=== PATIENT | female | born 1945 | race Asian ===

== ENCOUNTER 2018-11-01 11:13 | Inpatient (IN) | payer MEDICARE, OTHER ==
--- NOTE | 2018-11-01 11:26 | PDOC ---
Attending Attestation - Resident Resident Name: Sa Ramandeepira - ED Attending Attestation I have performed the following: I have examined & evaluated the patient, The case was reviewed & discussed with the resident, I agree w/resident's findings & plan, Exceptions are as noted - HPI HPI: 73 yo F hx DM, HTN, HL presents with near syncope, sent by the OR. She was scheduled for elective hernia repair, but has not been feeling well. Has had urge to defecate, then strains, then almost passes out. Found to have bradycardia and hypotension, sent to ED for evaluation. - Physicial Exam PE: GENERAL: Awake, alert, and fully oriented, in no acute distress HEAD: No signs of trauma EYES: PERRLA, EOMI, sclera anicteric, conjunctiva clear ENT: Auricles normal inspection, hearing grossly normal, nares patent, oropharynx clear without exudates. Moist mucosa NECK: Normal ROM, supple, no lymphadenopathy, JVD, or masses LUNGS: Breath sounds equal, clear to auscultation bilaterally. No wheezes, and no crackles HEART: Bradycardic, normal S1 and S2, no murmurs, rubs or gallops ABDOMEN: Soft, nontender, normoactive bowel sounds. No guarding, no rebound. No masses EXTREMITIES: Normal range of motion, no edema. No clubbing or cyanosis. No cords, erythema, or tenderness NEUROLOGICAL: Cranial nerves II through XII grossly intact. Normal speech. Motor and sensation intact. Gait not tested due to nature of complaint. SKIN: Warm, Dry, normal turgor, no rashes or lesions noted. - Critical Care Time Total Critical Care Time: 60 Critical Care Statement: The care of this patient involved high complexity decision making to prevent further life threatening deterioration of the patient 's condition and/or to evaluate & treat vital organ system(s) failure or risk of failure. - Medical Decision Making 11/01/18 11:56 Pt with symptomatic bradycardia, found to have junctional rhythm on EKG. Atropine given with improvement in HR and BP. Will cont to monitor and give as needed. Pacer pads on. Labs, CXR, admit 11/01/18 12:41 Lab called, the CMP is hemolyzed, K was 7.8. We called back for creatinine, as we can start to treat if we suspect hyperkalemia. Creatinine is >2. Will give calcium and sodium bicarb. Repeat specimen sent now, await result. Will contact ICU at [facility] for approval. 11/01/18 12:[address] Guo, awaiting response. 11/01/18 13:22 Unhemolyzed K is 7.2. Case discussed with Dr. Houston. 11/01/18 13:38 Pt accepted to ICU bed 2. Will discuss admission with hospitalist presently. BLOCK SEALER Richard en route to ED. 11/01/18 13:42 Accepted for admission by hospitalist. Will arrange for transfer. 11/01/18 14:00 Second IV line placed by this blurb writer, to L hand. 11/01/18 14:16 Cardio consult changed to Dr. Perry. Pt initially stated her financial reporting consultant was not in our system, however, the pre-op was done by Dr. Perry (this information just came in). 11/01/18 15:03 EMS preparing patient for transport. Heart Score/ECG Review - ECG Impressions Comment:: EKG read 11:26- junctional rhythm, 46 bpm, no acute ST/T changes
[2018-11-01] MEDS ORDERED: ATROPINE SULFATE 1 MG/10 ML DISP.SYRIN IVPUSH ONE (11:36)
[2018-11-01] MEDS ORDERED: ATROPINE SULFATE 1 MG/10 ML DISP.SYRIN ONE (11:45)
--- NOTE | 2018-11-01 11:54 | PDOC ---
History of Present Illness - General Chief Complaint: Syncope/Near Syncope Stated Complaint: NEAR SYNCOPE Time Seen by Provider: 11/01/18 11:21 History Source: Family Exam Limitations: Language Barrier - History of Present Illness Initial Comments: 11/01/18 11:44 Pt is a 73yo F with PMH of HTN, DM, Hypothyroidism, HLD, Ventral Hernia presenting to ED for near-syncope. Per daughter, pt was to be getting ventral hernia repair today. Pt has been having severe abdominal pains and feels the need to have a bowel movement when she has it. Per daughter, pt started to have abdominal pain and went to use the bathroom. She was straining and started to turn blue. Pt was sent down to the ED. Fingerstick was 266. Pt is denying SOB, chest pain, lightheadedness, syncope, back pain, headache, numbness/tingling, cough, fevers, chills, vomiting, diarrhea. Endorses abdominal pain. No hemturia , dysuria, bloody stools. Pt had pre-op workup a couple day ago and pt had normal labs, ekg and stress test. Is not taking beta blockers. Had an episode of bradycardia in the past but was taking metoprolol. PMD: [place]: [facility] PMH: see hpi PSH: none Meds: see med rec Allergies: nkda Past History - Past Medical History Allergies/Adverse Reactions: Allergies Allergy/AdvReac Type Severity Reaction Status Date / Time No Known Allergies Allergy Verified 11/01/18 11:14 Home Medications: Ambulatory Orders Amlodipine Besylate 10 mg PO DAILY 10/28/18 Enalapril Maleate [Vasotec -] 10 mg PO BID 10/28/18 Insulin Glargine,Hum.rec.anlog [Lantus] 50 unit SQ DAILY 10/28/18 Insulin Sliding Scale [Novolog Vial Sliding Scale -] 10 units SQ DAILY 10/28/18 Levothyroxine [Synthroid -] 50 mcg PO DAILY 10/28/18 Simvastatin 10 mg PO HS 10/28/18 metFORMIN HCL [Metformin HCl] 1,000 mg PO BID 10/28/18 Anemia: No Asthma: No Cancer: No Cardiac Disorders: No CVA: No COPD: No CHF: No Dementia: No Diabetes: Yes GI Disorders: Yes (HERNIA) Disorders: No HTN: Yes Hypercholesterolemia: Yes Liver Disease: No Seizures: No Thyroid Disease: Yes - Suicide/Smoking/Psychosocial Hx Smoking History: Never smoked Have you smoked in the past 12 months: No Information on smoking cessation initiated: No Hx Alcohol Use: No Drug/Substance Use Hx: No Substance Use Type: None Hx Substance Use Treatment: No Cardiac Specific PMH - Complaint Specific PMHX Pacemaker: No Review of Systems - Review of Systems Constitutional: No: Chills, Fever, Weakness HEENTM: No: Symptoms Reported Respiratory: No: Symptoms reported, Cough, Shortness of Breath Cardiac (ROS): Yes: See HPI. No: Chest Pain, Lightheadedness, Palpitations ABD/GI: Yes: Constipated, Nausea, Abdominal cramping. No: Diarrhea, Rectal Bleeding, Vomiting, Tarry Stools : No: Symptoms Reported Musculoskeletal: No: Back Pain, Joint Pain, Neck Pain Integumentary: No: Symptoms Reported Neurological: No: Headache, Numbness, Tingling, Weakness *Physical Exam - Vital Signs Last Vital Signs Temp Pulse Resp BP Pulse Ox 98 F 62 20 103/49 L 99 11/01/18 14:12 11/01/18 14:12 11/01/18 14:12 11/01/18 14:12 11/01/18 14:12 - Physical Exam General Appearance: Yes: Nourished, Appropriately Dressed. No: Apparent Distress HEENT: positive: EOMI, CRYSTAL, Normal ENT Inspection Neck: positive: Trachea midline, Supple. negative: Lymphadenopathy (R), Lymphadenopathy (L) Respiratory/Chest: positive: Lungs Clear, Normal Breath Sounds Cardiovascular: positive: S1, S2, Bradycardia. negative: Edema, JVD, Murmur Vascular Pulses: Carotid (R): 2+, Carotid (L): 2+, Dorsalis-Pedis (R): 2+, Doralis-Pedis (L): 2+ Gastrointestinal/Abdominal: positive: Normal Bowel Sounds, Soft, Hernia. negative: Guarding, Rebound Musculoskeletal: negative: CVA Tenderness Extremity: positive: Normal Capillary Refill. negative: Pedal Edema, Swelling, Calf Tenderness Integumentary: positive: Normal Color, Dry, Warm Neurologic: positive: final assembly and packing supervisor II-XII NML intact, Fully Oriented, Alert, Normal Mood/ Affect, Normal Response, Motor Strength 11/06 ED Treatment Course - LABORATORY CBC & Chemistry Diagram: 11/01/18 11:40 11/01/18 12:40 - ADDITIONAL ORDERS Additional order review: Laboratory Results 11/01/18 11/01/18 11/01/18 12:40 11:40 11:40 PT with INR 14.1 H INR 1.27 H PTT (Actin FS) 26.6 Sodium 130 L Potassium 7.2 H* Chloride 104 Carbon Dioxide 13 L Anion Gap 13 BUN 32 H Creatinine 2.7 H Creat Clearance w eGFR 17.23 Random Glucose 228 H Calcium 9.7 Magnesium 1.5 L Total Bilirubin 1.0 AST 63 H ALT 52 Alkaline Phosphatase 60 Troponin I Total Protein 7.5 Albumin 4.2 TSH 7.86 H 11/01/18 11/01/18 11:40 11:40 PT with INR INR PTT (Actin FS) Sodium Cancelled Potassium Cancelled Chloride Cancelled Carbon Dioxide Cancelled Anion Gap Cancelled BUN Cancelled Creatinine Cancelled Creat Clearance w eGFR Cancelled Random Glucose Cancelled Calcium Cancelled Magnesium Cancelled Total Bilirubin Cancelled AST Cancelled ALT Cancelled Alkaline Phosphatase Cancelled Troponin I 0.05 Total Protein Cancelled Albumin Cancelled TSH 11/01/18 11:40 RBC 3.40 L MCV 95.0 MCHC 33.6 RDW 12.5 MPV 10.9 Neutrophils % 66.9 Lymphocytes % 25.6 Monocytes % 5.5 Eosinophils % 0.5 Basophils % 1.5 - Medications Given in the ED: ED Medications Discontinued Medications Generic Name Dose Route Start Last Admin Trade Name Freq PRN Reason Stop Dose Admin Acetaminophen 1,000 mg 11/01/18 12:17 11/01/18 12:25 Ofirmev Injection - IVPB 11/01/18 12:18 1,000 mg ONCE ONE Administration Albuterol Sulfate 1 amp 11/01/18 12:36 11/01/18 12:48 Ventolin 0.083% Nebulizer Soln - NEB 11/01/18 12:37 1 amp ONCE ONE Administration Atropine Sulfate 1 mg 11/01/18 11:36 11/01/18 11:50 Atropine Injection - IVPUSH 11/01/18 11:37 1 mg ONCE ONE Administration Calcium Gluconate 1,000 mg 11/01/18 12:35 11/01/18 13:03 Calcium Gluconate 10% - IVPUSH 11/01/18 12:36 1,000 mg ONCE ONE Administration Dextrose 25 gm 11/01/18 13:06 11/01/18 13:25 D50w (Vial) - IVPUSH 11/01/18 13:07 25 gm NOW ONE Administration Sodium Chloride 1,000 mls @ 1,000 mls/hr 11/01/18 12:32 11/01/18 12:38 Normal Saline - IV 11/01/18 13:31 1,000 mls/hr ASDIR STA Administration Insulin Human Regular 6 units 11/01/18 13:06 11/01/18 13:50 Novolin R Vial *For Ivpush Or Iv Drip Only* IVPUSH 11/01/18 13:07 6 units ONCE ONE Administration Ondansetron HCl 4 mg 11/01/18 12:32 11/01/18 12:36 Zofran Injection IVPUSH 11/01/18 12:33 4 mg ONCE ONE Administration Sodium Bicarbonate 50 meq 11/01/18 12:39 11/01/18 12:54 Sodium Bicarbonate 8.4% - IVPUSH 11/01/18 12:40 50 meq ONCE ONE Administration Medical Decision Making - Critical Care Time Total Critical Care Time (minutes): 40 Critical Care Statement: The care of this patient involved high complexity decision making to prevent further life threatening deterioration of the patient 's condition and/or to evaluate & treat vital organ system(s) failure or risk of failure. - Medical Decision Making Pt is a 73yo F with PMH of HTN, DM, Hypothyroidism, HLD, Ventral Hernia presenting to ED for near-syncope. Per daughter, pt was to be getting ventral hernia repair today. Pt has been having severe abdominal pains and feels the need to have a bowel movement when she has it. Per daughter, pt started to have abdominal pain and went to use the bathroom. She was straining and started to turn blue. Pt was sent down to the ED. Fingerstick was 266. Pt is denying SOB, chest pain, lightheadedness, syncope, back pain, headache, numbness/tingling, cough, fevers, chills. Endorses abdominal pain. No hemturia, dysuria, bloody stools. Pt had pre-op workup a couple day ago and pt had normal labs, ekg and stress test. Is not taking beta blockers. Had an episode of bradycardia in the past but was taking metoprolol. Vitals: HR high 30s, BP 90s/40s, saturating well on 2L NC. PE: extremities feel cold, lungs cta, bradycardic, mentating well, soft abdomen, ventral hernia. ddx includes but not limited to arrhythmia, acs, mi, shock (septic v. cardiogenic v. hypovolemic), hypoglycemia, hypothyroidism, electrolyte abnormality, malignancy, autoimmune disorder, perforation, AAA -ekg -labs -cxr. -atropine, fluids 11/01/18 11:55 after atropine 1mg: HR in 70s. BP 126/96. 97% 2L NC repeat EKG. shows junctional rhythm. labs hemolyzed however lab reported hemolyzed sample K 7.8. Cr 2.7 -calcium gluconate, bicarb, albuterol 11/01/18 13:07 10/28 labs: K 5.4, Cr 0.86 BUN 14 10/28 EKG: NSR at [address] Haji about pt. labs show K 7.2, Cr 2.7, M 1.5. Dr. Houston on board, pt needs dialysis and icu. Pt accepted to icu. pt difficult stick. second line access in L hand. *DC/Admit/Observation/Transfer Diagnosis at time of Disposition: LOPEZ (acute kidney injury), Hyperkalemia, Bradycardia Hypotension Qualifiers: Hypotension type: unspecified hypotension type Qualified Code(s): I95.9 - Hypotension, unspecified - Discharge Dispostion Condition at time of disposition: Stable Decision to Admit order Date/Time: Decision to Admit Order Category Date Time Status Decision to Admit to Hospital Routine Admission 11/01/18 13:09 Active - Referrals - Patient Instructions - Post Discharge Activity
[2018-11-01 11:55] LABS: BASO % 1.5 % (0-2.0); EOS % 0.5 % (0-4.5); HEMATOCRIT 32.3 % (32.4-45.2); HEMOGLOBIN 10.9 GM/dl (10.7-15.3); LYMPH % 25.6 % (8-40); MCHC 33.6 g/dl (32.0-36.0); MEAN PLT VOLUME 10.9 fl (7.5-11.1); MONO % 5.5 % (3.8-10.2); NEUT % 66.9 % (42.8-82.8); PLATELET COUNT 198 K/MM3 (134-434); RDW 12.5 % (11.6-15.6); WHITE BLOOD COUNT 9.4 K/mm3 (4.0-10.8)
[2018-11-01] MEDS ORDERED: ACETAMINOPHEN 1000 MG/100 ML VIAL (NON FORMULARY) IVPB ONE (12:17)
[2018-11-01] MEDS ORDERED: ACETAMINOPHEN INJECTION 100 ML IVPB ONE (12:20)
[2018-11-01] MEDS ORDERED: SODIUM CHLORIDE 1,000 ML IV STA (12:32)
[2018-11-01] MEDS ORDERED: ONDANSETRON 4 MG/2 ML VIAL ONE (12:32)
[2018-11-01] MEDS ORDERED: ONDANSETRON 4 MG/2 ML VIAL IVPUSH ONE (12:32)
[2018-11-01 12:34] LABS: ACTIVATED PTT 26.6 SECONDS (25.2-36.5)
[2018-11-01] MEDS ORDERED: SODIUM BICARBONATE 4.2% 5 MEQ/10 ML DISP.SYRIN IVPUSH ONE (12:35)
[2018-11-01] MEDS ORDERED: CALCIUM GLUCONATE 10% - 1,000 MG/10 ML VIAL IVPUSH ONE ×2 (12:35→18:46)
[2018-11-01] MEDS ORDERED: ALBUTEROL SO4 0.083% IH SOL 2.5 MG/3 ML VIAL.NEB. NEB ONE ×3 (12:36→18:47)
[2018-11-01 12:38] LABS: INR 1.27 (0.82-1.09); PROTHROMBIN TIME (PATIENT) 14.1 SEC (10.2-13.0)
[2018-11-01] MEDS ORDERED: SODIUM BICARBONATE 8.4% 50 MEQ/50 ML DISP.SYRIN IVPUSH ONE ×4 (12:39→17:37)
[2018-11-01] MEDS ORDERED: CALCIUM GLUCONATE 10% - 1,000 MG/10 ML VIAL ONE (12:40)
[2018-11-01] MEDS ORDERED: SODIUM BICARBONATE 8.4% 50 MEQ/50 ML VIAL ONE ×2 (12:40→17:54)
[2018-11-01 13:06] LABS: POTASSIUM 7.2 mmol/L (3.5-5.1)
[2018-11-01] MEDS ORDERED: DEXTROSE 50%-WATER - 25 GM/50 ML VIAL IVPUSH ONE ×2 (13:06→18:48)
[2018-11-01] MEDS ORDERED: INSULIN REGULAR HUMAN 100 UNITS/ML *VIAL IVPUSH ONE ×2 (13:06→18:47)
[2018-11-01] MEDS ORDERED: DEXTROSE 50%-WATER 25 GM/50 ML DISP.SYRIN ONE (13:09)
[2018-11-01] MEDS ORDERED: INSULIN REGULAR HUMAN 100 UNITS/ML *VIAL ONE (13:09)
[2018-11-01 13:11] LABS: ALBUMIN 4.2 g/dl (3.4-5.0); ALK PHOS 60 U/L (45-117); ANION GAP 13 MMOL/L (8-16); BLOOD UREA NITROGEN 32 mg/dl (7-18); CALCIUM 9.7 mg/dl (8.5-10); CHLORIDE 104 mmol/L (98-107); CO2 13 mmol/L (21-32); CREATININE 2.7 mg/dl (0.55-1.3); GLUCOSE,RANDOM 228 mg/dl (74-106); MAGNESIUM 1.5 mg/dL (1.8-2.4); SGOT/AST 63 U/L (15-37); SGPT/ALT 52 U/L (13-61); SODIUM 130 mmol/L (136-145); TOT PROT 7.5 g/dl (6.4-8.2)
--- NOTE | 2018-11-01 14:07 | HP ---
CHIEF COMPLAINT: Syncope PCP: HISTORY OF PRESENT ILLNESS: 73 year-old female with a PMH significant for HTN, HLD, and Type II IDDM. Patient was scheduled for a ventral hernia repair today but it was cancelled due to the following events. Last night patient was eating dinner when she experienced lower abdominal cramping. She felt the urge to move her bowels and went toward the bathroom. She became incontinent of a small amount of diarrhea on the floor. She then vomited a small amount. This morning patient came to [facility] for her planned surgery. She again developed abdominal cramping. She went to the bathroom, strained to have a BM, and syncopized on the toilet. Patient was stabilized and transferred to the ED. Patient had pre-op medical and cardiology evaluations which were unremarkable ( see paper chart). She had an echocardiagram and a nuclear stress test which were normal. Her pre-op labs were normal. ER course was notable for: (1) ECG: junctional rhythm @46bpm (2) Hypotensive (91/44, 103/38); given NS x 1L (3) K 7.2; serum bicarb 13; BUN 32; Cr 2.7 (pre-op 0.8); Mg 1.5 Recent Travel: No PAST MEDICAL HISTORY: Hypertension Hyperlipidemia Type II IDDM PAST SURGICAL HISTORY: None reported Social History: 5 children; lives with daughter Smoking: never Alcohol: no Drugs: no Family History: Allergies No Known Allergies Allergy (Verified 11/01/18 11:14) HOME MEDICATIONS: Home Medications Medication Instructions Recorded Amlodipine Besylate 10 mg PO DAILY 10/28/18 Enalapril Maleate [Vasotec -] 10 mg PO BID 10/28/18 Insulin Glargine,Hum.rec.anlog 50 unit SQ DAILY 10/28/18 [Lantus] Insulin Sliding Scale [Novolog 10 units SQ DAILY 10/28/18 Vial Sliding Scale -] Levothyroxine [Synthroid -] 50 mcg PO DAILY 10/28/18 Simvastatin 10 mg PO HS 10/28/18 metFORMIN HCL [Metformin HCl] 1,000 mg PO BID 10/28/18 REVIEW OF SYSTEMS CONSTITUTIONAL: Absent: fever, chills, diaphoresis, generalized weakness, malaise, loss of appetite, weight change HEENT: Absent: rhinorrhea, nasal congestion, throat pain, throat swelling, difficulty swallowing, mouth swelling, ear pain, eye pain, visual changes CARDIOVASCULAR: Absent: chest pain, syncope, palpitations, irregular heart rate, lightheadedness , peripheral edema RESPIRATORY: Absent: cough, shortness of breath, dyspnea with exertion, orthopnea, wheezing, stridor, hemoptysis GASTROINTESTINAL: +abdominal cramping, incontinence of stool, diarrhea Absent: abdominal pain, abdominal distension, nausea, vomiting, diarrhea, constipation, melena, hematochezia GENITOURINARY: Absent: dysuria, frequency, urgency, hesitancy, hematuria, flank pain, genital pain MUSCULOSKELETAL: Absent: myalgia, arthralgia, joint swelling, back pain, neck pain SKIN: Absent: rash, itching, pallor HEMATOLOGIC/IMMUNOLOGIC: Absent: easy bleeding, easy bruising, lymphadenopathy, frequent infections ENDOCRINE: Absent: unexplained weight gain, unexplained weight loss, heat intolerance, cold intolerance NEUROLOGIC: Absent: headache, focal weakness or paresthesias, dizziness, unsteady gait, seizure, mental status changes, bladder or bowel incontinence PSYCHIATRIC: Absent: anxiety, depression, suicidal or homicidal ideation, hallucinations. PHYSICAL EXAMINATION Vital Signs - 24 hr 11/01/18 11/01/18 11/01/18 11:13 11:20 11:54 Temperature 98 F Pulse Rate 47 L 48 L Pulse Rate [ 71 Left Apical] Respiratory 18 16 Rate Blood Pressure 94/47 L Blood Pressure 126/96 [Left Arm] O2 Sat by Pulse 92 L 97 97 Oximetry (%) GENERAL: Awake, alert, and fully oriented, in no acute distress. HEAD: Normal with no signs of trauma. EYES: Pupils equal, round and reactive to light, extraocular movements intact, sclera anicteric, conjunctiva clear. No lid lag. EARS, NOSE, THROAT: Ears normal, nares patent, oropharynx clear without exudates. Dry mucous membranes. LUNGS: Breath sounds equal, clear to auscultation bilaterally. No wheezes, and no crackles. No accessory muscle use. HEART: Regular rate and rhythm, normal S1 and S2 ABDOMEN: Soft, nontender, not distended, hypoactive bowel sounds, no guarding, no rebound tenderness. MUSCULOSKELETAL: Normal range of motion at all joints. No bony deformities or tenderness. No CVA tenderness. UPPER EXTREMITIES: 2+ pulses, warm, well-perfused. No cyanosis. No clubbing. No peripheral edema. LOWER EXTREMITIES: 2+ pulses, warm, well-perfused. No calf tenderness. No peripheral edema. NEUROLOGICAL: Cranial nerves II-XII intact. Normal speech. Laboratory Results - last 24 hr 11/01/18 11/01/18 11/01/18 11:40 11:40 11:40 WBC 9.4 RBC 3.40 L Hgb 10.9 Hct 32.3 L MCV 95.0 MCH 32.0 MCHC 33.6 RDW 12.5 Plt Count 198 MPV 10.9 Absolute Neuts (auto) 6.4 Neutrophils % 66.9 Lymphocytes % 25.6 Monocytes % 5.5 Eosinophils % 0.5 Basophils % 1.5 PT with INR INR PTT (Actin FS) Sodium Cancelled Potassium Cancelled Chloride Cancelled Carbon Dioxide Cancelled Anion Gap Cancelled BUN Cancelled Creatinine Cancelled Creat Clearance w eGFR Cancelled Random Glucose Cancelled Calcium Cancelled Magnesium Cancelled Total Bilirubin Cancelled AST Cancelled ALT Cancelled Alkaline Phosphatase Cancelled Troponin I 0.05 Total Protein Cancelled Albumin Cancelled TSH 11/01/18 11/01/18 11/01/18 11:40 11:40 12:40 WBC RBC Hgb Hct MCV MCH MCHC RDW Plt Count MPV Absolute Neuts (auto) Neutrophils % Lymphocytes % Monocytes % Eosinophils % Basophils % PT with INR 14.1 H INR 1.27 H PTT (Actin FS) 26.6 Sodium 130 L Potassium 7.2 H* Chloride 104 Carbon Dioxide 13 L Anion Gap 13 BUN 32 H Creatinine 2.7 H Creat Clearance w eGFR 17.23 Random Glucose 228 H Calcium 9.7 Magnesium 1.5 L Total Bilirubin 1.0 AST 63 H ALT 52 Alkaline Phosphatase 60 Troponin I Total Protein 7.5 Albumin 4.2 TSH 7.86 H ASSESSMENT/PLAN 73 year-old female with a PMH significant for HTN, HLD, and Type II IDDM. Admitted for acute renal failure, hyperkalemia, and bradycardia. Patient had pre-op medical and cardiology evaluations which were unremarkable ( see paper chart). She had an EKG, echocardiagram, and a nuclear stress test all of which were normal. Her pre-op labs were normal. ER course was notable for: (1) ECG: junctional rhythm @46bpm; given atropine 1mg x 1 (2) Hypotensive (91/44, 103/38); given NS x 1L (3) K 7.2; serum bicarb 13; BUN 32; Cr 2.7 (pre-op 0.8); Mg 1.5 (4) calcium gluconate 1g x 1; regular insulin 6U; D50 25g x 1; Mg 1g x 1; sodium bicarb 50meq x 1 Bradycardia --pre-op echo was normal, ECG was sinus rhythm --in ED: junctional rhythm @ 46bpm; mildly hypotensive; atropine administered ; pacer pads on --first troponin neg, two pending --telemetry monitoring --correct electrolyte derangement --cardiology consult Dr. Perry pending, he is aware Acute kidney injury --Cr 2.7, pre-op on 10/20 was 0.86; CTAP on 07/27/18 showed normal kidneys ( paper chart) --appears dry; mackenzie placed with NO urine output; last time urinated was 8: 30am this morning --IV fluids --urine studies --renal consult Dr. Houston pending, he is aware Hyperkalemia --calcium gluconate, insulin, D50 given in ED --repeat lytes at 5:00pm Hypomagnesemia --repleted in ED --repeat lytes at 5:00pm Hyponatremia --corrected Na 132 Type II IDDM --A1C 6.6 on pre-op testing --Novolog sliding scale coverage DVT prophylaxis: SCDs Dispo: awaiting transfer to ICU. Full code. Visit type - Emergency Visit Emergency Visit: Yes Care time: The patient presented to the Emergency Department on the above date and was hospitalized for further evaluation of their emergent condition. - New Patient This patient is new to me today: Yes Date on this admission: 11/01/18 - Critical Care Critical Care patient: Yes Total Critical Care Time (in minutes): 90 Critical Care Statement: The care of this patient involved high complexity decision making to prevent further life threatening deterioration of the patient 's condition and/or to evaluate & treat vital organ system(s) failure or risk of failure.
[2018-11-01] MEDS ORDERED: MAGNESIUM SULF 50% (8.12 MEQ/2 ML-1 GM VIAL) IVPB ONE ×2 (14:54→14:58)
[2018-11-01] MEDS ORDERED: MAGNESIUM 1GM/D5W - 2 GM/200 ML IVPB IVPB ONE (14:57)
--- NOTE | 2018-11-01 15:07 | EKG ---
Test Reason : Blood Pressure : / mmHG Vent. Rate : 072 BPM Atrial Rate : 110 BPM P-R Int : 000 ms QRS Dur : 088 ms QT Int : 376 ms P-R-T Axes : 000 045 043 degrees QTc Int : 411 ms ATRIAL FIBRILLATION WITH A COMPETING JUNCTIONAL PACEMAKER POSSIBLE ANTERIOR INFARCT , AGE UNDETERMINED ABNORMAL ECG WHEN COMPARED WITH ECG OF 01-NOV-2018 11:22, ATRIAL FIBRILLATION HAS REPLACED JUNCTIONAL RHYTHM VENT. RATE HAS INCREASED BY 26 BPM Confirmed by MD ASH MOYSES ([id number]) on 11/01/2018 3:07:44 PM Referred By: YVONNE MAYER Confirmed By:NELA ASH MD
--- NOTE | 2018-11-01 15:09 | EKG ---
Test Reason : Blood Pressure : / mmHG Vent. Rate : 046 BPM Atrial Rate : 267 BPM P-R Int : 000 ms QRS Dur : 086 ms QT Int : 436 ms P-R-T Axes : 000 046 041 degrees QTc Int : 381 ms JUNCTIONAL RHYTHM ABNORMAL ECG NO PREVIOUS ECGS AVAILABLE Confirmed by MD ASH MOYSES ([id number]) on 11/01/2018 3:08:33 PM Referred By: YVONNE MAYER Confirmed By:NELA ASH MD
[2018-11-01] MEDS ORDERED: SODIUM CHLORIDE 1,000 ML IV SCH ×3 (16:15→19:00)
--- NOTE | 2018-11-01 16:22 | CONSULT ---
Consultation: REQUESTING PROVIDER: CONSULT REQUEST: We have been asked to medically evaluate this patient for hyperkalemia. HISTORY OF PRESENT ILLNESS: Patient is a 73 y/o female with a history of HTN, DM, and hypothyroidism who presented to [place] for an elective hernia repair. Patient began having cramping last night. She felt as if she had to use the bathroom but stool did not come out. This cramping would come and go. She was able to pass a little stool this morning. She went to [facility] for her surgery and while there she began to feel dizzy with cramping. She was found to be bradycardic. She has had this hernia for about 6 months now, without any problems before. Hyperkalemia, shiley placed by Dr. Benitez, patient to have emergent dialysis tonight REVIEW OF SYSTEMS: Denies: fever, chills, chest pain, shortness of breath, diarrhea, headaches Pertinent: nausea; cramping, dizziness PHYSICAL EXAMINATION Vital Signs Temperature 97.6 F 11/01/18 16:06 Pulse Rate 54 L 11/01/18 16:06 Respiratory Rate 30 H 11/01/18 16:06 Blood Pressure 119/91 11/01/18 16:06 O2 Sat by Pulse Oximetry (%) 93 L 11/01/18 15:56 GENERAL: Awake, alert, and fully oriented, in no acute distress. HEAD: Normal with no signs of trauma. EYES: Pupils equal, round and reactive to light, extraocular movements intact, LUNGS: Breath sounds equal, clear to auscultation bilaterally. No wheezes, and no crackles. No accessory muscle use. HEART: Regular rate and rhythm, normal S1 and S2 without murmur, rub or gallop. ABDOMEN: Soft,large reproducible ventral hernia, skin cool over hernia, not painful to deep palpation, minimal bowel sounds heard MUSCULOSKELETAL: Normal range of motion at all joints. LOWER EXTREMITIES: 2+ pulses, warm, well-perfused. No calf tenderness. No peripheral edema. PSYCHIATRIC: Cooperative. Good eye contact. Appropriate mood and affect. SKIN: Warm, dry, normal turgor, no rashes or lesions noted. CBCD WBC 9.4 K/mm3 (4.0-10.8) 11/01/18 11:40 RBC 3.40 M/mm3 (3.60-5.2) L 11/01/18 11:40 Hgb 10.9 GM/dl (10.7-15.3) 11/01/18 11:40 Hct 32.3 % (32.4-45.2) L 11/01/18 11:40 MCV 95.0 fl (80-96) 11/01/18 11:40 MCHC 33.6 g/dl (32.0-36.0) 11/01/18 11:40 RDW 12.5 % (11.6-15.6) 11/01/18 11:40 Plt Count 198 K/MM3 (134-434) 11/01/18 11:40 MPV 10.9 fl (7.5-11.1) 11/01/18 11:40 CMP Sodium 130 mmol/L (136-145) L 11/01/18 12:40 Potassium 7.2 mmol/L (3.5-5.1) H* 11/01/18 12:40 Chloride 104 mmol/L (98-107) 11/01/18 12:40 Carbon Dioxide 13 mmol/L (21-32) L 11/01/18 12:40 Anion Gap 13 MMOL/L (8-16) 11/01/18 12:40 BUN 32 mg/dl (7-18) H 11/01/18 12:40 Creatinine 2.7 mg/dl (0.55-1.3) H 11/01/18 12:40 Creat Clearance w eGFR 17.23 (>60) 11/01/18 12:40 Calcium 9.7 mg/dl (8.5-10) 11/01/18 12:40 Total Bilirubin 1.0 mg/dl (0.2-1) 11/01/18 12:40 AST 63 U/L (15-37) H 11/01/18 12:40 ALT 52 U/L (13-61) 11/01/18 12:40 Alkaline Phosphatase 60 U/L (45-117) 11/01/18 12:40 Total Protein 7.5 g/dl (6.4-8.2) 11/01/18 12:40 Albumin 4.2 g/dl (3.4-5.0) 11/01/18 12:40 Active Medications Atorvastatin Calcium (Lipitor -) 10 mg PO HS SU Chlorhexidine Gluconate (Hibiclens For Decolonization -) 1 applic TP HS SU Sodium Chloride (Normal Saline -) 1,000 mls @ 75 mls/hr IV ASDIR SU Insulin Aspart (Novolog Vial) 0 units SQ ACHS SU; Protocol Levothyroxine Sodium (Synthroid -) 50 mcg PO DAILY@0700 [facility] Mupirocin (Bactroban Ointment (For Decolonization) -) 1 applic NS BID SU Stop: 11/06/18 21:59 ASSESSMENT/PLAN: Patient is a 73 y/o female with a history of HTN, DM, and hypothyroidism who presented to [place] for an elective hernia repair. Neuro - A& O x3 - stable Cardio - recent bradycardia and syncope, likely 2/2 to straining - junctional bradycardia 2/2 to high K - ekg changes showing a junctional rhytym on ekg, f/u repeat ekg - followed by Cardio - BP improved with fluids - hx of hypertension hold for now Pulm - stable Renal - K: 7.2, repeat 7.5, - insulin, D5, and calcium gluconate, and albuterol given at [place], another round of insulin calcium gluconate and albuterol - followed by Dr. Houston, f/u repeat BMP - f/u renal ultrasound, urine lytes - bicarb increase BMP not in computer: K : 7.5, Na 132, Ca 9, Cl 103, CO2 16, glucose 229, Mg 2.2, BUN 33, Phosp 5.2, Cr 5.3 - Shiley placement per Dr. Benitez, patient to go to dialysis tonight per Dr Dr. Houston - f/u K closely - continue NS @ 100 - could be 2/[address] with contrast for hernia preoperatively, otherwise no hx of CKD GI - NPO - abdominal CT to r/o incarcerated hernia - non tender and passing flatus ID - afebrile, unlikely infectious source - f/u blood cx, urine cx Endo - hx hypothyroidism, continue levothyroxine 50 mcg - hx DM, monitor sugars can add SS if needed Heme - SCD's for prophylaxis FEN - NPO - normal saline - monitor lytes closely Dispo: We will continue to follow the patient. Thank you for this consultative opportunity. Visit type - Emergency Visit Emergency Visit: No - New Patient This patient is new to me today: Yes Date on this admission: 11/01/18 - Critical Care Critical Care patient: Yes Total Critical Care Time (in minutes): 60 Critical Care Statement: The care of this patient involved high complexity decision making to prevent further life threatening deterioration of the patient 's condition and/or to evaluate & treat vital organ system(s) failure or risk of failure.
--- NOTE | 2018-11-01 16:34 | HOSP ---
Subjective - Review of Symptoms General: Yes: Fatigue HEENT: Yes: Other Pulmonary: Yes: Other Gastrointestinal: Yes: Abdominal Pain Genitourinary: Yes: Retention Neurological: Yes: Weakness Physical Examination Vital Signs: Vital Signs Temperature 97.6 F 11/01/18 16:06 Pulse Rate 54 L 11/01/18 16:06 Respiratory Rate 30 H 11/01/18 16:06 Blood Pressure 119/91 11/01/18 16:06 O2 Sat by Pulse Oximetry (%) 93 L 11/01/18 15:56 Constitutional: Yes: No Distress Eyes: Yes: WNL HENT: Yes: WNL Neck: Yes: WNL Cardiovascular: Yes: Other Respiratory: Yes: Regular Gastrointestinal: Yes: Normal Bowel Sounds, Soft Labs: CBC, BMP 11/01/18 11:40 11/01/18 12:40 Hospitalist Encounter Assessment: patient is a 73 year old female with past medical history of HTN, DM, hypothyroidism, HLD, ventral hernia presenting to ED for near-syncope. Patient scheduled for a ventral hernia repair but has been having severe abdominal pain and a near syncopal episode at home. patient had a pre op workup up a few days prior and reported to be within normal limits. Patient transfer from [place], signout received on this patient hyperkalemia @ 7.4. awake alert, in no acute distress. icu monitoring for elevated K, electrolyte imbalance and elevated lactic acid. no urine output on mackenzie catheter, to be replaced by primary RN patient offers no complaints. repeat abd/pelvis ct without contrast family at bedside.
--- NOTE | 2018-11-01 17:14 | CON.CARD ---
Cardiology Consult (text) - Consultation Consultation Note: cc: syncope hpi: 73 f hx htn, hld, dm, hypothyroid, here with syncope. Pt was here for elective hernia repair today. Prior to surgery she had abd pain and tried to use restroom. While on toilet she was pushing and then per family member she passed out. Evaluated and found to have low bp and hr and sent to ER. In er had junctional rhythm in 30s and given atropine with improvement. Found to be in joyce with k in 7s. Transferred to icu. Had been feeling well until last night when had n/v and diarrhea with abd pain. Sees me for cardio. pmh: per hpi psh: nc social: no tob fam: no premature cad scd ros: per hpi; all others normal meds: Home Medications Medication Instructions Recorded Amlodipine Besylate 10 mg PO DAILY 10/28/18 Enalapril Maleate [Vasotec -] 10 mg PO BID 10/28/18 Insulin Glargine,Hum.rec.anlog 50 unit SQ DAILY 10/28/18 [Lantus] Insulin Sliding Scale [Novolog 10 units SQ DAILY 10/28/18 Vial Sliding Scale -] Levothyroxine [Synthroid -] 50 mcg PO DAILY 10/28/18 Simvastatin 10 mg PO HS 10/28/18 metFORMIN HCL [Metformin HCl] 1,000 mg PO BID 10/28/18 pe: Vital Signs Period Temp Pulse Resp BP Sys/Cordova Pulse Ox Last 24 Hr 97.6 F-98 F 47-71 16-30 91-126/38-96 92-99 nad no jvd rrr s1s2 no mrg cta bl nl eff aao3 no le e/c/c abd nt nd pos bs no jaundice diaphoresis pos dp pt no carotid bruits Laboratory Last Values WBC 9.4 K/mm3 (4.0-10.8) 11/01/18 11:40 RBC 3.40 M/mm3 (3.60-5.2) L 11/01/18 11:40 Hgb 10.9 GM/dl (10.7-15.3) 11/01/18 11:40 Hct 32.3 % (32.4-45.2) L 11/01/18 11:40 MCV 95.0 fl (80-96) 11/01/18 11:40 MCH 32.0 pg (25.7-33.7) 11/01/18 11:40 MCHC 33.6 g/dl (32.0-36.0) 11/01/18 11:40 RDW 12.5 % (11.6-15.6) 11/01/18 11:40 Plt Count 198 K/MM3 (134-434) 11/01/18 11:40 MPV 10.9 fl (7.5-11.1) 11/01/18 11:40 Absolute Neuts (auto) 6.4 K/mm3 11/01/18 11:40 Neutrophils % 66.9 % (42.8-82.8) 11/01/18 11:40 Lymphocytes % 25.6 % (8-40) 11/01/18 11:40 Monocytes % 5.5 % (3.8-10.2) 11/01/18 11:40 Eosinophils % 0.5 % (0-4.5) 11/01/18 11:40 Basophils % 1.5 % (0-2.0) 11/01/18 11:40 PT with INR 14.1 SEC (10.2-13.0) H 11/01/18 11:40 INR 1.27 (0.82-1.09) H 11/01/18 11:40 PTT (Actin FS) 26.6 SECONDS (25.2-36.5) 11/01/18 11:40 Sodium 130 mmol/L (136-145) L 11/01/18 12:40 Potassium 7.2 mmol/L (3.5-5.1) H* 11/01/18 12:40 Chloride 104 mmol/L (98-107) 11/01/18 12:40 Carbon Dioxide 13 mmol/L (21-32) L 11/01/18 12:40 Anion Gap 13 MMOL/L (8-16) 11/01/18 12:40 BUN 32 mg/dl (7-18) H 11/01/18 12:40 Creatinine 2.7 mg/dl (0.55-1.3) H 11/01/18 12:40 Creat Clearance w eGFR 17.23 (>60) 11/01/18 12:40 Random Glucose 228 mg/dl (74-106) H 11/01/18 12:40 Calcium 9.7 mg/dl (8.5-10) 11/01/18 12:40 Magnesium 1.5 mg/dL (1.8-2.4) L 11/01/18 12:40 Total Bilirubin 1.0 mg/dl (0.2-1) 11/01/18 12:40 AST 63 U/L (15-37) H 11/01/18 12:40 ALT 52 U/L (13-61) 11/01/18 12:40 Alkaline Phosphatase 60 U/L (45-117) 11/01/18 12:40 Troponin I 0.05 ng/ml (0.00-0.05) 11/01/18 11:40 Total Protein 7.5 g/dl (6.4-8.2) 11/01/18 12:40 Albumin 4.2 g/dl (3.4-5.0) 11/01/18 12:40 TSH 7.86 uIU/ml (0.358-3.74) H 11/01/18 11:40 ecgs reviewed: junctional rhythm with no ischemic changes, hr 46, nl qtc. Repeat ecg with sr and competing junctional rhythm, no ischemic findings, nl qtc tele: sr with competing jcnal rhythm, hr 50s-60s cxr: clear lungs echo 10/2018: nl lv/rv, no sig valve path mibi 10/2018: nl mpi est cct 35 mins a/p: 73 f hx htn, hld, dm, hypothyroid, here with syncope. syncope, bradycardia, hypotension: -syncope seems to be vagal episode from straining for BM and abd pain -she also has junctional bradycardia likely 2/2 to k in 7's. Continued correction of hyperkalemia should improve HR. currently hr stable in 50s-60s with sinus brandi and competing junctional rhythm -bp also improved with ivfs -monitor in icu on tele joyce, hyperkalemia: -recent preop labs unremarkable but now presenting with joyce and hyperkalemia -ivfs -renal consulted n/v, abd pain: -consider GI eval htn: -hold home meds for now given hypotension hypothyroid -on synthroid hld: -cont statin
[2018-11-01] MEDS ORDERED: SODIUM CHLORIDE 0.9% 500 ML INFUS.BAG IV ONE (17:29)
[2018-11-01] MEDS ORDERED: DEXTROSE 5%-WATER 500 ML PVC-FREE INFUS.BAG IV SCH (17:45)
--- NOTE | 2018-11-01 18:01 | CONSULT ---
Consult Consult Specialty:: Nephrology Reason for Consultation:: LOPEZ and hyperkalemia - History of Present Illness Chief Complaint: sent by OR to ER for hypotension and bradycardia History of Present Illness: Pt is a 73 year old female with pmhx of DM, HTN, and HLD who was initially admitted to [place] for elective hernia repair. She was found to be hypotensive an bradycardic. She was sent to the ER for further management. She was found to have a junctional rythm with a rate of 30 to 40 in the ER. On bloodwork she was found to be hyperkalemic. I was called to evaluate her. She was on lisinopril as outpt and dose recently increased. She is awake and alert. SHe denies dysuria or hematuria. She denies history of CKD. She denies nsaid use. - History Source History Provided By: Patient, Family Member, Medical Record - Past Medical History Cardio/Vascular: Yes: HTN, Hyperlipdemia Gastrointestinal: Yes: Other (hernia) ...: No Endocrine: Yes: Diabetes Mellitus - Alcohol/Substance Use Hx Alcohol Use: No - Smoking History Smoking history: Never smoked Have you smoked in the past 12 months: No Home Medications - Allergies Allergies/Adverse Reactions: Allergies Allergy/AdvReac Type Severity Reaction Status Date / Time No Known Allergies Allergy Verified 11/01/18 11:14 - Home Medications Home Medications: Ambulatory Orders Amlodipine Besylate 10 mg PO DAILY 10/28/18 Enalapril Maleate [Vasotec -] 10 mg PO BID 10/28/18 Insulin Glargine,Hum.rec.anlog [Lantus] 50 unit SQ DAILY 10/28/18 Insulin Sliding Scale [Novolog Vial Sliding Scale -] 10 units SQ DAILY 10/28/18 Levothyroxine [Synthroid -] 50 mcg PO DAILY 10/28/18 Simvastatin 10 mg PO HS 10/28/18 metFORMIN HCL [Metformin HCl] 1,000 mg PO BID 10/28/18 Family Disease History - Family Disease History Family History: Denies Review of Systems - Review of Systems Constitutional: reports: Malaise Eyes: reports: No Symptoms HENT: reports: No Symptoms Neck: reports: No Symptoms Cardiovascular: reports: No Symptoms Respiratory: reports: No Symptoms Gastrointestinal: reports: No Symptoms Genitourinary: reports: No Symptoms Musculoskeletal: reports: No Symptoms Integumentary: reports: No Symptoms Neurological: reports: No Symptoms Endocrine: reports: No Symptoms Hematology/Lymphatic: reports: No Symptoms Psychiatric: reports: No Symptoms Physical Exam Vital Signs: Vital Signs Temperature 97.6 F 11/01/18 16:06 Pulse Rate 54 L 11/01/18 16:06 Respiratory Rate 30 H 11/01/18 16:06 Blood Pressure 119/91 11/01/18 16:06 O2 Sat by Pulse Oximetry (%) 93 L 11/01/18 15:56 Constitutional: Yes: Calm Eyes: Yes: Conjunctiva Clear HENT: Yes: Atraumatic Cardiovascular: Yes: S1, S2 Respiratory: Yes: CTA Bilaterally Gastrointestinal: Yes: Soft Renal/: Yes: Mackenzie Present Musculoskeletal: Yes: WNL Edema: No Neurological: Yes: Oriented Psychiatric: Yes: Oriented Labs: Laboratory Tests 11/01/18 11/01/18 11:40 12:40 WBC 9.4 Hgb 10.9 Plt Count 198 Sodium 130 L Potassium 7.2 H* Chloride 104 Carbon Dioxide 13 L BUN 32 H Creatinine 2.7 H Imaging - Results Chest X-ray: Report Reviewed Assessment/Plan Current Medications Generic Name Dose Route Start Last Admin Trade Name Freq PRN Reason Stop Dose Admin Atorvastatin Calcium 10 mg 11/01/18 22:00 Lipitor - PO HS [facility] Chlorhexidine Gluconate 1 applic 11/01/18 22:00 Hibiclens For Decolonization - TP HS [facility] Sodium Chloride 1,000 mls @ 75 mls/hr 11/01/18 16:15 Normal Saline - IV ASDIR [facility] Sodium Bicarbonate 150 meq/ 1,150 mls @ 100 mls/hr 11/01/18 17:45 Dextrose IV Q11H [facility] Insulin Aspart 0 units 11/01/18 16:30 Novolog Vial SQ ACHS [facility] Protocol Levothyroxine Sodium 50 mcg 11/02/18 07:00 Synthroid - PO DAILY@0700 [facility] Mupirocin 1 applic 11/01/18 22:00 Bactroban Ointment (For Decolonization) - NS 11/06/18 21:59 BID [facility] Impression 1. LOPEZ 2. hyperkalemia 3. metabolic acidosis 4. DM 5. hernia 6. hypothyroidism Plan - potassium treated medically in ER - repeat bmp - rate is improving, still has juncitonal rythmn, discussed with cardio - will dialyze if her potassium is not responding - hold metformin - stop olivreio - check lactic acid - cont with fluids - pt now has access - flush mackenzie - check ultrasound kidneys - admit to ICU
[2018-11-01 18:07] LABS: BASO % 0.2 % (0-2.0); EOS % 0.2 % (0-4.5); HEMOGLOBIN 9.8 GM/dL (10.7-15.3); LYMPH % 25.1 % (8-40); MCHC 33.6 g/dl (32.0-36.0); MEAN CELL VOLUME 95.1 fl (80-96); MEAN PLT VOLUME 10.8 fl (7.5-11.1); MONO % 6.2 % (3.8-10.2); NEUT % 68.3 % (42.8-82.8); PLATELET COUNT 169 K/MM3 (134-434); RBC 3.05 M/mm3 (3.60-5.2); RDW 13.1 % (11.6-15.6); WHITE BLOOD COUNT 8.7 K/mm3 (4.0-10.0)
[2018-11-01 18:35] LABS: INR 1.14 (0.83-1.09); PROTHROMBIN TIME (PATIENT) 13.5 SEC (9.7-13.0)
[2018-11-01] MEDS: SODIUM BICARBONATE 8.4% - 150 MEQ in DEXTROSE 5%-WATER - 1,000 ML IV SCH (18:50)
[2018-11-01] MEDS: INSULIN (NOVOLOG) ASPART 100 UNITS/ML 10ML VIAL SQ SCH ×2 (18:51→22:39)
[2018-11-01] MEDS ORDERED: SODIUM CHLORIDE 250 ML IV PRN (19:02)
--- NOTE | 2018-11-01 19:05 | PN ---
Progress Note (short form) - Note Progress Note: Pt still with hyperkalemia. Spoke to family and they agree for HD. Called vascular surgery for edgar. HD at bedside in ICU today.
--- NOTE | 2018-11-01 19:17 | PN ---
Progress Note (short form) - Note Progress Note: Vascular Surgery left femoral vein edgar placed. Guide wire removed. all ports flushed. can use for HD Kayode Benitez DO
[2018-11-01 19:55] LABS: BLOOD UREA NITROGEN 33 mg/dL (7-18); GLUCOSE,RANDOM 229 mg/dL (74-106)
[2018-11-01 19:56] LABS: ANION GAP 13 MMOL/L (8-16); CHLORIDE 103 mmol/L (98-107); CO2 16 mmol/L (21-32); CREATININE 3.3 mg/dL (0.55-1.3); MAGNESIUM 2.2 mg/dL (1.8-2.4); PHOSPHOROUS 5.2 mg/dL (2.5-4.9); SODIUM 132 mmol/L (136-145)
[2018-11-01 20:00] LABS: POTASSIUM 7.5 mmol/L (3.5-5.1)
[2018-11-01] MEDS ORDERED: PATIENT'S OWN MEDICATION (NON-FORMULARY) (Simvastatin [Simvastatin] 10 MG) PO SCH (22:00)
[2018-11-01] MEDS: CHLORHEXIDINE GLUCONATE 4% CLEANSER FOR DECOLONIZATION TP SCH (22:12)
[2018-11-01] MEDS: ATORVASTATIN CA 10 MG TABLET (FP) PO SCH (22:12)
[2018-11-02 00:30] LABS: ANION GAP 8 MMOL/L (8-16); BLOOD UREA NITROGEN 11 mg/dL (7-18); CALCIUM 8.1 mg/dL (8.5-10.1); CHLORIDE 102 mmol/L (98-107); CO2 30 mmol/L (21-32); CREATININE 1.2 mg/dL (0.55-1.3); GLUCOSE,RANDOM 175 mg/dL (74-106); POTASSIUM 3.5 mmol/L (3.5-5.1); SODIUM 139 mmol/L (136-145)
--- NOTE | 2018-11-02 00:32 | PN ---
Progress Note (short form) - Note Progress Note: Laboratory Tests 11/01/18 23:10 Sodium 139 Potassium 3.5 Chloride 102 Carbon Dioxide 30 Anion Gap 8 BUN 11 Creatinine 1.2 post HD labs reviewed, potassium improved. pulse is improved.
[2018-11-02 01:14] LABS: MAGNESIUM 1.4 mg/dL (1.8-2.4); PHOSPHOROUS 2.5 mg/dL (2.5-4.9)
[2018-11-02] MEDS: MUPIROCIN 2% TOPICAL OINTMENT FOR DECOLONIZATION NS SCH ×3 (02:10→22:36)
[2018-11-02] MEDS: MAGNESIUM OXIDE 400 MG TABLET (FP) PO ONE ×2 (03:48→03:49)
[2018-11-02] MEDS: SODIUM BICARBONATE 8.4% - 150 MEQ in DEXTROSE 5%-WATER - 1,000 ML IV SCH (04:49)
[2018-11-02] MEDS: LEVOTHYROXINE NA 50 MCG TABLET (FP) PO SCH (06:03)
[2018-11-02] MEDS: INSULIN (NOVOLOG) ASPART 100 UNITS/ML 10ML VIAL SQ SCH ×4 (06:04→22:36)
[2018-11-02 06:48] LABS: HEMATOCRIT 30.3 % (32.4-45.2); HEMOGLOBIN 10.4 GM/dL (10.7-15.3); MCH 32.3 pg (25.7-33.7); MCHC 34.5 g/dl (32.0-36.0); MEAN CELL VOLUME 93.8 fl (80-96); MEAN PLT VOLUME 10.2 fl (7.5-11.1); PLATELET COUNT 150 K/MM3 (134-434); RBC 3.23 M/mm3 (3.60-5.2); WHITE BLOOD COUNT 6.7 K/mm3 (4.0-10.0)
[2018-11-02 07:14] LABS: ALBUMIN 3.3 g/dl (3.4-5.0); ALK PHOS 62 U/L (45-117); ANION GAP 6 MMOL/L (8-16); BILIRUBIN,TOTAL 0.8 mg/dL (0.2-1); BLOOD UREA NITROGEN 17 mg/dL (7-18); CALCIUM 8.5 mg/dL (8.5-10.1); CHLORIDE 102 mmol/L (98-107); CO2 29 mmol/L (21-32); CREATININE 1.9 mg/dL (0.55-1.3); GLUCOSE,RANDOM 230 mg/dL (74-106); MAGNESIUM 1.7 mg/dL (1.8-2.4); PHOSPHOROUS 4.6 mg/dL (2.5-4.9); POTASSIUM 4.4 mmol/L (3.5-5.1); SGOT/AST 41 U/L (15-37); SGPT/ALT 49 U/L (13-61); SODIUM 137 mmol/L (136-145); TOT PROT 6.9 g/dl (6.4-8.2)
[2018-11-02] MEDS ORDERED: MAGNESIUM SULF 50% (8.12 MEQ/2 ML-1 GM VIAL) IVPB ONE (07:39)
[2018-11-02] MEDS ORDERED: SODIUM CHLORIDE 1,000 ML IV SCH ×2 (08:45→11:30)
--- NOTE | 2018-11-02 10:39 | PN ---
Progress Note (short form) - Note Progress Note: s: feels better today. no chest pain, palps, dizziness, dyspnea Current Medications Atorvastatin Calcium (Lipitor -) 10 mg PO HS [facility] Last Admin: 11/01/18 22:12 Dose: 10 mg Chlorhexidine Gluconate (Hibiclens For Decolonization -) 1 applic TP HS [facility] Last Admin: 11/01/18 22:12 Dose: 1 applic Sodium Chloride (Normal Saline -) 250 mls @ 3,000 mls/hr IV PRN PRN PRN Reason: Hypotension during Dialysis Stop: 11/02/18 19:02 Sodium Chloride (Normal Saline -) 1,000 mls @ 100 mls/hr IV ASDIR [facility] Last Admin: 11/02/18 09:43 Dose: 100 mls/hr Insulin Aspart (Novolog Vial) 0 units SQ ACHS [facility]; Protocol Last Admin: 11/02/18 06:04 Dose: 4 units Levothyroxine Sodium (Synthroid -) 50 mcg PO DAILY@0700 [facility] Last Admin: 11/02/18 06:03 Dose: 50 mcg Mupirocin (Bactroban Ointment (For Decolonization) -) 1 applic NS BID [facility] Stop: 11/06/18 21:59 Last Admin: 11/02/18 09:44 Dose: 1 applic Vital Signs Period Temp Pulse Resp BP Sys/Cordova Pulse Ox Last 24 Hr 97.6 F-98.4 F 47-91 16-32 91-129/38-96 91-99 nad no jvd rrr s1s2 no mrg cta bl nl eff aao3 no le e/c/c abd nt nd pos bs no jaundice diaphoresis pos dp pt no carotid bruits ecgs reviewed: junctional rhythm with no ischemic changes, hr 46, nl qtc. Repeat ecg with sr and competing junctional rhythm, no ischemic findings, nl qtc tele: sinus rhythm 70s-80s cxr: clear lungs echo 10/2018: nl lv/rv, no sig valve path mibi 10/2018: nl mpi est cct 35 mins a/p: 73 f hx htn, hld, dm, hypothyroid, here with syncope. syncope, bradycardia, hypotension: -syncope seems to be vagal episode from straining for BM and abd pain -she also has junctional bradycardia likely 2/2 to k in 7's. HR improved with correction of hyperkalemia -monitor in icu on tele joyce, hyperkalemia: -recent preop labs unremarkable but now presenting with joyce and hyperkalemia, improved -ivfs -renal consulted n/v, abd pain: -consider GI eval htn: -hold home meds for now given hypotension hypothyroid -on synthroid hld: -cont statin
[2018-11-02 10:53] LABS: EPI CELLS >36 /HPF (0-5/HPF); PH,URINE >= 9.0 (5.0-8.0); URINE APPEARANCE CLOUDY; URINE BACTERIA 6.8 /hpf (NEGATIVE); URINE BILIRUBIN NEGATIVE (NEGATIVE); URINE CASTS 154 /lpf (0-8); URINE COLOR YELLOW; URINE GLUCOSE (UA) NEGATIVE (NEGATIVE); URINE KETONE NEGATIVE (NEGATIVE); URINE LEUK ESTERASE 2+ (NEGATIVE); URINE NITRITE NEGATIVE (NEGATIVE); URINE PROTEIN NEGATIVE (NEGATIVE); URINE RBC 5 /hpf (0-4); URINE UROBILINOGEN 0.2 mg/dL (0.2-1.0); URINE WBC 21 /hpf (0-5)
--- NOTE | 2018-11-02 12:07 | PN ---
Physical Exam: SUBJECTIVE: Patient seen and examined, without complaint this morning. K back to normal with hemodialysis last night. OBJECTIVE: Vital Signs Temperature 98 F 11/02/18 06:00 Pulse Rate 77 11/02/18 07:51 Respiratory Rate 22 H 11/02/18 07:51 Blood Pressure 106/67 11/02/18 07:51 O2 Sat by Pulse Oximetry (%) 91 L 11/02/18 07:51 GENERAL: Awake, alert, and fully oriented, in no acute distress. HEAD: Normal with no signs of trauma. EYES: Pupils equal, round and reactive to light, extraocular movements intact, LUNGS: Breath sounds equal, clear to auscultation bilaterally. No wheezes, and no crackles. No accessory muscle use. HEART: Regular rate and rhythm, normal S1 and S2 without murmur, rub or gallop. ABDOMEN: Soft,large reproducible ventral hernia, skin cool over hernia, not painful to deep palpation, minimal bowel sounds heard MUSCULOSKELETAL: Normal range of motion at all joints. LOWER EXTREMITIES: 2+ pulses, warm, well-perfused. No calf tenderness. No peripheral edema. PSYCHIATRIC: Cooperative. Good eye contact. Appropriate mood and affect. SKIN: Warm, dry, normal turgor, no rashes or lesions noted. CBCD WBC 6.7 K/mm3 (4.0-10.0) 11/02/18 05:30 RBC 3.23 M/mm3 (3.60-5.2) L 11/02/18 05:30 Hgb 10.4 GM/dL (10.7-15.3) L 11/02/18 05:30 Hct 30.3 % (32.4-45.2) L 11/02/18 05:30 MCV 93.8 fl (80-96) 11/02/18 05:30 MCHC 34.5 g/dl (32.0-36.0) 11/02/18 05:30 RDW 13.0 % (11.6-15.6) 11/02/18 05:30 Plt Count 150 K/MM3 (134-434) 11/02/18 05:30 MPV 10.2 fl (7.5-11.1) 11/02/18 05:30 CMP Sodium 137 mmol/L (136-145) 11/02/18 05:30 Potassium 4.4 mmol/L (3.5-5.1) 11/02/18 05:30 Chloride 102 mmol/L (98-107) 11/02/18 05:30 Carbon Dioxide 29 mmol/L (21-32) 11/02/18 05:30 Anion Gap 6 MMOL/L (8-16) L 11/02/18 05:30 BUN 17 mg/dL (7-18) 11/02/18 05:30 Creatinine 1.9 mg/dL (0.55-1.3) H 11/02/18 05:30 Creat Clearance w eGFR 25.84 (>60) 11/02/18 05:30 Calcium 8.5 mg/dL (8.5-10.1) 11/02/18 05:30 Total Bilirubin 0.8 mg/dL (0.2-1) 11/02/18 05:30 AST 41 U/L (15-37) H 11/02/18 05:30 ALT 49 U/L (13-61) 11/02/18 05:30 Alkaline Phosphatase 62 U/L (45-117) 11/02/18 05:30 Total Protein 6.9 g/dl (6.4-8.2) 11/02/18 05:30 Albumin 3.3 g/dl (3.4-5.0) L 11/02/18 05:30 Active Medications Atorvastatin Calcium (Lipitor -) 10 mg PO HS [facility] Last Admin: 11/01/18 22:12 Dose: 10 mg Chlorhexidine Gluconate (Hibiclens For Decolonization -) 1 applic TP HS [facility] Last Admin: 11/01/18 22:12 Dose: 1 applic Heparin Sodium (Porcine) (Heparin -) 5,000 unit SQ TID [facility] Sodium Chloride (Normal Saline -) 250 mls @ 3,000 mls/hr IV PRN PRN PRN Reason: Hypotension during Dialysis Stop: 11/02/18 19:02 Sodium Chloride (Normal Saline -) 1,000 mls @ 50 mls/hr IV ASDIR [facility] Stop: 11/03/18 11:26 Ceftriaxone Sodium 1 gm/ (Dextrose) 50 mls @ 100 mls/hr IVPB DAILY [facility]; Protocol Azithromycin (Zithromax 500mg Ivpb (Pre-Docked)) 500 mg in 250 mls @ 250 mls/ hr IVPB DAILY [facility] Insulin Aspart (Novolog Vial) 0 units SQ ACHS [facility]; Protocol Last Admin: 11/02/18 11:16 Dose: 6 units Levothyroxine Sodium (Synthroid -) 50 mcg PO DAILY@0700 [facility] Last Admin: 11/02/18 06:03 Dose: 50 mcg Mupirocin (Bactroban Ointment (For Decolonization) -) 1 applic NS BID [facility] Stop: 11/06/18 21:59 Last Admin: 11/02/18 09:44 Dose: 1 applic ASSESSMENT/PLAN: Patient is a 73 y/o female with a history of HTN, DM, and hypothyroidism who presented to [facility] for an elective hernia repair. Neuro - A& O x3 - stable Cardio - recent bradycardia and syncope, likely 2/2 to straining - junctional bradycardia 2/2 to high K - ekg shows junctional rhythm with bradycardia while having high K - repeat EKG shows normal sinus rhythm - followed by Cardio - BP improved with fluids - hx of hypertension hold for now Pulm - ABD CT: extensive bilateral lower lobe consolidation and associated small pleural effusions - f/u cultures - ceftriaxone and azithromycin for coverage Renal - hyperkalemia - K improved with dialysis, will folow with renal for next HD - followed by Dr. Houston, can be monitored on tele - f/u renal ultrasound, bladder ultrasound urine lytes - Shiley placement per Dr. Benitez, patient to go to dialysis tonight per Dr Dr. Houston - continue NS @ 50 - ABD CT: small bilateral renal cysts - 1900mL out over night GI - ABD CT: fat containing ventral hernia with mild inflammatory stranding within the hernia sac, additional fat containing umbilical hernia - stable for feeding ID - afebrile, unlikely infectious source - f/u blood cx, urine cx - emperic antibiotics, Ceftriaxone and Azithromycin Endo - hx hypothyroidism, continue levothyroxine 50 mcg - hx DM, monitor sugars can add SS if needed Heme - heparin TID for ppx FEN - NS @ 50 - low sodium, diabetic diet - monitor lytes closely Dispo: can be monitored on tele Visit type - Emergency Visit Emergency Visit: No - New Patient This patient is new to me today: No - Critical Care Critical Care patient: Yes Total Critical Care Time (in minutes): 40 Critical Care Statement: The care of this patient involved high complexity decision making to prevent further life threatening deterioration of the patient 's condition and/or to evaluate & treat vital organ system(s) failure or risk of failure.
--- NOTE | 2018-11-02 12:14 | PN ---
Teaching Attending Note Name of Resident: Sue Flores ATTENDING PHYSICIAN STATEMENT I saw and evaluated the patient. I reviewed the resident's note and discussed the case with the resident. I agree with the resident's findings and plan as documented. SUBJECTIVE: Pt seen and examined in the ICU. Emergently dialyzed overnight with improvement in K and now in sinus rhythm. Good urine output since this AM. CT A/P yesterday showing bibasilar consolidations. No fevers recorded. OBJECTIVE: Vital Signs Period Temp Pulse Resp BP Sys/[place] Pulse Ox Last 24 Hr 97.6 F-98.4 F 47-91 18-32 91-129/38-91 91-99 Intake & Output 10/30/18 10/31/18 11/01/18 11/02/18 23:59 23:59 23:59 23:59 Intake Total 1200 1258 Output Total 0 1900 Balance 1200 -642 Weight 62.959 kg 64.098 kg Gen: NAD at rest Heart: RRR Lung: bibasilar rales Abd: soft, nontender Ext: no edema CBC, BMP 11/02/18 05:30 11/02/18 05:30 Active Medications Atorvastatin Calcium (Lipitor -) 10 mg PO HS SU Last Admin: 11/01/18 22:12 Dose: 10 mg Chlorhexidine Gluconate (Hibiclens For Decolonization -) 1 applic TP HS SU Last Admin: 11/01/18 22:12 Dose: 1 applic Heparin Sodium (Porcine) (Heparin -) 5,000 unit SQ TID SU Sodium Chloride (Normal Saline -) 250 mls @ 3,000 mls/hr IV PRN PRN PRN Reason: Hypotension during Dialysis Stop: 11/02/18 19:02 Sodium Chloride (Normal Saline -) 1,000 mls @ 50 mls/hr IV ASDIR SU Stop: 11/03/18 11:26 Ceftriaxone Sodium 1 gm/ (Dextrose) 50 mls @ 100 mls/hr IVPB DAILY [facility]; Protocol Azithromycin (Zithromax 500mg Ivpb (Pre-Docked)) 500 mg in 250 mls @ 250 mls/ hr IVPB DAILY [facility] Insulin Aspart (Novolog Vial) 0 units SQ ACHS SU; Protocol Last Admin: 11/02/18 11:16 Dose: 6 units Levothyroxine Sodium (Synthroid -) 50 mcg PO DAILY@0700 SU Last Admin: 11/02/18 06:03 Dose: 50 mcg Mupirocin (Bactroban Ointment (For Decolonization) -) 1 applic NS BID [facility] Stop: 11/06/18 21:59 Last Admin: 11/02/18 09:44 Dose: 1 applic ASSESSMENT AND PLAN: Junctional Bradycardia Acute Kidney Injury requiring acute HD Hyperkalemia improving r/o Pneumonia HTN DM Hyperlipidemia Hypothyroidism - IVF - monitor urine output, creatinine - HD per renal but maintaining good urine output - confirm sinus rhythm with 12 lead EKG - empiric antibiotics - f/u cultures - DVT prophylaxis - can monitor on telemetry -
[2018-11-02] MEDS: AZITHROMYCIN IVPB 500 MG/250 ML BAG IVPB SCH (12:30)
--- NOTE | 2018-11-02 12:50 | PN ---
Progress Note, Physician History of Present Illness: Pt seen and examined at bedside. She is awake and alert. She feels much better today. - Current Medication List Current Medications: Active Medications Atorvastatin Calcium (Lipitor -) 10 mg PO HS [facility] Last Admin: 11/01/18 22:12 Dose: 10 mg Chlorhexidine Gluconate (Hibiclens For Decolonization -) 1 applic TP HS [facility] Last Admin: 11/01/18 22:12 Dose: 1 applic Heparin Sodium (Porcine) (Heparin -) 5,000 unit SQ TID SU Sodium Chloride (Normal Saline -) 250 mls @ 3,000 mls/hr IV PRN PRN PRN Reason: Hypotension during Dialysis Stop: 11/02/18 19:02 Sodium Chloride (Normal Saline -) 1,000 mls @ 50 mls/hr IV ASDIR [facility] Stop: 11/03/18 11:26 Last Admin: 11/02/18 12:00 Dose: 50 mls/hr Ceftriaxone Sodium 1 gm/ (Dextrose) 50 mls @ 100 mls/hr IVPB DAILY [facility]; Protocol Azithromycin (Zithromax 500mg Ivpb (Pre-Docked)) 500 mg in 250 mls @ 250 mls/ hr IVPB DAILY [facility] Last Admin: 11/02/18 12:30 Dose: 250 mls/hr Insulin Aspart (Novolog Vial) 0 units SQ ACHS [facility]; Protocol Last Admin: 11/02/18 11:16 Dose: 6 units Levothyroxine Sodium (Synthroid -) 50 mcg PO DAILY@0700 [facility] Last Admin: 11/02/18 06:03 Dose: 50 mcg Mupirocin (Bactroban Ointment (For Decolonization) -) 1 applic NS BID [facility] Stop: 11/06/18 21:59 Last Admin: 11/02/18 09:44 Dose: 1 applic - Objective Vital Signs: Vital Signs Temperature 98 F 11/02/18 06:00 Pulse Rate 77 11/02/18 07:51 Respiratory Rate 22 H 11/02/18 07:51 Blood Pressure 106/67 11/02/18 07:51 O2 Sat by Pulse Oximetry (%) 91 L 11/02/18 07:51 Constitutional: Yes: Calm Eyes: Yes: Conjunctiva Clear HENT: Yes: Atraumatic Neck: Yes: Supple Cardiovascular: Yes: S1, S2 Respiratory: Yes: CTA Bilaterally, On Nasal O2 Gastrointestinal: Yes: Soft Genitourinary: Yes: Leo Present Musculoskeletal: Yes: WNL Edema: No Neurological: Yes: Oriented Psychiatric: Yes: Oriented Labs: CBC, BMP 11/02/18 05:30 11/02/18 05:30 INR, PTT INR 1.14 (0.83-1.09) H 11/01/18 16:30 Assessment/Plan Current Medications Generic Name Dose Route Start Last Admin Trade Name Freq PRN Reason Stop Dose Admin Atorvastatin Calcium 10 mg 11/01/18 22:00 11/01/18 22:12 Lipitor - PO 10 mg HS SU Administration Chlorhexidine Gluconate 1 applic 11/01/18 22:00 11/01/18 22:12 Hibiclens For Decolonization - TP 1 applic HS SU Administration Heparin Sodium (Porcine) 5,000 unit 11/02/18 14:00 Heparin - SQ TID SU Sodium Chloride 250 mls @ 3,000 mls/hr 11/01/18 19:02 Normal Saline - IV 11/02/18 19:02 PRN PRN Hypotension during Dialysis Sodium Chloride 1,000 mls @ 50 mls/hr 11/02/18 11:30 11/02/18 12:00 Normal Saline - IV 11/03/18 11:26 50 mls/hr ASDIR SU Administration Ceftriaxone Sodium 1 gm/ 50 mls @ 100 mls/hr 11/02/18 12:00 Dextrose IVPB DAILY SU Protocol Azithromycin 500 mg in 250 mls @ 250 mls/hr 11/02/18 11:30 11/02/18 12:30 Zithromax 500mg Ivpb (Pre-Docked) IVPB 250 mls/hr DAILY SU Administration Insulin Aspart 0 units 11/01/18 16:30 11/02/18 11:16 Novolog Vial SQ 6 units ACHS SU Administration Protocol Levothyroxine Sodium 50 mcg 11/02/18 07:00 11/02/18 06:03 Synthroid - PO 50 mcg DAILY@0700 SU Administration Mupirocin 1 applic 11/01/18 22:00 11/02/18 09:44 Bactroban Ointment (For Decolonization) - NS 11/06/18 21:59 1 applic BID SU Administration Laboratory Tests 04/30/19 04/30/19 05/01/19 20:20 20:20 05:30 Urine Protein Urine Blood SHANTA M-Sharad Pending [place] Screen c-ANCA Proteinase 3 (PR3) p-ANCA Atypical p-ANCA Myeloperoxidase Ab Double Strand DNA Ab Glomerular Base Memb Ab Hepatitis A Ab Total Pending Hep Bs Antigen Pending Hep Bs Antibody Pending Hep B Core Total Ab Pending Hep C Ab Diagnostic Pending 11/02/18 11/02/18 05:30 05:30 Urine Protein Negative Urine Blood 2+ H SHANTA M-Sharad [place] Screen Pending c-ANCA Pending Proteinase 3 (PR3) Pending p-ANCA Pending Atypical p-ANCA Pending Myeloperoxidase Ab Pending Double Strand DNA Ab Pending Glomerular Base Memb Ab Pending Hepatitis A Ab Total Hep Bs Antigen Hep Bs Antibody Hep B Core Total Ab Hep C Ab Diagnostic Impression 1. LOPEZ 2. hyperkalemia 3. metabolic acidosis 4. DM 5. hernia 6. hypothyroidism Plan - potassium improved - pt now in sinus - repeat labs in am - if potassium is stable tomorrow will d/c edgar - do not restart metformin or enalapril - decrease fluids - follow renal ultrasound - follow serologies - discussed with ICU deyvi - discussed with family
--- NOTE | 2018-11-02 12:58 | EKG ---
Test Reason : Blood Pressure : / mmHG Vent. Rate : 057 BPM Atrial Rate : 075 BPM P-R Int : 000 ms QRS Dur : 084 ms QT Int : 412 ms P-R-T Axes : 000 051 043 degrees QTc Int : 401 ms ATRIAL FIBRILLATION WITH SLOW VENTRICULAR RESPONSE WITH A COMPETING JUNCTIONAL PACEMAKER ABNORMAL ECG WHEN COMPARED WITH ECG OF 01-NOV-2018 11:58, NO SIGNIFICANT CHANGE WAS FOUND Confirmed by ARNOLD JIMÉNEZ, VIRGIL ([id number]) on 11/02/2018 12:57:55 PM Referred By: Confirmed By:VIRGIL BARRETT MD
[2018-11-02] MEDS ORDERED: SODIUM CHLORIDE 0.45% 1,000 ML IV SCH (13:00)
--- NOTE | 2018-11-02 13:00 | EKG ---
Test Reason : Blood Pressure : / mmHG Vent. Rate : 082 BPM Atrial Rate : 082 BPM P-R Int : 158 ms QRS Dur : 078 ms QT Int : 386 ms P-R-T Axes : 051 043 033 degrees QTc Int : 450 ms NORMAL SINUS RHYTHM NORMAL ECG WHEN COMPARED WITH ECG OF 01-NOV-2018 17:46, SINUS RHYTHM HAS REPLACED ATRIAL FIBRILLATION NONSPECIFIC T WAVE ABNORMALITY, WORSE IN INFERIOR LEADS T WAVE AMPLITUDE HAS DECREASED IN LATERAL LEADS Confirmed by VIRGIL BARRETT MD ([id number]) on 11/02/2018 1:00:18 PM Referred By: Lorna GONZALEZ Confirmed By:VIRGIL BARRETT MD
[2018-11-02] MEDS ORDERED: cefTRIAXone SODIUM 1 GM VIAL ONE (13:06)
[2018-11-02] MEDS ORDERED: DEXTROSE 5%-WATER - 50 ML IVPB ONE (13:06)
[2018-11-02] MEDS: HEPARIN NA (PORCINE) 5,000 UNITS/ML 1ML VIAL SQ SCH ×2 (13:23→22:36)
[2018-11-02] MEDS: CEFTRIAXONE 1 GM in DEXTROSE 5%-WATER - 50 ML IVPB SCH (13:25)
[2018-11-02] MEDS ORDERED: FUROSEMIDE 40 MG/4 ML INJECTABLE VIAL IVPUSH ONE (17:43)
--- NOTE | 2018-11-02 19:02 | PN ---
Physical Exam: SUBJECTIVE: Patient seen and examined 24HR EVENTS: -acutely hyperkalemic, s/p emergent HD -pt offers no complaints this morning OBJECTIVE: Vital Signs Period Temp Pulse Resp BP Sys/[place] Pulse Ox Last 24 Hr 98 F-99 F 47-91 18-28 93-144/39-79 91-99 GENERAL: The patient is awake, alert, and fully oriented elderly F, in no acute distress. HEAD: Normal with no signs of trauma. EYES: PERRL, sclera anicteric, conjunctiva clear. No ptosis. ENT: nares patent, oropharynx clear without exudates, moist mucous membranes. NECK: Trachea midline, full range of motion, supple. LUNGS: Breath sounds equal but decreased at the bases, no accessory muscle use. HEART: Regular rate and rhythm, S1, S2 without murmur, rub or gallop. ABDOMEN: Soft, nontender, nondistended, normoactive bowel sounds, no guarding, no rebound, EXTREMITIES: 2+ pulses, warm, well-perfused, no edema. PSYCH: Normal mood, normal affect. SKIN: Warm, dry, normal turgor, no rashes or lesions noted NEURO: alert and oriented. Laboratory Results - last 24 hr 11/01/18 11/01/18 11/01/18 16:30 22:32 23:10 WBC RBC Hgb Hct MCV MCH MCHC RDW Plt Count MPV Sodium 132 L Potassium 7.5 H* Chloride 103 Carbon Dioxide 16 L Anion Gap 13 BUN 33 H Creatinine 3.3 H Creat Clearance w eGFR 13.67 POC Glucometer 194 Random Glucose 229 H Lactic Acid 2.1 H Calcium 9.0 Phosphorus 5.2 H Magnesium 2.2 Total Bilirubin AST ALT Alkaline Phosphatase Total Protein Albumin Urine Color Urine Appearance Urine pH Ur Specific [place] Urine Protein Urine Glucose (UA) Urine Ketones Urine Blood Urine Nitrite Urine Bilirubin Urine Urobilinogen Ur Leukocyte Esterase Urine WBC (Auto) Urine RBC (Auto) Urine Casts (Auto) U Pathogenic Cast Auto U Epithel Cells (Auto) U Sm Round Cell (Auto) Urine Bacteria (Auto) U Random Total Protein Ur Random Sodium Ur Random Potassium Ur Random Chloride 11/01/18 11/01/18 11/02/18 23:10 23:10 05:30 WBC 6.7 RBC 3.23 L Hgb 10.4 L Hct 30.3 L MCV 93.8 MCH 32.3 MCHC 34.5 RDW 13.0 Plt Count 150 MPV 10.2 Sodium 139 Potassium 3.5 Chloride 102 Carbon Dioxide 30 Anion Gap 8 BUN 11 Creatinine 1.2 Creat Clearance w eGFR 43.91 POC Glucometer Random Glucose 175 H Lactic Acid Calcium 8.1 L Phosphorus Cancelled 2.5 Magnesium Cancelled 1.4 L Total Bilirubin AST ALT Alkaline Phosphatase Total Protein Albumin Urine Color Urine Appearance Urine pH Ur Specific [place] Urine Protein Urine Glucose (UA) Urine Ketones Urine Blood Urine Nitrite Urine Bilirubin Urine Urobilinogen Ur Leukocyte Esterase Urine WBC (Auto) Urine RBC (Auto) Urine Casts (Auto) U Pathogenic Cast Auto U Epithel Cells (Auto) U Sm Round Cell (Auto) Urine Bacteria (Auto) U Random Total Protein Ur Random Sodium Ur Random Potassium Ur Random Chloride 11/02/18 11/02/18 11/02/18 05:30 05:30 05:30 WBC RBC Hgb Hct MCV MCH MCHC RDW Plt Count MPV Sodium 137 Potassium 4.4 Chloride 102 Carbon Dioxide 29 Anion Gap 6 L BUN 17 Creatinine 1.9 H Creat Clearance w eGFR 25.84 POC Glucometer Random Glucose 230 H Lactic Acid Calcium 8.5 Phosphorus 4.6 Magnesium 1.7 L Total Bilirubin 0.8 AST 41 H ALT 49 Alkaline Phosphatase 62 Total Protein 6.9 Albumin 3.3 L Urine Color Yellow Urine Appearance Cloudy Urine pH >= 9.0 H Ur Specific [place] 1.007 L Urine Protein Negative Urine Glucose (UA) Negative Urine Ketones Negative Urine Blood 2+ H Urine Nitrite Negative Urine Bilirubin Negative Urine Urobilinogen 0.2 Ur Leukocyte Esterase 2+ H Urine WBC (Auto) 21 Urine RBC (Auto) 5 Urine Casts (Auto) 154 U Pathogenic Cast Auto None seen U Epithel Cells (Auto) >36 U Sm Round Cell (Auto) None seen Urine Bacteria (Auto) 6.8 U Random Total Protein Ur Random Sodium 132 Ur Random Potassium 10.3 L Ur Random Chloride 116 11/02/18 11/02/18 11/02/18 05:50 10:25 11:11 WBC RBC Hgb Hct MCV MCH MCHC RDW Plt Count MPV Sodium Potassium Chloride Carbon Dioxide Anion Gap BUN Creatinine Creat Clearance w eGFR POC Glucometer 219 295 Random Glucose Lactic Acid Calcium Phosphorus Magnesium Total Bilirubin AST ALT Alkaline Phosphatase Total Protein Albumin Urine Color Urine Appearance Urine pH Ur Specific [place] Urine Protein Urine Glucose (UA) Urine Ketones Urine Blood Urine Nitrite Urine Bilirubin Urine Urobilinogen Ur Leukocyte Esterase Urine WBC (Auto) Urine RBC (Auto) Urine Casts (Auto) U Pathogenic Cast Auto U Epithel Cells (Auto) U Sm Round Cell (Auto) Urine Bacteria (Auto) U Random Total Protein 21.0 H Ur Random Sodium Ur Random Potassium Ur Random Chloride 11/02/18 16:37 WBC RBC Hgb Hct MCV MCH MCHC RDW Plt Count MPV Sodium Potassium Chloride Carbon Dioxide Anion Gap BUN Creatinine Creat Clearance w eGFR POC Glucometer 356 Random Glucose Lactic Acid Calcium Phosphorus Magnesium Total Bilirubin AST ALT Alkaline Phosphatase Total Protein Albumin Urine Color Urine Appearance Urine pH Ur Specific [place] Urine Protein Urine Glucose (UA) Urine Ketones Urine Blood Urine Nitrite Urine Bilirubin Urine Urobilinogen Ur Leukocyte Esterase Urine WBC (Auto) Urine RBC (Auto) Urine Casts (Auto) U Pathogenic Cast Auto U Epithel Cells (Auto) U Sm Round Cell (Auto) Urine Bacteria (Auto) U Random Total Protein Ur Random Sodium Ur Random Potassium Ur Random Chloride Active Medications Generic Name Dose Route Start Last Admin Trade Name Freq PRN Reason Stop Dose Admin Atorvastatin Calcium 10 mg 11/01/18 22:00 11/01/18 22:12 Lipitor - PO 10 mg HS SU Administration Chlorhexidine Gluconate 1 applic 11/01/18 22:00 11/01/18 22:12 Hibiclens For Decolonization - TP 1 applic HS SU Administration Heparin Sodium (Porcine) 5,000 unit 11/02/18 14:00 11/02/18 13:23 Heparin - SQ 5,000 unit TID SU Administration Sodium Chloride 250 mls @ 3,000 mls/hr 11/01/18 19:02 Normal Saline - IV 11/02/18 19:02 PRN PRN Hypotension during Dialysis Ceftriaxone Sodium 1 gm/ 50 mls @ 100 mls/hr 11/02/18 12:00 11/02/18 13:25 Dextrose IVPB 100 mls/hr DAILY SU Administration Protocol Azithromycin 500 mg in 250 mls @ 250 mls/hr 11/02/18 11:30 11/02/18 12:30 Zithromax 500mg Ivpb (Pre-Docked) IVPB 250 mls/hr DAILY SU Administration Insulin Aspart 0 units 11/01/18 16:30 11/02/18 16:39 Novolog Vial SQ 10 units ACHS SU Administration Protocol Levothyroxine Sodium 50 mcg 11/02/18 07:00 11/02/18 06:03 Synthroid - PO 50 mcg DAILY@0700 SU Administration Mupirocin 1 applic 11/01/18 22:00 11/02/18 09:44 Bactroban Ointment (For Decolonization) - NS 11/06/18 21:59 1 applic BID SU Administration ASSESSMENT/PLAN: 73 year-old female with a PMH significant for HTN, HLD, and Type II IDDM. Patient was scheduled for a ventral hernia repair today but it was cancelled due to ECG: junctional rhythm @46bpm, acute Hypotension and metabolic disarray. Patient transferred from [facility] to [facility] for emergeny TDC placement for HD. She is now s/p HD with resolution of hyperkalemia and downtrending serum Cr. CV: Hypertension, Hyperlipidemia lipitor 10mg qhs ACEi d/brian as per renal recs RENAL: LOPEZ with hyperkalemia -s/p HD -trend cr and electrolytes -pt has satisfactory urine outptut -renal following Endo: Type II IDDM -Fingerstick AC/HS -insulin SS -d/c metformin Pulm: b/l pleural effusions -cont azith and ceftriaxone -trend temp and WBC curve -f/u blood cx, urine cx ENDO: hypothyroidism -synthroid 50mcg daily PPX: -heparin SC TID -OOB to chair DISPO: pt can most likely be stepped out of ICU tomorrow 11/03 Code Status: Full Problem List - Problems (1) LOPEZ (acute kidney injury) Code(s): N17.9 - ACUTE KIDNEY FAILURE, UNSPECIFIED (2) Bradycardia Code(s): R00.1 - BRADYCARDIA, UNSPECIFIED (3) Hyperkalemia Code(s): E87.5 - HYPERKALEMIA (4) Diabetes mellitus Code(s): E11.9 - TYPE 2 DIABETES MELLITUS WITHOUT COMPLICATIONS Qualifiers: Diabetes mellitus type: type 2 Qualified Code(s): E11.9 - Type 2 diabetes mellitus without complications (5) HTN (hypertension) Code(s): I10 - ESSENTIAL (PRIMARY) HYPERTENSION Qualifiers: Hypertension type: essential hypertension Qualified Code(s): I10 - Essential (primary) hypertension (6) Hypercholesteremia Code(s): E78.0 - PURE HYPERCHOLESTEROLEMIA * DO NOT USE * Visit type - Emergency Visit Emergency Visit: Yes ED Registration Date: 11/01/18 Care time: The patient presented to the Emergency Department on the above date and was hospitalized for further evaluation of their emergent condition. - New Patient This patient is new to me today: Yes Date on this admission: 11/02/18 - Critical Care Critical Care patient: Yes Total Critical Care Time (in minutes): 40 Critical Care Statement: The care of this patient involved high complexity decision making to prevent further life threatening deterioration of the patient 's condition and/or to evaluate & treat vital organ system(s) failure or risk of failure. - Discharge Referral Referred to [facility] No
[2018-11-02 21:45] LABS: CREATININE, URINE RANDOM 23.3 mg/dL
[2018-11-02] MEDS: ATORVASTATIN CA 10 MG TABLET (FP) PO SCH (22:36)
[2018-11-02] MEDS: CHLORHEXIDINE GLUCONATE 4% CLEANSER FOR DECOLONIZATION TP SCH (22:36)
[2018-11-03] MEDS: INSULIN (NOVOLOG) ASPART 100 UNITS/ML 10ML VIAL SQ SCH ×4 (06:30→22:24)
[2018-11-03] MEDS: HEPARIN NA (PORCINE) 5,000 UNITS/ML 1ML VIAL SQ SCH ×3 (06:30→22:07)
[2018-11-03] MEDS: LEVOTHYROXINE NA 50 MCG TABLET (FP) PO SCH (06:30)
[2018-11-03 06:40] LABS: HEMATOCRIT 29.3 % (32.4-45.2); MCH 31.8 pg (25.7-33.7); MCHC 34.1 g/dl (32.0-36.0); MEAN PLT VOLUME 10.7 fl (7.5-11.1); PLATELET COUNT 129 K/MM3 (134-434); RBC 3.15 M/mm3 (3.60-5.2); RDW 12.7 % (11.6-15.6); WHITE BLOOD COUNT 6.6 K/mm3 (4.0-10.0)
[2018-11-03 07:07] LABS: ALBUMIN 3.3 g/dl (3.4-5.0); ALK PHOS 61 U/L (45-117); ANION GAP 8 MMOL/L (8-16); BILIRUBIN,TOTAL 0.6 mg/dL (0.2-1); BLOOD UREA NITROGEN 25 mg/dL (7-18); CALCIUM 8.1 mg/dL (8.5-10.1); CHLORIDE 99 mmol/L (98-107); CO2 26 mmol/L (21-32); CREATININE 1.4 mg/dL (0.55-1.3); GLUCOSE,RANDOM 250 mg/dL (74-106); MAGNESIUM 1.8 mg/dL (1.8-2.4); PHOSPHOROUS 3.2 mg/dL (2.5-4.9); POTASSIUM 4.2 mmol/L (3.5-5.1); SGOT/AST 35 U/L (15-37); SGPT/ALT 39 U/L (13-61); SODIUM 133 mmol/L (136-145)
--- NOTE | 2018-11-03 09:48 | PN ---
Physical Exam: SUBJECTIVE: Patient seen and examined at the bedside. in no acute distress. feels well. family not at bedside. OBJECTIVE: Vital Signs Period Temp Pulse Resp BP Sys/[place] Pulse Ox Last 24 Hr 98.4 F-99.9 F 65-90 18-29 93-144/47-66 88 GENERAL: The patient is awake, alert, and fully oriented elderly F, in no acute distress. HEAD: Normal with no signs of trauma. EYES: PERRL, sclera anicteric, conjunctiva clear. No ptosis. ENT: nares patent, oropharynx clear without exudates, moist mucous membranes. NECK: Trachea midline, full range of motion, supple. LUNGS: Breath sounds equal but decreased at the bases, no accessory muscle use. HEART: Regular rate and rhythm, S1, S2 without murmur, rub or gallop. ABDOMEN: Soft, nontender, nondistended, normoactive bowel sounds, no guarding, no rebound, EXTREMITIES: 2+ pulses, warm, well-perfused, no edema. PSYCH: Normal mood, normal affect. SKIN: Warm, dry, normal turgor, no rashes or lesions noted NEURO: alert and oriented. Laboratory Results - last 24 hr 11/01/18 11/01/18 11/02/18 20:20 20:35 05:30 WBC RBC Hgb Hct MCV MCH MCHC RDW Plt Count MPV Sodium Potassium Chloride Carbon Dioxide Anion Gap BUN Creatinine Creat Clearance w eGFR POC Glucometer Random Glucose Calcium Phosphorus Magnesium Total Bilirubin AST ALT Alkaline Phosphatase Total Protein Albumin Free T3 2.5 Urine Color Urine Appearance Urine pH Ur Specific [place] Urine Protein Urine Glucose (UA) Urine Ketones Urine Blood Urine Nitrite Urine Bilirubin Urine Urobilinogen Ur Leukocyte Esterase Urine WBC (Auto) Urine RBC (Auto) Urine Casts (Auto) U Pathogenic Cast Auto U Epithel Cells (Auto) U Sm Round Cell (Auto) Urine Bacteria (Auto) Ur Random Creatinine U Random Total Protein Ur Random Sodium 132 Ur Random Potassium 10.3 L Ur Random Chloride 116 Hep C Ab Diagnostic <0.1 11/02/18 11/02/18 11/02/18 05:30 10:25 11:11 WBC RBC Hgb Hct MCV MCH MCHC RDW Plt Count MPV Sodium Potassium Chloride Carbon Dioxide Anion Gap BUN Creatinine Creat Clearance w eGFR POC Glucometer 295 Random Glucose Calcium Phosphorus Magnesium Total Bilirubin AST ALT Alkaline Phosphatase Total Protein Albumin Free T3 Urine Color Yellow Urine Appearance Cloudy Urine pH >= 9.0 H Ur Specific [place] 1.007 L Urine Protein Negative Urine Glucose (UA) Negative Urine Ketones Negative Urine Blood 2+ H Urine Nitrite Negative Urine Bilirubin Negative Urine Urobilinogen 0.2 Ur Leukocyte Esterase 2+ H Urine WBC (Auto) 21 Urine RBC (Auto) 5 Urine Casts (Auto) 154 U Pathogenic Cast Auto None seen U Epithel Cells (Auto) >36 U Sm Round Cell (Auto) None seen Urine Bacteria (Auto) 6.8 Ur Random Creatinine 23.3 U Random Total Protein 21.0 H Ur Random Sodium 132 Ur Random Potassium Ur Random Chloride Hep C Ab Diagnostic 11/02/18 11/02/18 11/03/18 16:37 22:31 05:30 WBC 6.6 RBC 3.15 L Hgb 10.0 L Hct 29.3 L MCV 93.0 MCH 31.8 MCHC 34.1 RDW 12.7 Plt Count 129 L MPV 10.7 Sodium Potassium Chloride Carbon Dioxide Anion Gap BUN Creatinine Creat Clearance w eGFR POC Glucometer 356 307 Random Glucose Calcium Phosphorus Magnesium Total Bilirubin AST ALT Alkaline Phosphatase Total Protein Albumin Free T3 Urine Color Urine Appearance Urine pH Ur Specific [place] Urine Protein Urine Glucose (UA) Urine Ketones Urine Blood Urine Nitrite Urine Bilirubin Urine Urobilinogen Ur Leukocyte Esterase Urine WBC (Auto) Urine RBC (Auto) Urine Casts (Auto) U Pathogenic Cast Auto U Epithel Cells (Auto) U Sm Round Cell (Auto) Urine Bacteria (Auto) Ur Random Creatinine U Random Total Protein Ur Random Sodium Ur Random Potassium Ur Random Chloride Hep C Ab Diagnostic 11/03/18 11/03/18 05:30 05:52 WBC RBC Hgb Hct MCV MCH MCHC RDW Plt Count MPV Sodium 133 L Potassium 4.2 Chloride 99 Carbon Dioxide 26 Anion Gap 8 BUN 25 H Creatinine 1.4 H Creat Clearance w eGFR 36.76 POC Glucometer 249 Random Glucose 250 H Calcium 8.1 L Phosphorus 3.2 Magnesium 1.8 Total Bilirubin 0.6 AST 35 ALT 39 Alkaline Phosphatase 61 Total Protein 7.0 Albumin 3.3 L Free T3 Urine Color Urine Appearance Urine pH Ur Specific [place] Urine Protein Urine Glucose (UA) Urine Ketones Urine Blood Urine Nitrite Urine Bilirubin Urine Urobilinogen Ur Leukocyte Esterase Urine WBC (Auto) Urine RBC (Auto) Urine Casts (Auto) U Pathogenic Cast Auto U Epithel Cells (Auto) U Sm Round Cell (Auto) Urine Bacteria (Auto) Ur Random Creatinine U Random Total Protein Ur Random Sodium Ur Random Potassium Ur Random Chloride Hep C Ab Diagnostic Active Medications Generic Name Dose Route Start Last Admin Trade Name Freq PRN Reason Stop Dose Admin Atorvastatin Calcium 10 mg 11/01/18 22:00 11/02/18 22:36 Lipitor - PO 10 mg HS SU Administration Chlorhexidine Gluconate 1 applic 11/01/18 22:00 11/02/18 22:36 Hibiclens For Decolonization - TP 1 applic HS SU Administration Heparin Sodium (Porcine) 5,000 unit 11/02/18 14:00 11/03/18 06:30 Heparin - SQ 5,000 unit TID SU Administration Sodium Chloride 250 mls @ 3,000 mls/hr 11/01/18 19:02 Normal Saline - IV 11/02/18 19:02 PRN PRN Hypotension during Dialysis Ceftriaxone Sodium 1 gm/ 50 mls @ 100 mls/hr 11/02/18 12:00 11/02/18 13:25 Dextrose IVPB 100 mls/hr DAILY SU Administration Protocol Azithromycin 500 mg in 250 mls @ 250 mls/hr 11/02/18 11:30 11/02/18 12:30 Zithromax 500mg Ivpb (Pre-Docked) IVPB 250 mls/hr DAILY SU Administration Insulin Aspart 0 units 11/01/18 16:30 11/03/18 06:30 Novolog Vial SQ 4 units ACHS SU Administration Protocol Levothyroxine Sodium 50 mcg 11/02/18 07:00 11/03/18 06:30 Synthroid - PO 50 mcg DAILY@0700 SU Administration Mupirocin 1 applic 11/01/18 22:00 11/02/18 22:36 Bactroban Ointment (For Decolonization) - NS 11/06/18 21:59 1 applic BID SU Administration ASSESSMENT/PLAN: Patient is a 73 year old female with past medical history of HTN, DM, hypothyroidism, HLD, ventral hernia presenting to ED for near-syncope. Patient scheduled for a ventral hernia repair but has been having severe abdominal pain and a near syncopal episode at home. patient had a pre op workup up a few days prior and reported to be within normal limits. ECG: junctional rhythm @46bpm, acute hypotension and metabolic disarray. Patient transferred from [facility] to [facility] for emergeny TDC placement for HD. She is now s/p HD with resolution of hyperkalemia and downtrending serum Cr. CV: Hypertension. oliverio inhibitor d/c secondary to kidney function. She was also slightly hypotensive on admission. Hyperlipidemia, on lipitor 10mg RenalL: LOPEZ with hyperkalemia s/p HD. continue to trend cr and electrolytes pt has good urine outptut renal following, per renal, shiley can be removed. Endo: Diabetes fingersticks ac/hs. insulin SS Pulm: B/L pleural effusions continue Azithromycin and Ceftriaxone. Monitor labs. vitals. tolerating room air. Pulm following Endo hypothyroidism synthroid 50mcg daily fen tolerating po monitor electrolytes prophy: heparin SC TID OOB to chair DISPO: pt can most likely be stepped out of ICU Visit type - Emergency Visit Emergency Visit: Yes ED Registration Date: 11/01/18 Care time: The patient presented to the Emergency Department on the above date and was hospitalized for further evaluation of their emergent condition. - New Patient This patient is new to me today: No - Critical Care Critical Care patient: No - Discharge Referral Referred to [facility] Med P.C.: No
[2018-11-03] MEDS ORDERED: cefTRIAXone SODIUM 1 GM VIAL ONE (09:53)
[2018-11-03] MEDS ORDERED: DEXTROSE 5%-WATER - 50 ML IVPB ONE (09:54)
[2018-11-03] MEDS: CEFTRIAXONE 1 GM in DEXTROSE 5%-WATER - 50 ML IVPB SCH (10:07)
[2018-11-03] MEDS: AZITHROMYCIN IVPB 500 MG/250 ML BAG IVPB SCH (10:11)
[2018-11-03] MEDS: MUPIROCIN 2% TOPICAL OINTMENT FOR DECOLONIZATION NS SCH (10:12)
--- NOTE | 2018-11-03 11:35 | PN ---
Progress Note, Physician History of Present Illness: seen and examined at bedside. O2 sat ranged from low 80s to low 90s, higher with bed elevation. was put on ventimask briefly overnight and changed to NC 6L. no other acute event overnight. - Current Medication List Current Medications: Active Medications Atorvastatin Calcium (Lipitor -) 10 mg PO HS [facility] Last Admin: 11/02/18 22:36 Dose: 10 mg Chlorhexidine Gluconate (Hibiclens For Decolonization -) 1 applic TP HS [facility] Last Admin: 11/02/18 22:36 Dose: 1 applic Heparin Sodium (Porcine) (Heparin -) 5,000 unit SQ TID [facility] Last Admin: 11/03/18 06:30 Dose: 5,000 unit Sodium Chloride (Normal Saline -) 250 mls @ 3,000 mls/hr IV PRN PRN PRN Reason: Hypotension during Dialysis Stop: 11/02/18 19:02 Ceftriaxone Sodium 1 gm/ (Dextrose) 50 mls @ 100 mls/hr IVPB DAILY [facility]; Protocol Last Admin: 11/03/18 10:07 Dose: 100 mls/hr Azithromycin (Zithromax 500mg Ivpb (Pre-Docked)) 500 mg in 250 mls @ 250 mls/ hr IVPB DAILY [facility] Last Admin: 11/03/18 10:11 Dose: 250 mls/hr Insulin Aspart (Novolog Vial) 0 units SQ ACHS [facility]; Protocol Last Admin: 11/03/18 06:30 Dose: 4 units Levothyroxine Sodium (Synthroid -) 50 mcg PO DAILY@0700 [facility] Last Admin: 11/03/18 06:30 Dose: 50 mcg Mupirocin (Bactroban Ointment (For Decolonization) -) 1 applic NS BID [facility] Stop: 11/06/18 21:59 Last Admin: 11/03/18 10:12 Dose: 1 applic - Objective Vital Signs: Vital Signs Temperature 98.0 F 11/03/18 10:00 Pulse Rate 80 11/03/18 10:00 Respiratory Rate 17 11/03/18 10:00 Blood Pressure 111/54 L 11/03/18 10:00 O2 Sat by Pulse Oximetry (%) 88 L 11/02/18 21:00 Constitutional: Yes: Calm. No: Mild Distress Cardiovascular: Yes: Regular Rate and Rhythm, S1, S2. No: Murmur Respiratory: Yes: CTA Bilaterally Gastrointestinal: Yes: Normal Bowel Sounds, Soft. No: Tenderness Edema: No Neurological: Yes: Alert, Oriented Labs: CBC, BMP 11/03/18 05:30 11/03/18 05:30 INR, PTT INR 1.14 (0.83-1.09) H 11/01/18 16:30 Impression/Plan Impression/Plan: 73 y/o F h/o HTN, DM, and hypothyroidism admitted to ICU for hyperkalemia required urgent dialysis. Neuro - A& O x3 - stable Cardio - stable, bradycardia resolved - hx of hypertension hold for now Pulm - ABD CT: extensive bilateral lower lobe consolidation and associated small pleural effusions - f/u cultures - ceftriaxone and azithromycin day 2 Renal - hyperkalemia resolved with dialysis GI - ABD CT: fat containing ventral hernia with mild inflammatory stranding within the hernia sac, additional fat containing umbilical hernia - stable for feeding ID - f/u blood cx, urine cx - emperic antibiotics, Ceftriaxone and Azithromycin Endo - hx hypothyroidism, continue levothyroxine 50 mcg - hx DM, monitor sugars can add SS if needed Heme - heparin TID for ppx FEN - no fluid - low sodium, diabetic diet - monitor lytes closely Dispo: transfer to tele Visit type - Emergency Visit Emergency Visit: No - New Patient This patient is new to me today: No - Critical Care Critical Care patient: Yes Total Critical Care Time (in minutes): 35 Critical Care Statement: The care of this patient involved high complexity decision making to prevent further life threatening deterioration of the patient 's condition and/or to evaluate & treat vital organ system(s) failure or risk of failure.
--- NOTE | 2018-11-03 11:37 | PN ---
Teaching Attending Note Name of Resident: Gentry Carson ATTENDING PHYSICIAN STATEMENT I saw and evaluated the patient. I reviewed the resident's note and discussed the case with the resident. I agree with the resident's findings and plan as documented. SUBJECTIVE: Pt seen and examined in the ICU. Episodic hypoxia overnight. Currently without complaints. Maintaining good urine output. OBJECTIVE: Vital Signs Period Temp Pulse Resp BP Sys/[place] Pulse Ox Last 24 Hr 98.0 F-99.9 F 65-90 17-29 93-144/47-66 88 Intake & Output 10/31/18 11/01/18 11/02/18 11/03/18 23:59 23:59 23:59 23:59 Intake Total 1200 2108 Output Total 0 5100 Balance 1200 -2992 Weight 62.959 kg 64.098 kg 62.6 kg Gen: NAD at rest Heart: RRR Lung: decreased breath sounds at the bases Abd: soft, nontender Ext: no edema CBC, BMP 11/03/18 05:30 11/03/18 05:30 Active Medications Atorvastatin Calcium (Lipitor -) 10 mg PO HS SU Last Admin: 11/02/18 22:36 Dose: 10 mg Chlorhexidine Gluconate (Hibiclens For Decolonization -) 1 applic TP HS SU Last Admin: 11/02/18 22:36 Dose: 1 applic Heparin Sodium (Porcine) (Heparin -) 5,000 unit SQ TID [facility] Last Admin: 11/03/18 06:30 Dose: 5,000 unit Sodium Chloride (Normal Saline -) 250 mls @ 3,000 mls/hr IV PRN PRN PRN Reason: Hypotension during Dialysis Stop: 11/02/18 19:02 Ceftriaxone Sodium 1 gm/ (Dextrose) 50 mls @ 100 mls/hr IVPB DAILY [facility]; Protocol Last Admin: 11/03/18 10:07 Dose: 100 mls/hr Azithromycin (Zithromax 500mg Ivpb (Pre-Docked)) 500 mg in 250 mls @ 250 mls/ hr IVPB DAILY SU Last Admin: 11/03/18 10:11 Dose: 250 mls/hr Insulin Aspart (Novolog Vial) 0 units SQ ACHS [facility]; Protocol Last Admin: 11/03/18 06:30 Dose: 4 units Levothyroxine Sodium (Synthroid -) 50 mcg PO DAILY@0700 [facility] Last Admin: 11/03/18 06:30 Dose: 50 mcg Mupirocin (Bactroban Ointment (For Decolonization) -) 1 applic NS BID SU Stop: 11/06/18 21:59 Last Admin: 11/03/18 10:12 Dose: 1 applic ASSESSMENT AND PLAN: Junctional Bradycardia resolved Hyperkalemia improved Acute Kidney Injury requiring acute HD Pneumonia HTN DM Hyperlipidemia Hypothyroidism r/o Obstructive Sleep Apnea - monitor urine output, creatinine - d/c HD catheter - continue antibiotics - DVT prophylaxis - can monitor on telemetry - outpt PSG
--- NOTE | 2018-11-03 12:51 | PN ---
Progress Note (short form) - Note Progress Note: s: no cp sob palps dizzy o: Vital Signs Period Temp Pulse Resp BP Sys/[place] Pulse Ox Last 24 Hr 98.0 F-99.9 F 65-90 17-29 93-144/47-99 88 nad no jvd rrr s1s2 no mrg cta bl nl eff aao3 no le e/c/c abd nt nd pos bs no jaundice diaphoresis Current Medications Generic Name Dose Route Start Last Admin Trade Name Freq PRN Reason Stop Dose Admin Atorvastatin Calcium 10 mg 11/01/18 22:00 11/02/18 22:36 Lipitor - PO 10 mg HS SU Administration Chlorhexidine Gluconate 1 applic 11/01/18 22:00 11/02/18 22:36 Hibiclens For Decolonization - TP 1 applic HS SU Administration Heparin Sodium (Porcine) 5,000 unit 11/02/18 14:00 11/03/18 06:30 Heparin - SQ 5,000 unit TID SU Administration Sodium Chloride 250 mls @ 3,000 mls/hr 11/01/18 19:02 Normal Saline - IV 11/02/18 19:02 PRN PRN Hypotension during Dialysis Ceftriaxone Sodium 1 gm/ 50 mls @ 100 mls/hr 11/02/18 12:00 11/03/18 10:07 Dextrose IVPB 100 mls/hr DAILY SU Administration Protocol Azithromycin 500 mg in 250 mls @ 250 mls/hr 11/02/18 11:30 11/03/18 10:11 Zithromax 500mg Ivpb (Pre-Docked) IVPB 250 mls/hr DAILY SU Administration Insulin Aspart 0 units 11/01/18 16:30 11/03/18 11:46 Novolog Vial SQ 10 units ACHS SU Administration Protocol Levothyroxine Sodium 50 mcg 11/02/18 07:00 11/03/18 06:30 Synthroid - PO 50 mcg DAILY@0700 SU Administration Mupirocin 1 applic 11/01/18 22:00 11/03/18 10:12 Bactroban Ointment (For Decolonization) - NS 11/06/18 21:59 1 applic BID SU Administration CBC, BMP 11/03/18 05:30 11/03/18 05:30 ecgs reviewed: junctional rhythm with no ischemic changes, hr 46, nl qtc. Repeat ecg with sr and competing junctional rhythm, no ischemic findings, nl qtc tele: sr echo 10/2018: nl lv/rv, no sig valve path mibi 10/2018: nl mpi a/p: 73 f hx htn, hld, dm, hypothyroid, here with syncope. syncope, bradycardia, hypotension: -syncope seems to be vagal episode from straining for BM and abd pain -she also had junctional bradycardia likely 2/2 to k in 7's. After HD to correct K her hr and rhythm normalized. joyce, hyperkalemia: -recent preop labs unremarkable but now presenting with joyce and hyperkalemia -improved after HD -renal following n/v, abd pain: -resolved htn: -holding home meds for now given hypotension initially hypothyroid -on synthroid hld: -cont statin
--- NOTE | 2018-11-03 14:11 | PN ---
Progress Note, Physician History of Present Illness: Pt seen and examined at bedside. She is awake and alert. She did have shortness of breath last night and required lasix. - Current Medication List Current Medications: Active Medications Atorvastatin Calcium (Lipitor -) 10 mg PO HS [facility] Last Admin: 11/02/18 22:36 Dose: 10 mg Chlorhexidine Gluconate (Hibiclens For Decolonization -) 1 applic TP HS [facility] Last Admin: 11/02/18 22:36 Dose: 1 applic Furosemide (Lasix -) 40 mg PO ONCE ONE Stop: 11/03/18 14:08 Heparin Sodium (Porcine) (Heparin -) 5,000 unit SQ TID [facility] Last Admin: 11/03/18 06:30 Dose: 5,000 unit Sodium Chloride (Normal Saline -) 250 mls @ 3,000 mls/hr IV PRN PRN PRN Reason: Hypotension during Dialysis Stop: 11/02/18 19:02 Ceftriaxone Sodium 1 gm/ (Dextrose) 50 mls @ 100 mls/hr IVPB DAILY [facility]; Protocol Last Admin: 11/03/18 10:07 Dose: 100 mls/hr Azithromycin (Zithromax 500mg Ivpb (Pre-Docked)) 500 mg in 250 mls @ 250 mls/ hr IVPB DAILY [facility] Last Admin: 11/03/18 10:11 Dose: 250 mls/hr Insulin Aspart (Novolog Vial) 0 units SQ ACHS [facility]; Protocol Last Admin: 11/03/18 11:46 Dose: 10 units Levothyroxine Sodium (Synthroid -) 50 mcg PO DAILY@0700 [facility] Last Admin: 11/03/18 06:30 Dose: 50 mcg Mupirocin (Bactroban Ointment (For Decolonization) -) 1 applic NS BID [facility] Stop: 11/06/18 21:59 Last Admin: 11/03/18 10:12 Dose: 1 applic Ranitidine HCl (Zantac -) 150 mg PO ONCE ONE Stop: 11/03/18 14:05 - Objective Vital Signs: Vital Signs Temperature 98.0 F 11/03/18 10:00 Pulse Rate 78 11/03/18 12:00 Respiratory Rate 23 H 11/03/18 12:00 Blood Pressure 118/99 11/03/18 12:00 O2 Sat by Pulse Oximetry (%) 90 L 11/03/18 09:00 Constitutional: Yes: Calm Eyes: Yes: Conjunctiva Clear HENT: Yes: Atraumatic Neck: Yes: Supple Cardiovascular: Yes: S1, S2 Respiratory: Yes: On Nasal O2, Rhonchi Gastrointestinal: Yes: Normal Bowel Sounds, Soft Genitourinary: Yes: WNL Musculoskeletal: Yes: WNL Edema: No Neurological: Yes: Oriented Psychiatric: Yes: Oriented Labs: CBC, BMP 11/03/18 05:30 11/03/18 05:30 INR, PTT INR 1.14 (0.83-1.09) H 11/01/18 16:30 Assessment/Plan Current Medications Generic Name Dose Route Start Last Admin Trade Name Freq PRN Reason Stop Dose Admin Atorvastatin Calcium 10 mg 11/01/18 22:00 11/02/18 22:36 Lipitor - PO 10 mg HS SU Administration Chlorhexidine Gluconate 1 applic 11/01/18 22:00 11/02/18 22:36 Hibiclens For Decolonization - TP 1 applic HS SU Administration Furosemide 40 mg 11/03/18 14:07 Lasix - PO 11/03/18 14:08 ONCE ONE Heparin Sodium (Porcine) 5,000 unit 11/02/18 14:00 11/03/18 06:30 Heparin - SQ 5,000 unit TID SU Administration Sodium Chloride 250 mls @ 3,000 mls/hr 11/01/18 19:02 Normal Saline - IV 11/02/18 19:02 PRN PRN Hypotension during Dialysis Ceftriaxone Sodium 1 gm/ 50 mls @ 100 mls/hr 11/02/18 12:00 11/03/18 10:07 Dextrose IVPB 100 mls/hr DAILY SU Administration Protocol Azithromycin 500 mg in 250 mls @ 250 mls/hr 11/02/18 11:30 11/03/18 10:11 Zithromax 500mg Ivpb (Pre-Docked) IVPB 250 mls/hr DAILY SU Administration Insulin Aspart 0 units 11/01/18 16:30 11/03/18 11:46 Novolog Vial SQ 10 units ACHS SU Administration Protocol Levothyroxine Sodium 50 mcg 11/02/18 07:00 11/03/18 06:30 Synthroid - PO 50 mcg DAILY@0700 SU Administration Mupirocin 1 applic 11/01/18 22:00 11/03/18 10:12 Bactroban Ointment (For Decolonization) - NS 11/06/18 21:59 1 applic BID SU Administration Ranitidine HCl 150 mg 11/03/18 14:04 Zantac - PO 11/03/18 14:05 ONCE ONE Laboratory Tests 11/01/18 11/02/18 11/02/18 20:20 05:30 05:30 SHANTA M-Sharad Pending CATERINA Screen Pending c-ANCA Pending Proteinase 3 (PR3) Pending p-ANCA Pending Atypical p-ANCA Pending Myeloperoxidase Ab Pending Double Strand DNA Ab <1 Glomerular Base Memb Ab Pending Hepatitis A Ab Total Pending Hep Bs Antigen Pending Hep Bs Antibody Pending Hep B Core Total Ab Pending Impression 1. LOPEZ 2. hyperkalemia 3. metabolic acidosis 4. DM 5. hernia 6. hypothyroidism Plan - d/c edgar - will give a dose of lasix - repeat labs in am - follow serologies - discussed with family
[2018-11-03] MEDS ORDERED: FUROSEMIDE 40 MG TABLET (FP) PO ONE (14:45)
[2018-11-03] MEDS ORDERED: RANITIDINE HCL 150 MG TABLET (FP) PO ONE (14:45)
[2018-11-03 16:13] LABS: HBSAG SCREEN Negative (Negative); HEP A AB, IGM Negative (Negative); HEP B CORE AB, TOT Negative (Negative)
[2018-11-03] MEDS ORDERED: CHLORHEXIDINE GLUCONATE 4% CLEANSER FOR DECOLONIZATION TP SCH (22:00)
[2018-11-03] MEDS ORDERED: INSULIN (NOVOLOG) ASPART 100 UNITS/ML 10ML VIAL SQ SCH (22:00)
[2018-11-03] MEDS ORDERED: MUPIROCIN 2% TOPICAL OINTMENT FOR DECOLONIZATION NS SCH (22:00)
[2018-11-03] MEDS: ATORVASTATIN CA 10 MG TABLET (FP) PO SCH (22:07)
[2018-11-04] MEDS ORDERED: Insulin (LOG) Aspart 100 UNITS/ML VIAL SQ ONE (00:06)
[2018-11-04] MEDS: LEVOTHYROXINE NA 50 MCG TABLET (FP) PO SCH (06:17)
[2018-11-04] MEDS: HEPARIN NA (PORCINE) 5,000 UNITS/ML 1ML VIAL SQ SCH ×3 (06:19→22:20)
[2018-11-04] MEDS: INSULIN (NOVOLOG) ASPART 100 UNITS/ML 10ML VIAL SQ SCH ×2 (06:19→12:13)
--- NOTE | 2018-11-04 09:13 | PN ---
Progress Note, Physician Chief Complaint: Denies CP or SOB TELE: NSR - Current Medication List Current Medications: Active Medications Atorvastatin Calcium (Lipitor -) 10 mg PO HS [facility] Last Admin: 11/03/18 22:07 Dose: 10 mg Heparin Sodium (Porcine) (Heparin -) 5,000 unit SQ TID [facility] Last Admin: 11/04/18 06:19 Dose: 5,000 unit Azithromycin (Zithromax 500mg Ivpb (Pre-Docked)) 500 mg in 250 mls @ 250 mls/ hr IVPB DAILY [facility] Ceftriaxone Sodium 1 gm/ (Dextrose) 50 mls @ 100 mls/hr IVPB DAILY [facility]; Protocol Insulin Aspart (Novolog Vial) 1 units SQ ACHS [facility]; Protocol Last Admin: 11/04/18 06:19 Dose: 1 units Levothyroxine Sodium (Synthroid -) 50 mcg PO DAILY@0700 [facility] Last Admin: 11/04/18 06:17 Dose: 50 mcg - Objective Vital Signs: Vital Signs Temperature 98.5 F 11/04/18 06:00 Pulse Rate 75 11/04/18 06:00 Respiratory Rate 20 11/04/18 06:00 Blood Pressure 122/63 11/04/18 06:00 O2 Sat by Pulse Oximetry (%) 95 11/03/18 20:54 Constitutional: Yes: Calm Cardiovascular: Yes: Regular Rate and Rhythm Respiratory: Yes: CTA Bilaterally Gastrointestinal: Yes: Soft Edema: No Neurological: Yes: Alert, Oriented Labs: CBC, BMP 11/03/18 05:30 INR, PTT INR 1.14 (0.83-1.09) H 11/01/18 16:30 Laboratory Tests 11/04/18 05:30 WBC Pending Hgb Pending Plt Count Pending - ....Imaging EKG: Image Reviewed Assessment/Plan a/p: 73 f hx htn, hld, dm, hypothyroid, here with syncope. 1. Syncope, bradycardia, hypotension: -syncope seems to be vagal episode from straining for BM and abd pain -she also had junctional bradycardia likely 2/2 to k in 7's. After HD to correct K her hr and rhythm normalized. 2. Manuel, hyperkalemia: -recent preop labs unremarkable but now presenting with manuel and hyperkalemia -improved after HD -renal following 3. n/v, abd pain: -resolved 4.HTN: -holding home meds for now given hypotension initially
[2018-11-04 09:16] LABS: BASO % 0.7 % (0-2.0); EOS % 2.7 % (0-4.5); HEMATOCRIT 33.9 % (32.4-45.2); HEMOGLOBIN 11.2 GM/dL (10.7-15.3); LYMPH % 31.2 % (8-40); MCH 31.6 pg (25.7-33.7); MCHC 32.9 g/dl (32.0-36.0); MEAN PLT VOLUME 11.5 fl (7.5-11.1); MONO % 10.7 % (3.8-10.2); NEUT % 54.7 % (42.8-82.8); PLATELET COUNT 139 K/MM3 (134-434); RBC 3.53 M/mm3 (3.60-5.2); RDW 12.8 % (11.6-15.6); WHITE BLOOD COUNT 6.4 K/mm3 (4.0-10.0)
[2018-11-04 09:39] LABS: ALBUMIN 3.7 g/dl (3.4-5.0); ALK PHOS 74 U/L (45-117); ANION GAP 8 MMOL/L (8-16); BILIRUBIN,TOTAL 0.6 mg/dL (0.2-1); BLOOD UREA NITROGEN 28 mg/dL (7-18); CHLORIDE 100 mmol/L (98-107); CO2 26 mmol/L (21-32); CREATININE 1.3 mg/dL (0.55-1.3); GLUCOSE,RANDOM 180 mg/dL (74-106); POTASSIUM 3.9 mmol/L (3.5-5.1); SGOT/AST 43 U/L (15-37); SGPT/ALT 42 U/L (13-61); SODIUM 133 mmol/L (136-145)
[2018-11-04] MEDS ORDERED: cefTRIAXone SODIUM 1 GM VIAL ONE ×2 (10:33→10:36)
[2018-11-04] MEDS ORDERED: DEXTROSE 5%-WATER - 50 ML IVPB ONE (10:36)
[2018-11-04] MEDS: CEFTRIAXONE 1 GM in DEXTROSE 5%-WATER - 50 ML IVPB SCH (10:50)
[2018-11-04] MEDS: AZITHROMYCIN IVPB 500 MG/250 ML BAG IVPB SCH (10:52)
[2018-11-04 11:18] LABS: ANTIGLOMERULAR BASEMENT MEN.AB 2 units (0-20)
--- NOTE | 2018-11-04 11:53 | PN ---
Progress Note, Physician History of Present Illness: pulmonary alert ,comfortable,-cp,-sob at rest . o2 sat 91% on nasal cannula - Current Medication List Current Medications: Active Medications Atorvastatin Calcium (Lipitor -) 10 mg PO HS COUNTS INCLUDE 234 BEDS AT THE [facility] Last Admin: 11/03/18 22:07 Dose: 10 mg Heparin Sodium (Porcine) (Heparin -) 5,000 unit SQ TID COUNTS INCLUDE 234 BEDS AT THE [facility] Last Admin: 11/04/18 06:19 Dose: 5,000 unit Azithromycin (Zithromax 500mg Ivpb (Pre-Docked)) 500 mg in 250 mls @ 250 mls/ hr IVPB DAILY COUNTS INCLUDE 234 BEDS AT THE [facility] Last Admin: 11/04/18 10:52 Dose: 250 mls/hr Ceftriaxone Sodium 1 gm/ (Dextrose) 50 mls @ 100 mls/hr IVPB DAILY COUNTS INCLUDE 234 BEDS AT THE [facility]; Protocol Last Admin: 11/04/18 10:50 Dose: 100 mls/hr Insulin Aspart (Novolog Vial) 1 units SQ ACHS COUNTS INCLUDE 234 BEDS AT THE [facility]; Protocol Last Admin: 11/04/18 06:19 Dose: 1 units Levothyroxine Sodium (Synthroid -) 50 mcg PO DAILY@0700 COUNTS INCLUDE 234 BEDS AT THE [facility] Last Admin: 11/04/18 06:17 Dose: 50 mcg - Objective Vital Signs: Vital Signs Temperature 98 F 11/04/18 09:00 Pulse Rate 86 11/04/18 09:00 Respiratory Rate 20 11/04/18 09:00 Blood Pressure 129/59 L 11/04/18 09:00 O2 Sat by Pulse Oximetry (%) 95 11/03/18 20:54 Constitutional: Yes: Well Nourished, Calm Eyes: Yes: WNL HENT: Yes: WNL Neck: Yes: WNL Cardiovascular: Yes: Regular Rate and Rhythm, S1, S2 Respiratory: Yes: CTA Bilaterally Gastrointestinal: Yes: Normal Bowel Sounds, Soft Extremities: Yes: WNL Edema: No Labs: CBC, BMP 11/04/18 05:30 11/04/18 05:30 INR, PTT INR 1.14 (0.83-1.09) H 11/01/18 16:30 Problem List - Problems (1) Hypoxemia Code(s): R09.02 - HYPOXEMIA (2) LOPEZ (acute kidney injury) Code(s): N17.9 - ACUTE KIDNEY FAILURE, UNSPECIFIED (3) Bradycardia Code(s): R00.1 - BRADYCARDIA, UNSPECIFIED (4) Diabetes mellitus Code(s): E11.9 - TYPE 2 DIABETES MELLITUS WITHOUT COMPLICATIONS Qualifiers: Diabetes mellitus type: type 2 Qualified Code(s): E11.9 - Type 2 diabetes mellitus without complications (5) HTN (hypertension) Code(s): I10 - ESSENTIAL (PRIMARY) HYPERTENSION Qualifiers: Hypertension type: essential hypertension Qualified Code(s): I10 - Essential (primary) hypertension (6) Hypercholesteremia Code(s): E78.0 - PURE HYPERCHOLESTEROLEMIA * DO NOT USE * (7) Pneumonia Code(s): J18.9 - PNEUMONIA, UNSPECIFIED ORGANISM Assessment/Plan ASSESSMENT AND PLAN: Junctional Bradycardia resolved Hyperkalemia improved Acute Kidney Injury requiring acute HD Pneumonia HTN DM Hyperlipidemia Hypothyroidism r/o Obstructive Sleep Apnea - monitor urine output, creatinine - antibiotics - DVT prophylaxis - outpt PSG - inhaled bronchodilators - abg on ra DR LARSON
--- NOTE | 2018-11-04 11:55 | PN ---
Physical Exam: SUBJECTIVE: Patient seen and examined at the bedside. her family is present. OBJECTIVE: Vital Signs Period Temp Pulse Resp BP Sys/[place] Pulse Ox Last 24 Hr 98 F-99.2 F 75-87 20-23 111-136/56-99 95 GENERAL: The patient is awake, alert, and fully oriented elderly female, in no acute distress. HEAD: Normal with no signs of trauma. EYES: PERRL, sclera anicteric, conjunctiva clear. No ptosis. ENT: nares patent, oropharynx clear without exudates, moist mucous membranes. NECK: Trachea midline, full range of motion, supple. LUNGS: Breath sounds equal but decreased at the bases, no accessory muscle use. HEART: Regular rate and rhythm, S1, S2 without murmur, rub or gallop. ABDOMEN: Soft, nontender, nondistended, normoactive bowel sounds, no guarding, no rebound, EXTREMITIES: 2+ pulses, warm, well-perfused, no edema. PSYCH: Normal mood, normal affect. SKIN: Warm, dry, normal turgor, no rashes or lesions noted NEURO: alert and oriented. Laboratory Results - last 24 hr 11/01/18 11/02/18 11/02/18 20:20 05:30 05:30 WBC RBC Hgb Hct MCV MCH MCHC RDW Plt Count MPV Absolute Neuts (auto) Neutrophils % Lymphocytes % Monocytes % Eosinophils % Basophils % Nucleated RBC % Sodium Potassium Chloride Carbon Dioxide Anion Gap BUN Creatinine Creat Clearance w eGFR POC Glucometer Random Glucose Calcium Total Bilirubin AST ALT Alkaline Phosphatase Total Protein Total Protein (PEP) 6.6 Albumin Albumin (PEP) 3.4 Globulin 3.2 Albumin/Globulin Ratio 1.1 Beta Globulins 1.3 SHANTA M-Sharad Not observed [place] Screen Negative Glomerular Base Memb Ab 2 Hep A IgM Ab Confirm Negative Hepatitis A Ab Total Positive H Hep Bs Antigen Negative Hep Bs Antibody Non reactive Hep B Core Total Ab Negative 11/03/18 11/03/18 11/03/18 17:27 21:46 23:46 WBC RBC Hgb Hct MCV MCH MCHC RDW Plt Count MPV Absolute Neuts (auto) Neutrophils % Lymphocytes % Monocytes % Eosinophils % Basophils % Nucleated RBC % Sodium Potassium Chloride Carbon Dioxide Anion Gap BUN Creatinine Creat Clearance w eGFR POC Glucometer 398 438 373 Random Glucose Calcium Total Bilirubin AST ALT Alkaline Phosphatase Total Protein Total Protein (PEP) Albumin Albumin (PEP) Globulin Albumin/Globulin Ratio Beta Globulins SHANTA M-Sharad [place] Screen Glomerular Base Memb Ab Hep A IgM Ab Confirm Hepatitis A Ab Total Hep Bs Antigen Hep Bs Antibody Hep B Core Total Ab 11/04/18 11/04/18 11/04/18 05:30 05:30 05:43 WBC 6.4 RBC 3.53 L Hgb 11.2 Hct 33.9 D MCV 96.0 MCH 31.6 MCHC 32.9 RDW 12.8 Plt Count 139 MPV 11.5 H Absolute Neuts (auto) 3.5 Neutrophils % 54.7 Lymphocytes % 31.2 D Monocytes % 10.7 H Eosinophils % 2.7 D Basophils % 0.7 D Nucleated RBC % 0 Sodium 133 L Potassium 3.9 Chloride 100 Carbon Dioxide 26 Anion Gap 8 BUN 28 H Creatinine 1.3 Creat Clearance w eGFR 40.04 POC Glucometer 151 Random Glucose 180 H Calcium 9.0 Total Bilirubin 0.6 AST 43 H ALT 42 Alkaline Phosphatase 74 Total Protein 8.0 Total Protein (PEP) Albumin 3.7 Albumin (PEP) Globulin Albumin/Globulin Ratio Beta Globulins SHANTA M-Sharad [place] Screen Glomerular Base Memb Ab Hep A IgM Ab Confirm Hepatitis A Ab Total Hep Bs Antigen Hep Bs Antibody Hep B Core Total Ab Active Medications Generic Name Dose Route Start Last Admin Trade Name Rasheedq PRN Reason Stop Dose Admin Atorvastatin Calcium 10 mg 11/03/18 22:00 11/03/18 22:07 Lipitor - PO 10 mg HS SU Administration Heparin Sodium (Porcine) 5,000 unit 11/03/18 22:00 11/04/18 06:19 Heparin - SQ 5,000 unit TID SU Administration Azithromycin 500 mg in 250 mls @ 250 mls/hr 11/04/18 10:00 11/04/18 10:52 Zithromax 500mg Ivpb (Pre-Docked) IVPB 250 mls/hr DAILY SU Administration Ceftriaxone Sodium 1 gm/ 50 mls @ 100 mls/hr 11/04/18 10:00 11/04/18 10:50 Dextrose IVPB 100 mls/hr DAILY SU Administration Protocol Insulin Aspart 1 units 11/03/18 22:22 11/04/18 06:19 Novolog Vial SQ 1 units ACHS SU Administration Protocol Levothyroxine Sodium 50 mcg 11/04/18 07:00 11/04/18 06:17 Synthroid - PO 50 mcg DAILY@0700 [facility] Administration ASSESSMENT/PLAN: Patient is a 73 year old female with past medical history of HTN, DM, hypothyroidism, HLD, ventral hernia presenting to ED for near-syncope. Patient scheduled for a ventral hernia repair but has been having severe abdominal pain and a near syncopal episode at home. patient had a pre op workup up a few days prior and reported to be within normal limits. Patient transferred from [facility] to [facility] for emergent TDC placement for HD. She is now s/p HD with resolution of hyperkalemia and downtrending serum Cr. CV: Hypertension. oliverio inhibitor d/c secondary to kidney function. She was also slightly hypotensive on admission and her cardiac medications are on hold. Junctional bradycardia on admission secondary to K in the 7s Heart rhythm normalized after K corrected Hyperlipidemia, on lipitor 10mg Renal: LOPEZ with hyperkalemia, resolved s/p HD. continue to trend creatinine and electrolytes pt has good urine outptut renal following Endo: Diabetes, elevated Dr. Baxter following. On Novolog Pulm: B/L pleural effusions continue Azithromycin and Ceftriaxone. Monitor labs. vitals. tolerating room air. Pulm following Endo hypothyroidism synthroid 50mcg daily fen tolerating po monitor electrolytes prophy: heparin SC TID OOB to chair DISPO: requires inpatient hospitalization Visit type - Emergency Visit Emergency Visit: Yes ED Registration Date: 11/01/18 Care time: The patient presented to the Emergency Department on the above date and was hospitalized for further evaluation of their emergent condition. - New Patient This patient is new to me today: No - Critical Care Critical Care patient: No - Discharge Referral Referred to [facility] Med P.C.: No
[2018-11-04 12:29] LABS: ARTERIAL BLD GAS O2 SATURATION 92.6 % (95-98); ARTERIAL BLOOD GAS BASE EXCESS -2.2 meq/l (-2-2); ARTERIAL BLOOD GAS PCO2 32.1 mmHg (35-45); ARTERIAL BLOOD GAS PO2 66.1 mmHg (80-105); ARTERIAL BLOOD GAS pH 7.43 (7.35-7.45)
[2018-11-04 12:42] LABS: ALLENS TEST POSITIVE
[2018-11-04] MEDS ORDERED: INSULIN SLIDING SCALE (NOVOLOG) 1 VIAL SQ SCH (14:45)
--- NOTE | 2018-11-04 15:15 | PN ---
Progress Note, Physician History of Present Illness: Pt seen and examined at bedside. She is awake and alert. - Current Medication List Current Medications: Active Medications Albuterol/Ipratropium (Duoneb -) 1 amp NEB Q4H PRN PRN Reason: SHORTNESS OF BREATH Atorvastatin Calcium (Lipitor -) 10 mg PO HS [facility] Last Admin: 11/03/18 22:07 Dose: 10 mg Heparin Sodium (Porcine) (Heparin -) 5,000 unit SQ TID SU Last Admin: 11/04/18 15:09 Dose: 5,000 unit Azithromycin (Zithromax 500mg Ivpb (Pre-Docked)) 500 mg in 250 mls @ 250 mls/ hr IVPB DAILY [facility] Last Admin: 11/04/18 10:52 Dose: 250 mls/hr Ceftriaxone Sodium 1 gm/ (Dextrose) 50 mls @ 100 mls/hr IVPB DAILY [facility]; Protocol Last Admin: 11/04/18 10:50 Dose: 100 mls/hr Insulin Aspart (Novolog Vial Sliding Scale -) 1 vial SQ ACHS [facility]; Protocol Levothyroxine Sodium (Synthroid -) 50 mcg PO DAILY@0700 [facility] Last Admin: 11/04/18 06:17 Dose: 50 mcg - Objective Vital Signs: Vital Signs Temperature 98 F 11/04/18 09:00 Pulse Rate 86 11/04/18 09:00 Respiratory Rate 20 11/04/18 09:00 Blood Pressure 129/59 L 11/04/18 09:00 O2 Sat by Pulse Oximetry (%) 95 11/04/18 09:00 Constitutional: Yes: Calm Eyes: Yes: Conjunctiva Clear HENT: Yes: Atraumatic Cardiovascular: Yes: S1, S2 Respiratory: Yes: CTA Bilaterally, On Nasal O2 Gastrointestinal: Yes: Soft Genitourinary: Yes: WNL Musculoskeletal: Yes: WNL Edema: No Neurological: Yes: Oriented Psychiatric: Yes: Oriented Labs: CBC, BMP 11/04/18 05:30 11/04/18 05:30 INR, PTT INR 1.14 (0.83-1.09) H 11/01/18 16:30 Assessment/Plan Current Medications Generic Name Dose Route Start Last Admin Trade Name Freq PRN Reason Stop Dose Admin Albuterol/Ipratropium 1 amp 11/04/18 12:02 Duoneb - NEB Q4H PRN SHORTNESS OF BREATH Atorvastatin Calcium 10 mg 11/03/18 22:00 11/03/18 22:07 Lipitor - PO 10 mg HS SU Administration Heparin Sodium (Porcine) 5,000 unit 11/03/18 22:00 11/04/18 15:09 Heparin - SQ 5,000 unit TID SU Administration Azithromycin 500 mg in 250 mls @ 250 mls/hr 11/04/18 10:00 11/04/18 10:52 Zithromax 500mg Ivpb (Pre-Docked) IVPB 250 mls/hr DAILY SU Administration Ceftriaxone Sodium 1 gm/ 50 mls @ 100 mls/hr 11/04/18 10:00 11/04/18 10:50 Dextrose IVPB 100 mls/hr DAILY SU Administration Protocol Insulin Aspart 1 vial 11/04/18 14:45 Novolog Vial Sliding Scale - SQ ACHS SU Protocol Levothyroxine Sodium 50 mcg 11/04/18 07:00 11/04/18 06:17 Synthroid - PO 50 mcg DAILY@0700 SU Administration Laboratory Tests 11/01/18 11/01/18 11/02/18 20:20 20:20 05:30 c-ANCA Pending Proteinase 3 (PR3) Pending p-ANCA Pending Atypical p-ANCA Pending Myeloperoxidase Ab Pending Double Strand DNA Ab <1 Glomerular Base Memb Ab 2 Hep Bs Antigen Negative Hep Bs Antibody Non reactive Hep B Core Total Ab Negative Hep C Ab Diagnostic <0.1 Impression 1. LOPEZ 2. hyperkalemia 3. metabolic acidosis 4. DM 5. hernia 6. hypothyroidism Plan - will give 20 mg of lasix - repeat labs in am - monitor glucose - follow serologies - discussed with family
[2018-11-04] MEDS ORDERED: FUROSEMIDE 20 MG TABLET (FP) PO ONE (15:16)
--- NOTE | 2018-11-04 16:35 | CONSULT ---
Consult Consult Specialty:: Endocrinology Referred by:: Eliz Reddy Reason for Consultation:: Hyperglycemia - History of Present Illness Chief Complaint: Syncope History of Present Illness: This is a 73 year-old female with h/o HTN, HLD, and T2DM on Insulin who had episode of syncope while waiting for ventral hernia repair at [facility]. Pt found to be hypotensive, bradycardic and in BRAIN with K+ of 7. Pt was treated with IV hydration and had hemodialysis once with improvement in symptoms and renal function. Pt currently hypoxic on NC 5 liters. Pt referred for management of hyperglycemia. Pt gives h/o of urge to repeatd urge to defecate the day before admission. No fever or chills. At home she was getting Lantus 50 in the morning and 25 at night with Novolog coverage Premeals from 16 to 38 TID. - History Source History Provided By: Patient, Family Member, Medical Record - Past Medical History Cardio/Vascular: Yes: HTN, Hyperlipdemia Gastrointestinal: Yes: Other (hernia) ...: No Endocrine: Yes: Diabetes Mellitus, Hypothyroidism - Past Surgical History Past Surgical History: Yes: Cataract Removal - Alcohol/Substance Use Hx Alcohol Use: No - Smoking History Smoking history: Never smoked Have you smoked in the past 12 months: No Home Medications - Allergies Allergies/Adverse Reactions: Allergies Allergy/AdvReac Type Severity Reaction Status Date / Time No Known Allergies Allergy Verified 11/06/14 13:48 - Home Medications Home Medications: Ambulatory Orders Amlodipine Besylate [Norvasc -] 5 mg PO DAILY 11/06/14 Enalapril Maleate [Vasotec -] 10 mg PO DAILY 11/06/14 Insulin Glargine,Hum.rec.anlog [Lantus (nf)] 25 units SQ HS 11/06/14 Insulin Glargine,Hum.rec.anlog [Lantus (nf)] 55 units SQ AM 11/06/14 Simvastatin 10 mg PO HS 11/06/14 metFORMIN HCL [Glucophage -] 500 mg PO BID 11/06/14 Levothyroxine [Synthroid -] 50 mcg PO DAILY #30 tablet 11/08/14 Metoprolol Succinate [Toprol Xl] 12.5 mg PO DAILY #30 tab.sr.24h 11/08/14 Amlodipine Besylate 10 mg PO DAILY 10/28/18 Enalapril Maleate [Vasotec -] 10 mg PO BID 10/28/18 Insulin Glargine,Hum.rec.anlog [Lantus] 50 unit SQ DAILY 10/28/18 Insulin Sliding Scale [Novolog Vial Sliding Scale -] 10 units SQ DAILY 10/28/18 Levothyroxine [Synthroid -] 50 mcg PO DAILY 10/28/18 Simvastatin 10 mg PO HS 10/28/18 metFORMIN HCL [Metformin HCl] 1,000 mg PO BID 10/28/18 Review of Systems - Review of Systems Constitutional: reports: Loss of Appetite Eyes: reports: No Symptoms HENT: reports: No Symptoms Neck: reports: No Symptoms Cardiovascular: reports: No Symptoms Respiratory: reports: No Symptoms Gastrointestinal: reports: No Symptoms Genitourinary: reports: No Symptoms Neurological: reports: No Symptoms Endocrine: reports: No Symptoms Hematology/Lymphatic: reports: No Symptoms Physical Exam Vital Signs: Vital Signs Temperature 98.2 F 11/04/18 14:20 Pulse Rate 80 11/04/18 14:20 Respiratory Rate 20 11/04/18 14:20 Blood Pressure 125/62 11/04/18 14:20 O2 Sat by Pulse Oximetry (%) 95 11/04/18 09:00 Constitutional: Yes: No Distress, Calm Eyes: Yes: Conjunctiva Clear, EOM Intact HENT: Yes: Atraumatic, Normocephalic Neck: Yes: Supple, Trachea Midline Cardiovascular: Yes: Regular Rate and Rhythm Respiratory: Yes: Regular, CTA Bilaterally, Rales (B/L basal) Gastrointestinal: Yes: Normal Bowel Sounds, Soft Musculoskeletal: Yes: WNL Extremities: Yes: WNL Edema: No Neurological: Yes: Alert, Oriented Labs: CBC, BMP 11/04/18 05:30 11/04/18 05:30 Imaging - Results Chest X-ray: Report Reviewed Cat Scan: Report Reviewed Problem List - Problems (1) LOPEZ (acute kidney injury) Code(s): N17.9 - ACUTE KIDNEY FAILURE, UNSPECIFIED (2) Bradycardia Code(s): R00.1 - BRADYCARDIA, UNSPECIFIED (3) Hyperkalemia Code(s): E87.5 - HYPERKALEMIA (4) Hypotension Code(s): I95.9 - HYPOTENSION, UNSPECIFIED Qualifiers: Hypotension type: unspecified hypotension type Qualified Code(s): I95.9 - Hypotension, unspecified (5) Hypoxemia Code(s): R09.02 - HYPOXEMIA (6) Diabetes mellitus Code(s): E11.9 - TYPE 2 DIABETES MELLITUS WITHOUT COMPLICATIONS Qualifiers: Diabetes mellitus type: type 2 Qualified Code(s): E11.9 - Type 2 diabetes mellitus without complications Assessment/Plan AP: Pneumonia LOPEZ Hyperkalemia T2DM: A1c 6.6 Hypothyroidism IV Abx Bronchodilators BGM QACHS Start Levemir 12 units stat and daily Novolog SS coverage Will f/u
[2018-11-04] MEDS ORDERED: INSULIN (LEVEMIR) 100 UNITS/ML UNITS SQ ONE (16:44)
[2018-11-04] MEDS: INSULIN SLIDING SCALE (NOVOLOG) 1 VIAL SQ SCH ×2 (16:53→22:21)
[2018-11-04 18:09] LABS: ATYPICAL pANCA <1:20 titer (Neg:<1:20); C-ANCA <1:20 titer (Neg:<1:20); P-ANCA <1:20 titer (Neg:<1:20)
[2018-11-04] MEDS: ATORVASTATIN CA 10 MG TABLET (FP) PO SCH (22:22)
[2018-11-05] MEDS: HEPARIN NA (PORCINE) 5,000 UNITS/ML 1ML VIAL SQ SCH ×3 (05:56→21:30)
[2018-11-05] MEDS: INSULIN SLIDING SCALE (NOVOLOG) 1 VIAL SQ SCH ×4 (07:28→21:30)
[2018-11-05] MEDS: LEVOTHYROXINE NA 50 MCG TABLET (FP) PO SCH (07:28)
[2018-11-05 08:17] LABS: BASO % 0.6 % (0-2.0); EOS % 2.8 % (0-4.5); HEMATOCRIT 31.3 % (32.4-45.2); HEMOGLOBIN 10.5 GM/dL (10.7-15.3); LYMPH % 22.8 % (8-40); MCH 31.5 pg (25.7-33.7); MCHC 33.4 g/dl (32.0-36.0); MEAN CELL VOLUME 94.1 fl (80-96); MEAN PLT VOLUME 10.8 fl (7.5-11.1); NEUT % 64.8 % (42.8-82.8); PLATELET COUNT 147 K/MM3 (134-434); RBC 3.33 M/mm3 (3.60-5.2); RDW 12.2 % (11.6-15.6)
[2018-11-05 08:20] LABS: ALBUMIN 3.6 g/dl (3.4-5.0); ALK PHOS 69 U/L (45-117); ANION GAP 11 MMOL/L (8-16); BILIRUBIN,TOTAL 0.7 mg/dL (0.2-1); BLOOD UREA NITROGEN 28 mg/dL (7-18); CALCIUM 9.2 mg/dL (8.5-10.1); CHLORIDE 99 mmol/L (98-107); CO2 23 mmol/L (21-32); CREATININE 1.2 mg/dL (0.55-1.3); GLUCOSE,RANDOM 278 mg/dL (74-106); MAGNESIUM 1.8 mg/dL (1.8-2.4); POTASSIUM 4.2 mmol/L (3.5-5.1); SGOT/AST 56 U/L (15-37); SGPT/ALT 47 U/L (13-61); SODIUM 133 mmol/L (136-145); TOT PROT 7.5 g/dl (6.4-8.2)
--- NOTE | 2018-11-05 09:01 | PN ---
Physical Exam: SUBJECTIVE: Patient seen and examined at the bedside. OBJECTIVE: tachy 120s on monitor at 0730 this a.m. having some loose stools, will order stool culture blood sugars elevated, will address with pharmacy to have pt antbx in normal saline instead of D5, given one time orders of novolog bed alarm for night time as patient is ambulating to bathroom unassisted and is a fall risk start pepcid iv for reflux Vital Signs Period Temp Pulse Resp BP Sys/[place] Pulse Ox Last 24 Hr 97.7 F-98.3 F 54-89 18-22 105-136/58-73 99 GENERAL: The patient is awake, alert, and fully oriented elderly female, in no acute distress. HEAD: Normal with no signs of trauma. EYES: PERRL, sclera anicteric, conjunctiva clear. No ptosis. ENT: nares patent, oropharynx clear without exudates, moist mucous membranes. NECK: Trachea midline, full range of motion, supple. LUNGS: Breath sounds equal but decreased at the bases, no accessory muscle use. HEART: Regular rate and rhythm, S1, S2 without murmur, rub or gallop. ABDOMEN: Soft, nontender, nondistended, normoactive bowel sounds, no guarding, no rebound, EXTREMITIES: 2+ pulses, warm, well-perfused, no edema. PSYCH: Normal mood, normal affect. SKIN: Warm, dry, normal turgor, no rashes or lesions noted NEURO: alert and oriented. Laboratory Results - last 24 hr 11/02/18 11/04/18 11/04/18 05:30 05:30 05:30 WBC 6.4 RBC 3.53 L Hgb 11.2 Hct 33.9 D MCV 96.0 MCH 31.6 MCHC 32.9 RDW 12.8 Plt Count 139 MPV 11.5 H Absolute Neuts (auto) 3.5 Neutrophils % 54.7 Lymphocytes % 31.2 D Monocytes % 10.7 H Eosinophils % 2.7 D Basophils % 0.7 D Nucleated RBC % 0 Puncture Site ABG pH ABG pCO2 at Pt Temp ABG pO2 at Pt Temp ABG HCO3 ABG O2 Sat (Measured) ABG O2 Content ABG Base Excess Chris Test O2 Delivery Device Oxygen Flow Rate Sodium 133 L Potassium 3.9 Chloride 100 Carbon Dioxide 26 Anion Gap 8 BUN 28 H Creatinine 1.3 Creat Clearance w eGFR 40.04 POC Glucometer Random Glucose 180 H Hemoglobin A1c % Calcium 9.0 Magnesium Total Bilirubin 0.6 AST 43 H ALT 42 Alkaline Phosphatase 74 Total Protein 8.0 Albumin 3.7 c-ANCA <1:20 Proteinase 3 (PR3) <3.5 p-ANCA <1:20 Atypical p-ANCA <1:20 Myeloperoxidase Ab <9.0 Glomerular Base Memb Ab 2 11/04/18 11/04/18 11/04/18 05:30 11:53 12:21 WBC RBC Hgb Hct MCV MCH MCHC RDW Plt Count MPV Absolute Neuts (auto) Neutrophils % Lymphocytes % Monocytes % Eosinophils % Basophils % Nucleated RBC % Puncture Site Right radial ABG pH 7.43 ABG pCO2 at Pt Temp 32.1 L ABG pO2 at Pt Temp 66.1 L ABG HCO3 21.0 L ABG O2 Sat (Measured) 92.6 L ABG O2 Content 13.0 L ABG Base Excess -2.2 L Chris Test Positive O2 Delivery Device Room air Oxygen Flow Rate 21% Sodium Potassium Chloride Carbon Dioxide Anion Gap BUN Creatinine Creat Clearance w eGFR POC Glucometer 366 Random Glucose Hemoglobin A1c % 7.0 H Calcium Magnesium Total Bilirubin AST ALT Alkaline Phosphatase Total Protein Albumin c-ANCA Proteinase 3 (PR3) p-ANCA Atypical p-ANCA Myeloperoxidase Ab Glomerular Base Memb Ab 11/04/18 11/04/18 11/05/18 16:41 22:14 05:54 WBC RBC Hgb Hct MCV MCH MCHC RDW Plt Count MPV Absolute Neuts (auto) Neutrophils % Lymphocytes % Monocytes % Eosinophils % Basophils % Nucleated RBC % Puncture Site ABG pH ABG pCO2 at Pt Temp ABG pO2 at Pt Temp ABG HCO3 ABG O2 Sat (Measured) ABG O2 Content ABG Base Excess Chris Test O2 Delivery Device Oxygen Flow Rate Sodium Potassium Chloride Carbon Dioxide Anion Gap BUN Creatinine Creat Clearance w eGFR POC Glucometer 286 365 243 Random Glucose Hemoglobin A1c % Calcium Magnesium Total Bilirubin AST ALT Alkaline Phosphatase Total Protein Albumin c-ANCA Proteinase 3 (PR3) p-ANCA Atypical p-ANCA Myeloperoxidase Ab Glomerular Base Memb Ab 11/05/18 11/05/18 06:00 06:00 WBC 6.0 RBC 3.33 L Hgb 10.5 L Hct 31.3 L MCV 94.1 MCH 31.5 MCHC 33.4 RDW 12.2 Plt Count 147 MPV 10.8 Absolute Neuts (auto) 3.9 Neutrophils % 64.8 Lymphocytes % 22.8 D Monocytes % 9.0 Eosinophils % 2.8 Basophils % 0.6 Nucleated RBC % 0 Puncture Site ABG pH ABG pCO2 at Pt Temp ABG pO2 at Pt Temp ABG HCO3 ABG O2 Sat (Measured) ABG O2 Content ABG Base Excess Chris Test O2 Delivery Device Oxygen Flow Rate Sodium 133 L Potassium 4.2 Chloride 99 Carbon Dioxide 23 Anion Gap 11 BUN 28 H Creatinine 1.2 Creat Clearance w eGFR 43.91 POC Glucometer Random Glucose 278 H Hemoglobin A1c % Calcium 9.2 Magnesium 1.8 Total Bilirubin 0.7 AST 56 H ALT 47 Alkaline Phosphatase 69 Total Protein 7.5 Albumin 3.6 c-ANCA Proteinase 3 (PR3) p-ANCA Atypical p-ANCA Myeloperoxidase Ab Glomerular Base Memb Ab Active Medications Generic Name Dose Route Start Last Admin Trade Name Freq PRN Reason Stop Dose Admin Albuterol/Ipratropium 1 amp 11/04/18 12:02 Duoneb - NEB Q4H PRN SHORTNESS OF BREATH Atorvastatin Calcium 10 mg 11/03/18 22:00 11/04/18 22:22 Lipitor - PO 10 mg HS SU Administration Heparin Sodium (Porcine) 5,000 unit 11/03/18 22:00 11/05/18 05:56 Heparin - SQ 5,000 unit TID SU Administration Azithromycin 500 mg in 250 mls @ 250 mls/hr 11/04/18 10:00 11/04/18 10:52 Zithromax 500mg Ivpb (Pre-Docked) IVPB 250 mls/hr DAILY SU Administration Ceftriaxone Sodium 1 gm/ 50 mls @ 100 mls/hr 11/04/18 10:00 11/04/18 10:50 Dextrose IVPB 100 mls/hr DAILY SU Administration Protocol Insulin Aspart 1 vial 11/04/18 22:00 11/04/18 22:21 Novolog Vial Sliding Scale - SQ 8 units HS SU Administration Protocol Insulin Aspart 1 vial 11/05/18 07:00 11/05/18 07:28 Novolog Vial Sliding Scale - SQ 4 units TIDAC SU Administration Protocol Levothyroxine Sodium 50 mcg 11/04/18 07:00 11/05/18 07:28 Synthroid - PO 50 mcg DAILY@0700 SU Administration ASSESSMENT/PLAN: Patient is a 73 year old female with past medical history of HTN, DM, hypothyroidism, HLD, ventral hernia presenting to ED for near-syncope. Patient scheduled for a ventral hernia repair but has been having severe abdominal pain and a near syncopal episode at home. patient had a pre op workup up a few days prior and reported to be within normal limits. Patient transferred from [facility] to [facility] for emergent TDC placement for HD. She is now s/p HD with resolution of hyperkalemia and downtrending serum Creatinine. CV: Hypertension. oliverio inhibitor d/c secondary to kidney function. She was also slightly hypotensive on admission and her cardiac medications are on hold. Junctional bradycardia on admission, resolved secondary to K in the 7s Heart rhythm normalized after K corrected Hyperlipidemia, on lipitor 10mg Renal: LOPEZ with hyperkalemia, resolved s/p HD. continue to trend creatinine and electrolytes pt has good urine outptut renal following left groin shiley removed Endo: Diabetes, elevated Dr. Baxter following. On Novolog, gvien levemir adjusted antibiotics to be mixed in NS not D5 please check blood sugars q4 x 24 hours then ac/hs when <200 pre meal. Pulm: B/L pleural effusions continue Azithromycin and Ceftriaxone. Monitor labs. vitals. tolerating room air. Pulm following. notes reviewed Endo hypothyroidism synthroid 50mcg daily fen tolerating po monitor electrolytes prophy: heparin SC TID OOB to chair DISPO: requires inpatient hospitalization Visit type - Emergency Visit Emergency Visit: Yes ED Registration Date: 11/01/18 Care time: The patient presented to the Emergency Department on the above date and was hospitalized for further evaluation of their emergent condition. - New Patient This patient is new to me today: No - Critical Care Critical Care patient: No - Discharge Referral Referred to [facility] Med P.C.: No
[2018-11-05] MEDS ORDERED: cefTRIAXone SODIUM 1 GM VIAL ONE (10:07)
[2018-11-05] MEDS ORDERED: DEXTROSE 5%-WATER - 50 ML IVPB ONE (10:07)
[2018-11-05] MEDS: CEFTRIAXONE 1 GM in DEXTROSE 5%-WATER - 50 ML IVPB SCH (10:08)
--- NOTE | 2018-11-05 10:15 | PN ---
Progress Note, Physician History of Present Illness: pulmonary alert,comfortable,-resp distress. - Current Medication List Current Medications: Active Medications Albuterol/Ipratropium (Duoneb -) 1 amp NEB Q4H PRN PRN Reason: SHORTNESS OF BREATH Atorvastatin Calcium (Lipitor -) 10 mg PO HS [facility] Last Admin: 11/04/18 22:22 Dose: 10 mg Heparin Sodium (Porcine) (Heparin -) 5,000 unit SQ TID [facility] Last Admin: 11/05/18 05:56 Dose: 5,000 unit Azithromycin (Zithromax 500mg Ivpb (Pre-Docked)) 500 mg in 250 mls @ 250 mls/ hr IVPB DAILY [facility] Last Admin: 11/04/18 10:52 Dose: 250 mls/hr Ceftriaxone Sodium 1 gm/ (Dextrose) 50 mls @ 100 mls/hr IVPB DAILY [facility]; Protocol Last Admin: 11/05/18 10:08 Dose: 100 mls/hr Insulin Aspart (Novolog Vial Sliding Scale -) 1 vial SQ HS [facility]; Protocol Last Admin: 11/04/18 22:21 Dose: 8 units Insulin Aspart (Novolog Vial Sliding Scale -) 1 vial SQ TIDAC [facility]; Protocol Last Admin: 11/05/18 07:28 Dose: 4 units Levothyroxine Sodium (Synthroid -) 50 mcg PO DAILY@0700 [facility] Last Admin: 11/05/18 07:28 Dose: 50 mcg - Objective Vital Signs: Vital Signs Temperature 98.3 F 11/05/18 06:00 Pulse Rate 89 11/05/18 06:00 Respiratory Rate 20 11/05/18 06:00 Blood Pressure 117/59 L 11/05/18 06:00 O2 Sat by Pulse Oximetry (%) 99 11/04/18 21:00 Constitutional: Yes: Well Nourished, Calm Eyes: Yes: WNL HENT: Yes: WNL Neck: Yes: WNL Cardiovascular: Yes: Regular Rate and Rhythm, S1, S2 Respiratory: Yes: Rales (crackles r 1/3 up) Gastrointestinal: Yes: Normal Bowel Sounds, Soft Extremities: Yes: WNL Edema: No Labs: CBC, BMP 11/05/18 06:00 11/05/18 06:00 INR, PTT INR 1.14 (0.83-1.09) H 11/01/18 16:30 Laboratory Tests 11/04/18 12:21 ABG pH 7.43 ABG pCO2 at Pt Temp 32.1 L ABG pO2 at Pt Temp 66.1 L ABG HCO3 21.0 L ABG O2 Sat (Measured) 92.6 L O2 Delivery Device Room air Oxygen Flow Rate 21% Problem List - Problems (1) Hypoxemia Code(s): R09.02 - HYPOXEMIA (2) LOPEZ (acute kidney injury) Code(s): N17.9 - ACUTE KIDNEY FAILURE, UNSPECIFIED (3) Bradycardia Code(s): R00.1 - BRADYCARDIA, UNSPECIFIED (4) Diabetes mellitus Code(s): E11.9 - TYPE 2 DIABETES MELLITUS WITHOUT COMPLICATIONS Qualifiers: Diabetes mellitus type: type 2 Qualified Code(s): E11.9 - Type 2 diabetes mellitus without complications (5) HTN (hypertension) Code(s): I10 - ESSENTIAL (PRIMARY) HYPERTENSION Qualifiers: Hypertension type: essential hypertension Qualified Code(s): I10 - Essential (primary) hypertension (6) Hypercholesteremia Code(s): E78.0 - PURE HYPERCHOLESTEROLEMIA * DO NOT USE * (7) Pneumonia Code(s): J18.9 - PNEUMONIA, UNSPECIFIED ORGANISM Assessment/Plan ASSESSMENT AND PLAN: Junctional Bradycardia resolved Hyperkalemia improved Acute Kidney Injury requiring acute HD Pneumonia HTN DM Hyperlipidemia Hypothyroidism r/o Obstructive Sleep Apnea - monitor urine output, creatinine - antibiotics - DVT prophylaxis - outpt PSG - inhaled bronchodilators - abg on ra DR LARSON
--- NOTE | 2018-11-05 10:18 | PN ---
Progress Note, Physician History of Present Illness: No events No CV complaints Tele: ST to 120s - Current Medication List Current Medications: Active Medications Albuterol/Ipratropium (Duoneb -) 1 amp NEB Q4H PRN PRN Reason: SHORTNESS OF BREATH Atorvastatin Calcium (Lipitor -) 10 mg PO HS [facility] Last Admin: 11/04/18 22:22 Dose: 10 mg Heparin Sodium (Porcine) (Heparin -) 5,000 unit SQ TID [facility] Last Admin: 11/05/18 05:56 Dose: 5,000 unit Azithromycin (Zithromax 500mg Ivpb (Pre-Docked)) 500 mg in 250 mls @ 250 mls/ hr IVPB DAILY [facility] Last Admin: 11/04/18 10:52 Dose: 250 mls/hr Ceftriaxone Sodium 1 gm/ (Dextrose) 50 mls @ 100 mls/hr IVPB DAILY [facility]; Protocol Last Admin: 11/05/18 10:08 Dose: 100 mls/hr Insulin Aspart (Novolog Vial Sliding Scale -) 1 vial SQ HS [facility]; Protocol Last Admin: 11/04/18 22:21 Dose: 8 units Insulin Aspart (Novolog Vial Sliding Scale -) 1 vial SQ TIDAC [facility]; Protocol Last Admin: 11/05/18 07:28 Dose: 4 units Levothyroxine Sodium (Synthroid -) 50 mcg PO DAILY@0700 [facility] Last Admin: 11/05/18 07:28 Dose: 50 mcg - Objective Vital Signs: Vital Signs Temperature 98.3 F 11/05/18 06:00 Pulse Rate 89 11/05/18 06:00 Respiratory Rate 20 11/05/18 06:00 Blood Pressure 117/59 L 11/05/18 06:00 O2 Sat by Pulse Oximetry (%) 99 11/04/18 21:00 Constitutional: Yes: No Distress Cardiovascular: Yes: Regular Rate and Rhythm Respiratory: Yes: CTA Bilaterally Edema: No Labs: CBC, BMP 11/05/18 06:00 11/05/18 06:00 INR, PTT INR 1.14 (0.83-1.09) H 11/01/18 16:30 Assessment/Plan a/p: 73 f hx htn, hld, dm, hypothyroid, here with syncope. 1. Syncope, bradycardia, hypotension: -As per prior notes: syncope seems to be vagal episode from straining for BM and abd pain -she also had junctional bradycardia likely 2/2 to k in 7's. After HD to correct K her hr and rhythm normalized. 2. Manuel, hyperkalemia: -Most recent K normal at 4.2 3. n/v, abd pain: -resolved 4.HTN: -holding home meds for now given hypotension initially -BP stable
[2018-11-05] MEDS: AZITHROMYCIN IVPB 500 MG/250 ML BAG IVPB SCH (11:44)
[2018-11-05] MEDS ORDERED: PANTOPRAZOLE 40 MG TABLET (FP) PO ONE (12:41)
[2018-11-05] MEDS ORDERED: LACTOBACILLUS ACIDOPHILUS 1 TABLET PO ONE (12:43)
[2018-11-05] MEDS ORDERED: INSULIN (LEVEMIR) 100 UNITS/ML UNITS SQ ONE (13:00)
[2018-11-05] MEDS ORDERED: INSULIN (NOVOLOG) ASPART 100 UNITS/ML 10ML VIAL SQ ONE ×2 (13:02→17:45)
[2018-11-05] MEDS ORDERED: FAMOTIDINE 20 MG/50 ML IVPB 20 MG/50 ML MG IVPB ONE (13:50)
[2018-11-05] MEDS ORDERED: SUCRALFATE 1 GM/10 ML UNIT DOSE CUPS PO SCH (14:00)
--- NOTE | 2018-11-05 15:21 | PN ---
Progress Note, Physician History of Present Illness: Pt seen and examined at bedside. She is awake and alert. She does have some abdominal discomfort. - Current Medication List Current Medications: Active Medications Albuterol/Ipratropium (Duoneb -) 1 amp NEB Q4H PRN PRN Reason: SHORTNESS OF BREATH Atorvastatin Calcium (Lipitor -) 10 mg PO HS [facility] Last Admin: 11/04/18 22:22 Dose: 10 mg Heparin Sodium (Porcine) (Heparin -) 5,000 unit SQ TID [facility] Last Admin: 11/05/18 14:39 Dose: 5,000 unit Azithromycin 500 mg/ Sodium (Chloride) 250 mls @ 250 mls/hr IVPB DAILY [facility] Ceftriaxone Sodium 1 gm/ (Sodium Chloride) 50 mls @ 100 mls/hr IVPB DAILY [facility]; Protocol Insulin Aspart (Novolog Vial Sliding Scale -) 1 vial SQ HS [facility]; Protocol Last Admin: 11/04/18 22:21 Dose: 8 units Insulin Aspart (Novolog Vial Sliding Scale -) 1 vial SQ TIDAC [facility]; Protocol Last Admin: 11/05/18 11:45 Dose: 12 units Levothyroxine Sodium (Synthroid -) 50 mcg PO DAILY@0700 [facility] Last Admin: 11/05/18 07:28 Dose: 50 mcg - Objective Vital Signs: Vital Signs Temperature 98.2 F 11/05/18 14:16 Pulse Rate 101 H 11/05/18 14:16 Respiratory Rate 18 11/05/18 14:16 Blood Pressure 147/68 11/05/18 14:16 O2 Sat by Pulse Oximetry (%) 99 11/05/18 10:00 Constitutional: Yes: Calm Eyes: Yes: Conjunctiva Clear HENT: Yes: Atraumatic Neck: Yes: Supple Cardiovascular: Yes: S1, S2 Respiratory: Yes: CTA Bilaterally Gastrointestinal: Yes: Soft, Tenderness Genitourinary: Yes: WNL Musculoskeletal: Yes: WNL Edema: No Neurological: Yes: Oriented Psychiatric: Yes: Oriented Labs: CBC, BMP 11/05/18 06:00 11/05/18 06:00 INR, PTT INR 1.14 (0.83-1.09) H 11/01/18 16:30 Problem List - Problems (1) LOPEZ (acute kidney injury) Code(s): N17.9 - ACUTE KIDNEY FAILURE, UNSPECIFIED (2) Bradycardia Code(s): R00.1 - BRADYCARDIA, UNSPECIFIED (3) Hyperkalemia Code(s): E87.5 - HYPERKALEMIA (4) Hypotension Code(s): I95.9 - HYPOTENSION, UNSPECIFIED Qualifiers: Hypotension type: unspecified hypotension type Qualified Code(s): I95.9 - Hypotension, unspecified (5) Diabetes mellitus Code(s): E11.9 - TYPE 2 DIABETES MELLITUS WITHOUT COMPLICATIONS Qualifiers: Diabetes mellitus type: type 2 Qualified Code(s): E11.9 - Type 2 diabetes mellitus without complications Assessment/Plan Current Medications Generic Name Dose Route Start Last Admin Trade Name Freq PRN Reason Stop Dose Admin Albuterol/Ipratropium 1 amp 11/04/18 12:02 Duoneb - NEB Q4H PRN SHORTNESS OF BREATH Atorvastatin Calcium 10 mg 11/03/18 22:00 11/04/18 22:22 Lipitor - PO 10 mg HS SU Administration Heparin Sodium (Porcine) 5,000 unit 11/03/18 22:00 11/05/18 14:39 Heparin - SQ 5,000 unit TID SU Administration Azithromycin 500 mg/ Sodium 250 mls @ 250 mls/hr 11/06/18 10:00 Chloride IVPB DAILY SU Ceftriaxone Sodium 1 gm/ 50 mls @ 100 mls/hr 11/06/18 10:00 Sodium Chloride IVPB DAILY [facility] Protocol Insulin Aspart 1 vial 11/04/18 22:00 11/04/18 22:21 Novolog Vial Sliding Scale - SQ 8 units HS SU Administration Protocol Insulin Aspart 1 vial 11/05/18 07:00 11/05/18 11:45 Novolog Vial Sliding Scale - SQ 12 units TIDAC SU Administration Protocol Levothyroxine Sodium 50 mcg 11/04/18 07:00 11/05/18 07:28 Synthroid - PO 50 mcg DAILY@0700 SU Administration Laboratory Tests 11/01/18 11/01/18 11/02/18 20:20 20:20 05:30 Total Protein (PEP) 6.6 Albumin (PEP) 3.4 Globulin 3.2 Albumin/Globulin Ratio 1.1 Beta Globulins 1.3 SHANTA M-Sharad Not observed [place] Screen c-ANCA Proteinase 3 (PR3) p-ANCA Atypical p-ANCA Myeloperoxidase Ab Double Strand DNA Ab Glomerular Base Memb Ab Hep Bs Antigen Negative Hep Bs Antibody Non reactive Hep B Core Total Ab Negative Hep C Ab Diagnostic <0.1 11/02/18 05:30 Total Protein (PEP) Albumin (PEP) Globulin Albumin/Globulin Ratio Beta Globulins SHANTA M-Sharad [place] Screen Negative c-ANCA <1:20 Proteinase 3 (PR3) <3.5 p-ANCA <1:20 Atypical p-ANCA <1:20 Myeloperoxidase Ab <9.0 Double Strand DNA Ab <1 Glomerular Base Memb Ab 2 Hep Bs Antigen Hep Bs Antibody Hep B Core Total Ab Hep C Ab Diagnostic Impression 1. LOPEZ 2. hyperkalemia 3. metabolic acidosis 4. DM 5. hernia 6. hypothyroidism Plan - renal function stable - bp stable - keep oliverio on hold as bp is actually borderline low - surgery follow up - potassium improved - renal workup negative so far - repeat ua - discussed with family
[2018-11-05 17:26] LABS: PH,URINE 5.5 (5.0-8.0); URINE APPEARANCE CLEAR; URINE BILIRUBIN NEGATIVE (NEGATIVE); URINE COLOR YELLOW; URINE GLUCOSE (UA) 3+ (NEGATIVE); URINE KETONE NEGATIVE (NEGATIVE); URINE LEUK ESTERASE NEGATIVE (NEGATIVE); URINE NITRITE NEGATIVE (NEGATIVE); URINE PROTEIN NEGATIVE (NEGATIVE); URINE UROBILINOGEN 0.2 mg/dL (0.2-1.0)
--- NOTE | 2018-11-05 18:33 | PN ---
Progress Note (short form) - Note Progress Note: C/O frequent bowel movements No abd pain No N/V Improving apetite Vital Signs Period Temp Pulse Resp BP Sys/[place] Pulse Ox Last 24 Hr 98.1 F-98.7 F 54-101 18-22 105-147/58-68 99-99 PE: AOx3 Neck: Supple, No JVD HEENT: PERRL, EOMI Lungs: CTA CVS: S1S2 Abd: Benign EXt: No edema Neuro: No focal deficit CMP Sodium 133 mmol/L (136-145) L 11/05/18 06:00 Potassium 4.2 mmol/L (3.5-5.1) 11/05/18 06:00 Chloride 99 mmol/L (98-107) 11/05/18 06:00 Carbon Dioxide 23 mmol/L (21-32) 11/05/18 06:00 Anion Gap 11 MMOL/L (8-16) 11/05/18 06:00 BUN 28 mg/dL (7-18) H 11/05/18 06:00 Creatinine 1.2 mg/dL (0.55-1.3) 11/05/18 06:00 Creat Clearance w eGFR 43.91 (>60) 11/05/18 06:00 POC Glucometer 483 UNITS (80-120) 11/05/18 17:03 Random Glucose 278 mg/dL (74-106) H 11/05/18 06:00 Hemoglobin A1c % 7.0 % (4.2-6.3) H 11/04/18 05:30 Lactic Acid 2.1 mmol/L (0.4-2.0) H 11/01/18 23:10 Calcium 9.2 mg/dL (8.5-10.1) 11/05/18 06:00 Phosphorus 3.2 mg/dL (2.5-4.9) 11/03/18 05:30 Magnesium 1.8 mg/dL (1.8-2.4) 11/05/18 06:00 Total Bilirubin 0.7 mg/dL (0.2-1) 11/05/18 06:00 AST 56 U/L (15-37) H 11/05/18 06:00 ALT 47 U/L (13-61) 11/05/18 06:00 Alkaline Phosphatase 69 U/L (45-117) 11/05/18 06:00 Troponin I 0.07 ng/ml (0.00-0.05) H 11/01/18 16:30 Total Protein 7.5 g/dl (6.4-8.2) 11/05/18 06:00 Total Protein (PEP) 6.6 g/dL (6.0-8.5) 11/02/18 05:30 Albumin 3.6 g/dl (3.4-5.0) 11/05/18 06:00 Albumin (PEP) 3.4 gm/dl (2.9-4.4) 11/02/18 05:30 Globulin 3.2 g/dL (2.2-3.9) 11/02/18 05:30 Albumin/Globulin Ratio 1.1 (0.7-1.7) 11/02/18 05:30 Beta Globulins 1.3 gm/dL (0.7-1.3) 11/02/18 05:30 TSH 7.86 uIU/ml (0.358-3.74) H 11/01/18 11:40 Free T3 2.5 pg/ml (2.0-4.4) 11/01/18 20:35 Current Medications Generic Name Dose Route Start Last Admin Trade Name Freq PRN Reason Stop Dose Admin Albuterol/Ipratropium 1 amp 11/04/18 12:02 Duoneb - NEB Q4H PRN SHORTNESS OF BREATH Atorvastatin Calcium 10 mg 11/03/18 22:00 11/04/18 22:22 Lipitor - PO 10 mg HS SU Administration Heparin Sodium (Porcine) 5,000 unit 11/03/18 22:00 11/05/18 14:39 Heparin - SQ 5,000 unit TID SU Administration Azithromycin 500 mg/ Sodium 250 mls @ 250 mls/hr 11/06/18 10:00 Chloride IVPB DAILY SU Ceftriaxone Sodium 1 gm/ 50 mls @ 100 mls/hr 11/06/18 10:00 Sodium Chloride IVPB DAILY [facility] Protocol Insulin Aspart 1 vial 11/04/18 22:00 11/04/18 22:21 Novolog Vial Sliding Scale - SQ 8 units HS SU Administration Protocol Insulin Aspart 1 vial 11/05/18 07:00 11/05/18 17:04 Novolog Vial Sliding Scale - SQ 12 units TIDAC SU Administration Protocol Levothyroxine Sodium 50 mcg 11/04/18 07:00 11/05/18 07:28 Synthroid - PO 50 mcg DAILY@0700 SU Administration AP: Pneumonia LOPEZ Hyperkalemia T2DM: A1c 6.6 Hypothyroidism IV Abx Bronchodilators BGM QACHS Levemir 20 units daily for now Increase Novolog SS coverage Discusse with family at bedside Will f/u Problem List - Problems (1) LOPEZ (acute kidney injury) Code(s): N17.9 - ACUTE KIDNEY FAILURE, UNSPECIFIED (2) Bradycardia Code(s): R00.1 - BRADYCARDIA, UNSPECIFIED (3) Hyperkalemia Code(s): E87.5 - HYPERKALEMIA (4) Hypotension Code(s): I95.9 - HYPOTENSION, UNSPECIFIED Qualifiers: Hypotension type: unspecified hypotension type Qualified Code(s): I95.9 - Hypotension, unspecified (5) Hypoxemia Code(s): R09.02 - HYPOXEMIA (6) Diabetes mellitus Code(s): E11.9 - TYPE 2 DIABETES MELLITUS WITHOUT COMPLICATIONS Qualifiers: Diabetes mellitus type: type 2 Qualified Code(s): E11.9 - Type 2 diabetes mellitus without complications
[2018-11-05] MEDS: ATORVASTATIN CA 10 MG TABLET (FP) PO SCH (21:30)
[2018-11-06] MEDS: HEPARIN NA (PORCINE) 5,000 UNITS/ML 1ML VIAL SQ SCH ×3 (05:41→21:48)
[2018-11-06] MEDS: LEVOTHYROXINE NA 50 MCG TABLET (FP) PO SCH (06:02)
[2018-11-06] MEDS: INSULIN (LEVEMIR) 100 UNITS/ML UNITS SQ SCH (06:30)
[2018-11-06] MEDS: INSULIN SLIDING SCALE (NOVOLOG) 1 VIAL SQ SCH ×4 (06:34→23:00)
[2018-11-06] MEDS: ALBUTEROL SO4 2.5/IPRATROPIUM 0.5 INH SOL 3 ML VIAL.NEB. NEB PRN (07:36)
[2018-11-06] MEDS ORDERED: SODIUM CHLORIDE 50 ML IVPB ONE (08:41)
[2018-11-06] MEDS ORDERED: PT OWN MED DRAWER 7, Y5N ONE (08:41)
[2018-11-06] MEDS ORDERED: cefTRIAXone SODIUM 1 GM VIAL ONE (08:41)
--- NOTE | 2018-11-06 09:50 | PN ---
Progress Note, Physician History of Present Illness: No CV complaints overnight FAmily at bedside No dizziness Tele: NSR 90s, ST 110 - Current Medication List Current Medications: Active Medications Albuterol/Ipratropium (Duoneb -) 1 amp NEB Q4H PRN PRN Reason: SHORTNESS OF BREATH Last Admin: 11/06/18 07:36 Dose: 1 amp Atorvastatin Calcium (Lipitor -) 10 mg PO HS [facility] Last Admin: 11/05/18 21:30 Dose: 10 mg Heparin Sodium (Porcine) (Heparin -) 5,000 unit SQ TID [facility] Last Admin: 11/06/18 05:41 Dose: 5,000 unit Azithromycin 500 mg/ Sodium (Chloride) 250 mls @ 250 mls/hr IVPB DAILY [facility] Ceftriaxone Sodium 1 gm/ (Sodium Chloride) 50 mls @ 100 mls/hr IVPB DAILY [facility]; Protocol Insulin Aspart (Novolog Vial Sliding Scale -) 1 vial SQ HS [facility]; Protocol Last Admin: 11/05/18 21:30 Dose: 8 units Insulin Aspart (Novolog Vial Sliding Scale -) 1 vial SQ TIDAC [facility]; Protocol Last Admin: 11/06/18 06:34 Dose: 14 units Insulin Detemir (Levemir Vial) 20 units SQ DAILY@0700 [facility] Last Admin: 11/06/18 06:30 Dose: 20 units Levothyroxine Sodium (Synthroid -) 50 mcg PO DAILY@0700 [facility] Last Admin: 11/06/18 06:02 Dose: 50 mcg - Objective Vital Signs: Vital Signs Temperature 98.0 F 11/06/18 06:00 Pulse Rate 82 11/06/18 06:00 Respiratory Rate 20 11/06/18 06:00 Blood Pressure 118/56 L 11/06/18 06:00 O2 Sat by Pulse Oximetry (%) 95 11/05/18 21:00 Constitutional: Yes: Well Nourished, No Distress Cardiovascular: Yes: Regular Rate and Rhythm Respiratory: Yes: CTA Bilaterally Edema: No Labs: CBC, BMP 11/05/18 06:00 11/05/18 06:00 INR, PTT INR 1.14 (0.83-1.09) H 11/01/18 16:30 Assessment/Plan a/p: 73 f hx htn, hld, dm, hypothyroid, here with syncope. 1. Syncope, bradycardia, hypotension: -As per prior notes: syncope seems to be vagal episode from straining for BM and abd pain -she also had junctional bradycardia likely 2/2 to k in 7's. After HD to correct K her hr and rhythm normalized. 2. Manuel, hyperkalemia: -Most recent K normal at 4.2 3. n/v, abd pain: -resolved 4.HTN: -holding home meds for now given hypotension initially -BP stable
[2018-11-06] MEDS: CEFTRIAXONE 1 GM in SODIUM CHLORIDE 50 ML IVPB SCH (10:01)
--- NOTE | 2018-11-06 10:09 | PN ---
Progress Note, Physician History of Present Illness: PULMONARY ALERT,OOB-CHAIR,FEELING BETTER,O2 SAT 98% ON NASAL CANNULA - Current Medication List Current Medications: Active Medications Albuterol/Ipratropium (Duoneb -) 1 amp NEB Q4H PRN PRN Reason: SHORTNESS OF BREATH Last Admin: 11/06/18 07:36 Dose: 1 amp Atorvastatin Calcium (Lipitor -) 10 mg PO HS [facility] Last Admin: 11/05/18 21:30 Dose: 10 mg Heparin Sodium (Porcine) (Heparin -) 5,000 unit SQ TID [facility] Last Admin: 11/06/18 05:41 Dose: 5,000 unit Azithromycin 500 mg/ Sodium (Chloride) 250 mls @ 250 mls/hr IVPB DAILY SU Ceftriaxone Sodium 1 gm/ (Sodium Chloride) 50 mls @ 100 mls/hr IVPB DAILY [facility]; Protocol Last Admin: 11/06/18 10:01 Dose: 100 mls/hr Insulin Aspart (Novolog Vial Sliding Scale -) 1 vial SQ HS [facility]; Protocol Last Admin: 11/05/18 21:30 Dose: 8 units Insulin Aspart (Novolog Vial Sliding Scale -) 1 vial SQ TIDAC [facility]; Protocol Last Admin: 11/06/18 06:34 Dose: 14 units Insulin Detemir (Levemir Vial) 20 units SQ DAILY@0700 [facility] Last Admin: 11/06/18 06:30 Dose: 20 units Levothyroxine Sodium (Synthroid -) 50 mcg PO DAILY@0700 [facility] Last Admin: 11/06/18 06:02 Dose: 50 mcg - Objective Vital Signs: Vital Signs Temperature 98.0 F 11/06/18 06:00 Pulse Rate 82 11/06/18 06:00 Respiratory Rate 20 11/06/18 06:00 Blood Pressure 118/56 L 11/06/18 06:00 O2 Sat by Pulse Oximetry (%) 95 11/05/18 21:00 Constitutional: Yes: Well Nourished, Calm Eyes: Yes: WNL HENT: Yes: WNL Neck: Yes: WNL Cardiovascular: Yes: Regular Rate and Rhythm, S1, S2 Respiratory: Yes: Rales (FEW BIBASILAR CRACKLES) Gastrointestinal: Yes: Normal Bowel Sounds, Soft Extremities: Yes: WNL Edema: No Labs: CBC, BMP Laboratory Tests 11/04/18 12:21 ABG pH 7.43 ABG pCO2 at Pt Temp 32.1 L ABG pO2 at Pt Temp 66.1 L ABG HCO3 21.0 L ABG O2 Sat (Measured) 92.6 L Oxygen Flow Rate 21% Problem List - Problems (1) Hypoxemia Code(s): R09.02 - HYPOXEMIA (2) LOPEZ (acute kidney injury) Code(s): N17.9 - ACUTE KIDNEY FAILURE, UNSPECIFIED (3) Bradycardia Code(s): R00.1 - BRADYCARDIA, UNSPECIFIED (4) Diabetes mellitus Code(s): E11.9 - TYPE 2 DIABETES MELLITUS WITHOUT COMPLICATIONS Qualifiers: Diabetes mellitus type: type 2 Qualified Code(s): E11.9 - Type 2 diabetes mellitus without complications (5) HTN (hypertension) Code(s): I10 - ESSENTIAL (PRIMARY) HYPERTENSION Qualifiers: Hypertension type: essential hypertension Qualified Code(s): I10 - Essential (primary) hypertension (6) Hypercholesteremia Code(s): E78.0 - PURE HYPERCHOLESTEROLEMIA * DO NOT USE * (7) Pneumonia Code(s): J18.9 - PNEUMONIA, UNSPECIFIED ORGANISM Assessment/Plan ASSESSMENT AND PLAN: Junctional Bradycardia resolved Hyperkalemia improved Acute Kidney Injury requiring acute HD Pneumonia HTN DM Hyperlipidemia Hypothyroidism r/o Obstructive Sleep Apnea - monitor urine output, creatinine - antibiotics - DVT prophylaxis - outpt PSG - inhaled bronchodilators DR LARSON
[2018-11-06] MEDS: AZITHROMYCIN IVPB 500 MG in SODIUM CHLORIDE 250 ML IVPB SCH (11:11)
--- NOTE | 2018-11-06 12:04 | PN ---
Progress Note, Physician Chief Complaint: Ms Vila is still having pain in her lower abdomen. Otherwise she is feeling well and denies cp, sob, n/v. Tolerating diet without difficulty. - Current Medication List Current Medications: Active Medications Albuterol/Ipratropium (Duoneb -) 1 amp NEB Q4H PRN PRN Reason: SHORTNESS OF BREATH Last Admin: 11/06/18 07:36 Dose: 1 amp Atorvastatin Calcium (Lipitor -) 10 mg PO HS [facility] Last Admin: 11/05/18 21:30 Dose: 10 mg Heparin Sodium (Porcine) (Heparin -) 5,000 unit SQ TID [facility] Last Admin: 11/06/18 05:41 Dose: 5,000 unit Azithromycin 500 mg/ Sodium (Chloride) 250 mls @ 250 mls/hr IVPB DAILY [facility] Last Admin: 11/06/18 11:11 Dose: 250 mls/hr Ceftriaxone Sodium 1 gm/ (Sodium Chloride) 50 mls @ 100 mls/hr IVPB DAILY [facility]; Protocol Last Admin: 11/06/18 10:01 Dose: 100 mls/hr Insulin Aspart (Novolog Vial Sliding Scale -) 1 vial SQ HS [facility]; Protocol Last Admin: 11/05/18 21:30 Dose: 8 units Insulin Aspart (Novolog Vial Sliding Scale -) 1 vial SQ TIDAC [facility]; Protocol Last Admin: 11/06/18 11:48 Dose: 18 units Insulin Detemir (Levemir Vial) 20 units SQ DAILY@0700 [facility] Last Admin: 11/06/18 06:30 Dose: 20 units Levothyroxine Sodium (Synthroid -) 50 mcg PO DAILY@0700 [facility] Last Admin: 11/06/18 06:02 Dose: 50 mcg - Objective Vital Signs: Vital Signs Temperature 36.7 C 11/06/18 06:00 Pulse Rate 82 11/06/18 06:00 Respiratory Rate 20 11/06/18 06:00 Blood Pressure 118/56 L 11/06/18 06:00 O2 Sat by Pulse Oximetry (%) 95 11/05/18 21:00 Constitutional: Yes: Well Nourished, No Distress, Calm Cardiovascular: Yes: Regular Rate and Rhythm. No: Gallop, Murmur, Rub Respiratory: Yes: Regular, CTA Bilaterally. No: Rales, Rhonchi, Wheezes Gastrointestinal: Yes: Normal Bowel Sounds, Soft, Tenderness (slight). No: Distention Extremities: Yes: WNL Edema: No Labs: CBC, BMP 11/05/18 06:00 11/05/18 06:00 INR, PTT INR 1.14 (0.83-1.09) H 11/01/18 16:30 Problem List - Problems (1) Ventral hernia Assessment/Plan: -suspect patient had strangulation which precipitated this event -abdominal pain, nausea w/ vomiting, constipation, LOPEZ, hyperkalemia, and lactic acidosis very suspicious for strangulation -currently still with some pain but tolerating diet -medically stable -will consult surgeon as suspect this will need to be addressed Code(s): K43.9 - VENTRAL HERNIA WITHOUT OBSTRUCTION OR GANGRENE (2) Diabetes mellitus Assessment/Plan: -family is bringing patient in food, today had noodles -made family aware that patient is having hyperglycemia most likely because of this -they understand, but at this point did not appear willing to stop as saying she will not eating anything else -Dr Henry is following and note reviewed -continue insulin regimen per his recommendations -all IV medications in NS now Code(s): E11.9 - TYPE 2 DIABETES MELLITUS WITHOUT COMPLICATIONS Qualifiers: Diabetes mellitus type: type 2 Qualified Code(s): E11.9 - Type 2 diabetes mellitus without complications (3) HTN (hypertension) Assessment/Plan: -normotensive Code(s): I10 - ESSENTIAL (PRIMARY) HYPERTENSION Qualifiers: Hypertension type: essential hypertension Qualified Code(s): I10 - Essential (primary) hypertension (4) Hypercholesteremia Assessment/Plan: -continue lipitor Code(s): E78.0 - PURE HYPERCHOLESTEROLEMIA * DO NOT USE * (5) Acute respiratory failure Assessment/Plan: -secondary to acute event on admission and pneumonia -improving -pulmonary following -wean off oxygen as tolerated Code(s): J96.00 - ACUTE RESPIRATORY FAILURE, UNSP W HYPOXIA OR HYPERCAPNIA (6) Pneumonia Assessment/Plan: -continue rocephin and zithromax Code(s): J18.9 - PNEUMONIA, UNSPECIFIED ORGANISM (7) LOPEZ (acute kidney injury) Assessment/Plan: -case d/w Dr Houston -resolved Code(s): N17.9 - ACUTE KIDNEY FAILURE, UNSPECIFIED (8) Hyperkalemia Assessment/Plan: -resolved Code(s): E87.5 - HYPERKALEMIA
--- NOTE | 2018-11-06 18:01 | PN ---
Progress Note, Physician History of Present Illness: Pt seen and examined at bedside. She is awake and alert. She denies shortness of breath. - Current Medication List Current Medications: Active Medications Albuterol/Ipratropium (Duoneb -) 1 amp NEB Q4H PRN PRN Reason: SHORTNESS OF BREATH Last Admin: 11/06/18 07:36 Dose: 1 amp Atorvastatin Calcium (Lipitor -) 10 mg PO HS [facility] Last Admin: 11/05/18 21:30 Dose: 10 mg Heparin Sodium (Porcine) (Heparin -) 5,000 unit SQ TID [facility] Last Admin: 11/06/18 15:51 Dose: 5,000 unit Azithromycin 500 mg/ Sodium (Chloride) 250 mls @ 250 mls/hr IVPB DAILY [facility] Last Admin: 11/06/18 11:11 Dose: 250 mls/hr Ceftriaxone Sodium 1 gm/ (Sodium Chloride) 50 mls @ 100 mls/hr IVPB DAILY [facility]; Protocol Last Admin: 11/06/18 10:01 Dose: 100 mls/hr Insulin Aspart (Novolog Vial Sliding Scale -) 1 vial SQ HS [facility]; Protocol Last Admin: 11/05/18 21:30 Dose: 8 units Insulin Aspart (Novolog Vial Sliding Scale -) 1 vial SQ TIDAC [facility]; Protocol Last Admin: 11/06/18 17:02 Dose: 16 units Insulin Detemir (Levemir Vial) 20 units SQ DAILY@0700 [facility] Last Admin: 11/06/18 06:30 Dose: 20 units Levothyroxine Sodium (Synthroid -) 50 mcg PO DAILY@0700 [facility] Last Admin: 11/06/18 06:02 Dose: 50 mcg - Objective Vital Signs: Vital Signs Temperature 98.2 F 11/06/18 15:01 Pulse Rate 86 11/06/18 15:01 Respiratory Rate 20 11/06/18 15:01 Blood Pressure 130/59 L 11/06/18 15:01 O2 Sat by Pulse Oximetry (%) 96 11/06/18 10:00 Constitutional: Yes: Calm Eyes: Yes: Conjunctiva Clear HENT: Yes: Atraumatic Neck: Yes: Supple Cardiovascular: Yes: S1, S2 Respiratory: Yes: On Nasal O2 Gastrointestinal: Yes: Soft Genitourinary: Yes: WNL Musculoskeletal: Yes: WNL Edema: No Neurological: Yes: Oriented Psychiatric: Yes: Oriented Labs: CBC, BMP 11/05/18 06:00 11/05/18 06:00 INR, PTT INR 1.14 (0.83-1.09) H 11/01/18 16:30 Problem List - Problems (1) LOPEZ (acute kidney injury) Code(s): N17.9 - ACUTE KIDNEY FAILURE, UNSPECIFIED (2) Bradycardia Code(s): R00.1 - BRADYCARDIA, UNSPECIFIED (3) Hyperkalemia Code(s): E87.5 - HYPERKALEMIA (4) Hypotension Code(s): I95.9 - HYPOTENSION, UNSPECIFIED Qualifiers: Hypotension type: unspecified hypotension type Qualified Code(s): I95.9 - Hypotension, unspecified (5) Diabetes mellitus Code(s): E11.9 - TYPE 2 DIABETES MELLITUS WITHOUT COMPLICATIONS Qualifiers: Diabetes mellitus type: type 2 Qualified Code(s): E11.9 - Type 2 diabetes mellitus without complications Assessment/Plan Current Medications Generic Name Dose Route Start Last Admin Trade Name Freq PRN Reason Stop Dose Admin Albuterol/Ipratropium 1 amp 11/04/18 12:02 11/06/18 07:36 Duoneb - NEB 1 amp Q4H PRN Administration SHORTNESS OF BREATH Atorvastatin Calcium 10 mg 11/03/18 22:00 11/05/18 21:30 Lipitor - PO 10 mg HS SU Administration Heparin Sodium (Porcine) 5,000 unit 11/03/18 22:00 11/06/18 15:51 Heparin - SQ 5,000 unit TID SU Administration Azithromycin 500 mg/ Sodium 250 mls @ 250 mls/hr 11/06/18 10:00 11/06/18 11: 11 Chloride IVPB 250 mls/hr DAILY [facility] Administration Ceftriaxone Sodium 1 gm/ 50 mls @ 100 mls/hr 11/06/18 10:00 11/06/18 10:01 Sodium Chloride IVPB 100 mls/hr DAILY [facility] Administration Protocol Insulin Aspart 1 vial 11/04/18 22:00 11/05/18 21:30 Novolog Vial Sliding Scale - SQ 8 units HS SU Administration Protocol Insulin Aspart 1 vial 11/05/18 18:36 11/06/18 17:02 Novolog Vial Sliding Scale - SQ 16 units TIDAC SU Administration Protocol Insulin Detemir 20 units 11/06/18 07:00 11/06/18 06:30 Levemir Vial SQ 20 units DAILY@0700 [facility] Administration Levothyroxine Sodium 50 mcg 11/04/18 07:00 11/06/18 06:02 Synthroid - PO 50 mcg DAILY@0700 [facility] Administration Impression 1. LOPEZ 2. hyperkalemia 3. metabolic acidosis 4. DM 5. hernia 6. hypothyroidism Plan - check bmp in am - am cxr - keep oliverio on hold - surgery follow up - renal workup negative so far - repeat ua - discussed with family
[2018-11-06] MEDS: ATORVASTATIN CA 10 MG TABLET (FP) PO SCH (21:48)
[2018-11-07] MEDS: HEPARIN NA (PORCINE) 5,000 UNITS/ML 1ML VIAL SQ SCH ×3 (06:04→21:10)
[2018-11-07] MEDS: LEVOTHYROXINE NA 50 MCG TABLET (FP) PO SCH (06:05)
[2018-11-07] MEDS: INSULIN (LEVEMIR) 100 UNITS/ML UNITS SQ SCH ×2 (06:05→21:10)
[2018-11-07] MEDS: INSULIN SLIDING SCALE (NOVOLOG) 1 VIAL SQ SCH ×5 (06:21→21:10)
[2018-11-07 06:23] LABS: BASO % 0.6 % (0-2.0); HEMATOCRIT 31.5 % (32.4-45.2); HEMOGLOBIN 10.6 GM/dL (10.7-15.3); LYMPH % 24.5 % (8-40); MCH 31.9 pg (25.7-33.7); MCHC 33.7 g/dl (32.0-36.0); MEAN CELL VOLUME 94.5 fl (80-96); MEAN PLT VOLUME 10.9 fl (7.5-11.1); MONO % 9.7 % (3.8-10.2); NEUT % 62.2 % (42.8-82.8); PLATELET COUNT 154 K/MM3 (134-434); RBC 3.33 M/mm3 (3.60-5.2); RDW 12.7 % (11.6-15.6); WHITE BLOOD COUNT 7.1 K/mm3 (4.0-10.0)
[2018-11-07 06:50] LABS: ANION GAP 11 MMOL/L (8-16); BLOOD UREA NITROGEN 27 mg/dL (7-18); CHLORIDE 103 mmol/L (98-107); CO2 20 mmol/L (21-32); CREATININE 1.2 mg/dL (0.55-1.3); MAGNESIUM 1.6 mg/dL (1.8-2.4); PHOSPHOROUS 4.2 mg/dL (2.5-4.9); POTASSIUM 4.8 mmol/L (3.5-5.1); SODIUM 135 mmol/L (136-145)
[2018-11-07] MEDS: ALBUTEROL SO4 2.5/IPRATROPIUM 0.5 INH SOL 3 ML VIAL.NEB. NEB PRN ×2 (07:42→20:49)
[2018-11-07 07:43] LABS: GLUCOSE,RANDOM 391 mg/dL (74-106)
--- NOTE | 2018-11-07 08:28 | PN ---
Progress Note, Physician Chief Complaint: no chest pain or SOB TELE: NSR - Current Medication List Current Medications: Active Medications Albuterol/Ipratropium (Duoneb -) 1 amp NEB Q4H PRN PRN Reason: SHORTNESS OF BREATH Last Admin: 11/07/18 07:42 Dose: 1 amp Atorvastatin Calcium (Lipitor -) 10 mg PO HS [facility] Last Admin: 11/06/18 21:48 Dose: 10 mg Heparin Sodium (Porcine) (Heparin -) 5,000 unit SQ TID [facility] Last Admin: 11/07/18 06:04 Dose: Not Given Azithromycin 500 mg/ Sodium (Chloride) 250 mls @ 250 mls/hr IVPB DAILY [facility] Last Admin: 11/06/18 11:11 Dose: 250 mls/hr Ceftriaxone Sodium 1 gm/ (Sodium Chloride) 50 mls @ 100 mls/hr IVPB DAILY [facility]; Protocol Last Admin: 11/06/18 10:01 Dose: 100 mls/hr Insulin Aspart (Novolog Vial Sliding Scale -) 1 vial SQ HS [facility]; Protocol Last Admin: 11/06/18 23:00 Dose: 8 units Insulin Aspart (Novolog Vial Sliding Scale -) 1 vial SQ TIDAC [facility]; Protocol Last Admin: 11/07/18 06:21 Dose: Not Given Insulin Detemir (Levemir Vial) 20 units SQ DAILY@0700 [facility] Last Admin: 11/07/18 06:05 Dose: Not Given Levothyroxine Sodium (Synthroid -) 50 mcg PO DAILY@0700 [facility] Last Admin: 11/07/18 06:05 Dose: Not Given - Objective Vital Signs: Vital Signs Temperature 98.2 F 11/07/18 06:00 Pulse Rate 83 11/07/18 06:00 Respiratory Rate 18 11/07/18 06:00 Blood Pressure 130/70 11/07/18 06:00 O2 Sat by Pulse Oximetry (%) 97 11/06/18 20:51 Constitutional: Yes: No Distress Cardiovascular: Yes: Regular Rate and Rhythm Respiratory: Yes: CTA Bilaterally Gastrointestinal: Yes: Soft (NT) Edema: No Neurological: Yes: Alert ...Motor Strength: WNL Additional Findings/Remarks: echo 10/2018: nl lv/rv, no sig valve path mibi 10/2018: nl mpi Labs: CBC, BMP 11/07/18 05:30 11/07/18 05:30 INR, PTT INR 1.14 (0.83-1.09) H 11/01/18 16:30 Laboratory Tests 11/07/18 11/07/18 05:30 05:30 WBC 7.1 Hgb 10.6 L Hct 31.5 L Plt Count 154 Sodium 135 L Potassium 4.8 Creatinine 1.2 Magnesium 1.6 L - ....Imaging EKG: Image Reviewed Assessment/Plan Assessment/Plan A/P: 73 f hx htn, hld, dm, hypothyroid, here with syncope. 1. Syncope, bradycardia, hypotension: -syncope seems to be vagal episode from straining for BM and abd pain -she also had junctional bradycardia likely 2/2 to k in 7's. After HD to correct K her hr and rhythm normalized. 2. Manuel, hyperkalemia: -Improved 3. n/v, abd pain: -resolved 4.HTN: -holding home meds for now given hypotension initially -BP stable 5. Periop assessment: -There are presently no absolute cardiac contraindications to the planned hernia repair (normal EF and recent nuclear stress w/out ischemia) -Monitor on telemetry post op.
[2018-11-07] MEDS ORDERED: cefTRIAXone SODIUM 1 GM VIAL ONE (09:50)
[2018-11-07] MEDS ORDERED: SODIUM CHLORIDE 50 ML IVPB ONE (09:51)
[2018-11-07] MEDS ORDERED: INSULIN (NOVOLOG) ASPART 100 UNITS/ML 10ML VIAL SQ ONE (10:00)
[2018-11-07] MEDS: AZITHROMYCIN IVPB 500 MG in SODIUM CHLORIDE 250 ML IVPB SCH (10:06)
[2018-11-07] MEDS: CEFTRIAXONE 1 GM in SODIUM CHLORIDE 50 ML IVPB SCH (10:06)
--- NOTE | 2018-11-07 10:11 | PN ---
Progress Note, Physician Chief Complaint: Ms Vila still having lower abdominal pain but controlled. No cp or sob. - Current Medication List Current Medications: Active Medications Albuterol/Ipratropium (Duoneb -) 1 amp NEB Q4H PRN PRN Reason: SHORTNESS OF BREATH Last Admin: 11/07/18 07:42 Dose: 1 amp Atorvastatin Calcium (Lipitor -) 10 mg PO HS [facility] Last Admin: 11/06/18 21:48 Dose: 10 mg Heparin Sodium (Porcine) (Heparin -) 5,000 unit SQ TID [facility] Last Admin: 11/07/18 06:04 Dose: Not Given Azithromycin 500 mg/ Sodium (Chloride) 250 mls @ 250 mls/hr IVPB DAILY [facility] Last Admin: 11/06/18 11:11 Dose: 250 mls/hr Ceftriaxone Sodium 1 gm/ (Sodium Chloride) 50 mls @ 100 mls/hr IVPB DAILY [facility]; Protocol Last Admin: 11/06/18 10:01 Dose: 100 mls/hr Insulin Aspart (Novolog Vial Sliding Scale -) 1 vial SQ HS [facility]; Protocol Last Admin: 11/06/18 23:00 Dose: 8 units Insulin Aspart (Novolog Vial Sliding Scale -) 1 vial SQ TIDAC [facility]; Protocol Last Admin: 11/07/18 06:21 Dose: Not Given Insulin Detemir (Levemir Vial) 20 units SQ DAILY@0700 [facility] Last Admin: 11/07/18 06:05 Dose: Not Given Levothyroxine Sodium (Synthroid -) 50 mcg PO DAILY@0700 [facility] Last Admin: 11/07/18 06:05 Dose: Not Given - Objective Vital Signs: Vital Signs Temperature 36.8 C 11/07/18 06:00 Pulse Rate 83 11/07/18 06:00 Respiratory Rate 18 11/07/18 06:00 Blood Pressure 130/70 11/07/18 06:00 O2 Sat by Pulse Oximetry (%) 97 11/06/18 20:51 Constitutional: Yes: Well Nourished, No Distress, Calm Cardiovascular: Yes: Regular Rate and Rhythm. No: Gallop, Murmur, Rub Respiratory: Yes: Regular, CTA Bilaterally. No: Rales, Rhonchi, Wheezes Gastrointestinal: Yes: Normal Bowel Sounds, Soft, Tenderness. No: Distention Extremities: Yes: WNL Edema: No Labs: CBC, BMP 11/07/18 05:30 11/07/18 05:30 INR, PTT INR 1.14 (0.83-1.09) H 11/01/18 16:30 Problem List - Problems (1) Ventral hernia Code(s): K43.9 - VENTRAL HERNIA WITHOUT OBSTRUCTION OR GANGRENE (2) Diabetes mellitus Code(s): E11.9 - TYPE 2 DIABETES MELLITUS WITHOUT COMPLICATIONS Qualifiers: Diabetes mellitus type: type 2 Qualified Code(s): E11.9 - Type 2 diabetes mellitus without complications (3) HTN (hypertension) Code(s): I10 - ESSENTIAL (PRIMARY) HYPERTENSION Qualifiers: Hypertension type: essential hypertension Qualified Code(s): I10 - Essential (primary) hypertension (4) Hypercholesteremia Code(s): E78.0 - PURE HYPERCHOLESTEROLEMIA * DO NOT USE * (5) Acute respiratory failure Code(s): J96.00 - ACUTE RESPIRATORY FAILURE, UNSP W HYPOXIA OR HYPERCAPNIA (6) Pneumonia Code(s): J18.9 - PNEUMONIA, UNSPECIFIED ORGANISM (7) LOPEZ (acute kidney injury) Code(s): N17.9 - ACUTE KIDNEY FAILURE, UNSPECIFIED (8) Hyperkalemia Code(s): E87.5 - HYPERKALEMIA Assessment/Plan (1) Ventral hernia Assessment/Plan: -surgery to see today and decide on repair Code(s): K43.9 - VENTRAL HERNIA WITHOUT OBSTRUCTION OR GANGRENE (2) Diabetes mellitus Assessment/Plan: -daughter says on much higher insulin regimen at home -Dr Henry is being conservative here to prevent hypoglycemia -continue insulin per Dr Henry Code(s): E11.9 - TYPE 2 DIABETES MELLITUS WITHOUT COMPLICATIONS Qualifiers: Diabetes mellitus type: type 2 Qualified Code(s): E11.9 - Type 2 diabetes mellitus without complications (3) HTN (hypertension) Assessment/Plan: -normotensive Code(s): I10 - ESSENTIAL (PRIMARY) HYPERTENSION Qualifiers: Hypertension type: essential hypertension Qualified Code(s): I10 - Essential (primary) hypertension (4) Hypercholesteremia Assessment/Plan: -continue lipitor Code(s): E78.0 - PURE HYPERCHOLESTEROLEMIA * DO NOT USE * (5) Acute respiratory failure Assessment/Plan: -secondary to acute event on admission and pneumonia -improving -pulmonary following -wean off oxygen as tolerated Code(s): J96.00 - ACUTE RESPIRATORY FAILURE, UNSP W HYPOXIA OR HYPERCAPNIA (6) Pneumonia Assessment/Plan: -stop zithromax -continue rocephin -day 6 of antibiotics Code(s): J18.9 - PNEUMONIA, UNSPECIFIED ORGANISM (7) LOPEZ (acute kidney injury) Assessment/Plan: -resolved Code(s): N17.9 - ACUTE KIDNEY FAILURE, UNSPECIFIED (8) Hyperkalemia Assessment/Plan: -resolved Code(s): E87.5 - HYPERKALEMIA
--- NOTE | 2018-11-07 11:33 | PN ---
Progress Note, Physician History of Present Illness: PULMONARY ALERT,COMFORTABLE,-SOB,-CP. PT SCHEDULED FOR HERNIA REPAIR TODAY. O2 SAT 98% ON NASAL O2 - Current Medication List Current Medications: Active Medications Albuterol/Ipratropium (Duoneb -) 1 amp NEB Q4H PRN PRN Reason: SHORTNESS OF BREATH Last Admin: 11/07/18 07:42 Dose: 1 amp Atorvastatin Calcium (Lipitor -) 10 mg PO HS [facility] Last Admin: 11/06/18 21:48 Dose: 10 mg Heparin Sodium (Porcine) (Heparin -) 5,000 unit SQ TID [facility] Last Admin: 11/07/18 06:04 Dose: Not Given Ceftriaxone Sodium 1 gm/ (Sodium Chloride) 50 mls @ 100 mls/hr IVPB DAILY [facility]; Protocol Last Admin: 11/07/18 10:06 Dose: 100 mls/hr Insulin Aspart (Novolog Vial Sliding Scale -) 1 vial SQ HS [facility]; Protocol Last Admin: 11/07/18 10:05 Dose: 6 units Insulin Aspart (Novolog Vial Sliding Scale -) 1 vial SQ TIDAC [facility]; Protocol Last Admin: 11/07/18 06:21 Dose: Not Given Insulin Detemir (Levemir Vial) 20 units SQ DAILY@0700 [facility] Last Admin: 11/07/18 06:05 Dose: Not Given Levothyroxine Sodium (Synthroid -) 50 mcg PO DAILY@0700 [facility] Last Admin: 11/07/18 06:05 Dose: Not Given - Objective Vital Signs: Vital Signs Temperature 98.2 F 11/07/18 06:00 Pulse Rate 83 11/07/18 06:00 Respiratory Rate 18 11/07/18 06:00 Blood Pressure 130/70 11/07/18 06:00 O2 Sat by Pulse Oximetry (%) 97 11/06/18 20:51 Constitutional: Yes: Well Nourished, Calm Eyes: Yes: WNL, Other Neck: Yes: WNL Cardiovascular: Yes: Regular Rate and Rhythm, S1, S2 Respiratory: Yes: CTA Bilaterally Gastrointestinal: Yes: Normal Bowel Sounds, Soft Extremities: Yes: WNL Edema: No Labs: CBC, BMP 11/07/18 05:30 11/07/18 05:30 INR, PTT INR 1.14 (0.83-1.09) H 11/01/18 16:30 Problem List - Problems (1) Hypoxemia Code(s): R09.02 - HYPOXEMIA (2) LOPEZ (acute kidney injury) Code(s): N17.9 - ACUTE KIDNEY FAILURE, UNSPECIFIED (3) Bradycardia Code(s): R00.1 - BRADYCARDIA, UNSPECIFIED (4) Diabetes mellitus Code(s): E11.9 - TYPE 2 DIABETES MELLITUS WITHOUT COMPLICATIONS Qualifiers: Diabetes mellitus type: type 2 Qualified Code(s): E11.9 - Type 2 diabetes mellitus without complications (5) HTN (hypertension) Code(s): I10 - ESSENTIAL (PRIMARY) HYPERTENSION Qualifiers: Hypertension type: essential hypertension Qualified Code(s): I10 - Essential (primary) hypertension (6) Hypercholesteremia Code(s): E78.0 - PURE HYPERCHOLESTEROLEMIA * DO NOT USE * (7) Pneumonia Code(s): J18.9 - PNEUMONIA, UNSPECIFIED ORGANISM Assessment/Plan ASSESSMENT AND PLAN: Junctional Bradycardia resolved Hyperkalemia improved Acute Kidney Injury requiring acute HD Pneumonia improved HTN DM Hyperlipidemia Hypothyroidism r/o Obstructive Sleep Apnea - monitor urine output, creatinine - antibiotics - DVT prophylaxis - outpt PSG - inhaled bronchodilators - hernia repair today DR LARSON
[2018-11-07 13:44] VITALS: BMI 29.1
--- NOTE | 2018-11-07 15:03 | PN ---
Progress Note, Physician History of Present Illness: Pt seen and examined at bedside. She is awake and alert. She denies shortness of breath. - Current Medication List Current Medications: Active Medications Albuterol/Ipratropium (Duoneb -) 1 amp NEB Q4H PRN PRN Reason: SHORTNESS OF BREATH Last Admin: 11/07/18 07:42 Dose: 1 amp Atorvastatin Calcium (Lipitor -) 10 mg PO HS [facility] Last Admin: 11/06/18 21:48 Dose: 10 mg Heparin Sodium (Porcine) (Heparin -) 5,000 unit SQ TID [facility] Last Admin: 11/07/18 06:04 Dose: Not Given Ceftriaxone Sodium 1 gm/ (Sodium Chloride) 50 mls @ 100 mls/hr IVPB DAILY [facility]; Protocol Last Admin: 11/07/18 10:06 Dose: 100 mls/hr Insulin Aspart (Novolog Vial Sliding Scale -) 1 vial SQ HS [facility]; Protocol Last Admin: 11/07/18 10:05 Dose: 6 units Insulin Aspart (Novolog Vial Sliding Scale -) 1 vial SQ TIDAC [facility]; Protocol Last Admin: 11/07/18 12:17 Dose: 6 units Insulin Detemir (Levemir Vial) 20 units SQ DAILY@0700 [facility] Last Admin: 11/07/18 06:05 Dose: Not Given Levothyroxine Sodium (Synthroid -) 50 mcg PO DAILY@0700 [facility] Last Admin: 11/07/18 06:05 Dose: Not Given - Objective Vital Signs: Vital Signs Temperature 97.9 F 11/07/18 14:17 Pulse Rate 87 11/07/18 14:17 Respiratory Rate 16 11/07/18 14:17 Blood Pressure 143/64 11/07/18 14:17 O2 Sat by Pulse Oximetry (%) 97 11/06/18 20:51 Constitutional: Yes: Calm Eyes: Yes: Conjunctiva Clear HENT: Yes: Atraumatic Neck: Yes: Supple Cardiovascular: Yes: S1, S2 Respiratory: Yes: CTA Bilaterally Gastrointestinal: Yes: Normal Bowel Sounds, Soft Genitourinary: Yes: WNL Musculoskeletal: Yes: WNL Edema: No Neurological: Yes: Oriented Psychiatric: Yes: Oriented Labs: CBC, BMP 11/07/18 05:30 11/07/18 05:30 INR, PTT INR 1.14 (0.83-1.09) H 11/01/18 16:30 Problem List - Problems (1) LOPEZ (acute kidney injury) Code(s): N17.9 - ACUTE KIDNEY FAILURE, UNSPECIFIED (2) Bradycardia Code(s): R00.1 - BRADYCARDIA, UNSPECIFIED (3) Hyperkalemia Code(s): E87.5 - HYPERKALEMIA (4) Hypotension Code(s): I95.9 - HYPOTENSION, UNSPECIFIED Qualifiers: Hypotension type: unspecified hypotension type Qualified Code(s): I95.9 - Hypotension, unspecified (5) Diabetes mellitus Code(s): E11.9 - TYPE 2 DIABETES MELLITUS WITHOUT COMPLICATIONS Qualifiers: Diabetes mellitus type: type 2 Qualified Code(s): E11.9 - Type 2 diabetes mellitus without complications Assessment/Plan Current Medications Generic Name Dose Route Start Last Admin Trade Name Freq PRN Reason Stop Dose Admin Albuterol/Ipratropium 1 amp 11/04/18 12:02 11/07/18 07:42 Duoneb - NEB 1 amp Q4H PRN Administration SHORTNESS OF BREATH Atorvastatin Calcium 10 mg 11/03/18 22:00 11/06/18 21:48 Lipitor - PO 10 mg HS [facility] Administration Heparin Sodium (Porcine) 5,000 unit 11/03/18 22:00 11/07/18 06:04 Heparin - SQ Not Given TID [facility] Ceftriaxone Sodium 1 gm/ 50 mls @ 100 mls/hr 11/06/18 10:00 11/07/18 10:06 Sodium Chloride IVPB 100 mls/hr DAILY [facility] Administration Protocol Insulin Aspart 1 vial 11/04/18 22:00 11/07/18 10:05 Novolog Vial Sliding Scale - SQ 6 units HS [facility] Administration Protocol Insulin Aspart 1 vial 11/05/18 18:36 11/07/18 12:17 Novolog Vial Sliding Scale - SQ 6 units TIDAC [facility] Administration Protocol Insulin Detemir 20 units 11/06/18 07:00 11/07/18 06:05 Levemir Vial SQ Not Given DAILY@0700 [facility] Levothyroxine Sodium 50 mcg 11/04/18 07:00 11/07/18 06:05 Synthroid - PO Not Given DAILY@0700 [facility] Laboratory Tests 11/05/18 16:10 Urine Protein Negative Urine Glucose (UA) 3+ H Urine Blood Negative Impression 1. LOPEZ 2. hyperkalemia 3. metabolic acidosis 4. DM 5. hernia 6. hypothyroidism Plan - renal function stable - repeat ua neg blood or protein - will need better glucose control - can restart amlodipine of bp elevated - discussed with family
[2018-11-07 15:23] LABS: MACROCYTOSIS 1+; PLATELET ESTIMATE ADEQUATE
--- NOTE | 2018-11-07 16:18 | PN ---
Progress Note (short form) - Note Progress Note: Patient still on O2 and recovering from respiratory infection.She is not optimised for an elective surgery.
--- NOTE | 2018-11-07 16:20 | PN ---
Progress Note (short form) - Note Progress Note: Also spoke to DR Motta and case is cancelled. Patient still on O2 and recovering from respiratory infection.She is not optimised for an elective surgery.
--- NOTE | 2018-11-07 17:16 | PN ---
Progress Note (short form) - Note Progress Note: Feels better No abd pain No N/V Improving apetite Surgery postponed Vital Signs Period Temp Pulse Resp BP Sys/[place] Pulse Ox Last 24 Hr 97.9 F-98.7 F 82-88 16-20 128-143/60-74 97-99 PE: AOx3 Neck: Supple, No JVD HEENT: PERRL, EOMI Lungs: CTA CVS: S1S2 Abd: Benign EXt: No edema Neuro: No focal deficit CMP Sodium 135 mmol/L (136-145) L 11/07/18 05:30 Potassium 4.8 mmol/L (3.5-5.1) 11/07/18 05:30 Chloride 103 mmol/L (98-107) 11/07/18 05:30 Carbon Dioxide 20 mmol/L (21-32) L 11/07/18 05:30 Anion Gap 11 MMOL/L (8-16) 11/07/18 05:30 BUN 27 mg/dL (7-18) H 11/07/18 05:30 Creatinine 1.2 mg/dL (0.55-1.3) 11/07/18 05:30 Creat Clearance w eGFR 43.91 (>60) 11/07/18 05:30 POC Glucometer 349 UNITS (80-120) 11/07/18 14:24 Random Glucose 391 mg/dL (74-106) H* 11/07/18 05:30 Hemoglobin A1c % 7.0 % (4.2-6.3) H 11/04/18 05:30 Lactic Acid 2.1 mmol/L (0.4-2.0) H 11/01/18 23:10 Calcium 9.0 mg/dL (8.5-10.1) 11/07/18 05:30 Phosphorus 4.2 mg/dL (2.5-4.9) 11/07/18 05:30 Magnesium 1.6 mg/dL (1.8-2.4) L 11/07/18 05:30 Total Bilirubin 0.7 mg/dL (0.2-1) 11/05/18 06:00 AST 56 U/L (15-37) H 11/05/18 06:00 ALT 47 U/L (13-61) 11/05/18 06:00 Alkaline Phosphatase 69 U/L (45-117) 11/05/18 06:00 Troponin I 0.07 ng/ml (0.00-0.05) H 11/01/18 16:30 Total Protein 7.5 g/dl (6.4-8.2) 11/05/18 06:00 Total Protein (PEP) 6.6 g/dL (6.0-8.5) 11/02/18 05:30 Albumin 3.6 g/dl (3.4-5.0) 11/05/18 06:00 Albumin (PEP) 3.4 gm/dl (2.9-4.4) 11/02/18 05:30 Globulin 3.2 g/dL (2.2-3.9) 11/02/18 05:30 Albumin/Globulin Ratio 1.1 (0.7-1.7) 11/02/18 05:30 Beta Globulins 1.3 gm/dL (0.7-1.3) 11/02/18 05:30 TSH 7.86 uIU/ml (0.358-3.74) H 11/01/18 11:40 Free T3 2.5 pg/ml (2.0-4.4) 11/01/18 20:35 Current Medications Generic Name Dose Route Start Last Admin Trade Name Freq PRN Reason Stop Dose Admin Albuterol/Ipratropium 1 amp 11/04/18 12:02 11/07/18 07:42 Duoneb - NEB 1 amp Q4H PRN Administration SHORTNESS OF BREATH Atorvastatin Calcium 10 mg 11/03/18 22:00 11/06/18 21:48 Lipitor - PO 10 mg HS [facility] Administration Heparin Sodium (Porcine) 5,000 unit 11/03/18 22:00 11/07/18 06:04 Heparin - SQ Not Given TID [facility] Ceftriaxone Sodium 1 gm/ 50 mls @ 100 mls/hr 11/06/18 10:00 11/07/18 10:06 Sodium Chloride IVPB 100 mls/hr DAILY [facility] Administration Protocol Insulin Aspart 1 vial 11/04/18 22:00 11/07/18 10:05 Novolog Vial Sliding Scale - SQ 6 units HS [facility] Administration Protocol Insulin Aspart 1 vial 11/05/18 18:36 11/07/18 12:17 Novolog Vial Sliding Scale - SQ 6 units TIDAC [facility] Administration Protocol Insulin Detemir 20 units 11/06/18 07:00 11/07/18 06:05 Levemir Vial SQ Not Given DAILY@0700 [facility] Levothyroxine Sodium 50 mcg 11/04/18 07:00 11/07/18 06:05 Synthroid - PO Not Given DAILY@0700 [facility] AP: Pneumonia LOPEZ Hyperkalemia T2DM: A1c 6.6 Hypothyroidism IV Abx Bronchodilators BGM QACHS Increase Levemir 25 units BID Increase Novolog SS coverage Surgery postponed Discusse with family at bedside Pt to take 4 to 6 units less of Novolog with meals and to take Lantus 15 units less than what she was taking before admission untill her apetite returns to normal. To call me with any questions. Will f/u Problem List - Problems (1) LOPEZ (acute kidney injury) Code(s): N17.9 - ACUTE KIDNEY FAILURE, UNSPECIFIED (2) Bradycardia Code(s): R00.1 - BRADYCARDIA, UNSPECIFIED (3) Hyperkalemia Code(s): E87.5 - HYPERKALEMIA (4) Hypotension Code(s): I95.9 - HYPOTENSION, UNSPECIFIED Qualifiers: Hypotension type: unspecified hypotension type Qualified Code(s): I95.9 - Hypotension, unspecified (5) Hypoxemia Code(s): R09.02 - HYPOXEMIA (6) Diabetes mellitus Code(s): E11.9 - TYPE 2 DIABETES MELLITUS WITHOUT COMPLICATIONS Qualifiers: Diabetes mellitus type: type 2 Qualified Code(s): E11.9 - Type 2 diabetes mellitus without complications
[2018-11-07] MEDS: ATORVASTATIN CA 10 MG TABLET (FP) PO SCH (21:10)
[2018-11-07] MEDS: METHYL SALICYLATE/MENTHOL OINT 30 GM TUBE TP SCH (21:11)
[2018-11-08] MEDS: HEPARIN NA (PORCINE) 5,000 UNITS/ML 1ML VIAL SQ SCH (05:44)
[2018-11-08 05:47] LABS: BASO % 0.6 % (0-2.0); EOS % 2.5 % (0-4.5); HEMATOCRIT 31.6 % (32.4-45.2); HEMOGLOBIN 10.7 GM/dL (10.7-15.3); LYMPH % 21.1 % (8-40); MCH 32.1 pg (25.7-33.7); MCHC 33.7 g/dl (32.0-36.0); MEAN CELL VOLUME 95.1 fl (80-96); MEAN PLT VOLUME 10.8 fl (7.5-11.1); MONO % 8.1 % (3.8-10.2); NEUT % 67.7 % (42.8-82.8); PLATELET COUNT 170 K/MM3 (134-434); RBC 3.33 M/mm3 (3.60-5.2); RDW 13.1 % (11.6-15.6)
[2018-11-08 06:21] LABS: ANION GAP 9 MMOL/L (8-16); BLOOD UREA NITROGEN 27 mg/dL (7-18); CALCIUM 9.3 mg/dL (8.5-10.1); CHLORIDE 103 mmol/L (98-107); CO2 21 mmol/L (21-32); CREATININE 1.1 mg/dL (0.55-1.3); PHOSPHOROUS 4.2 mg/dL (2.5-4.9); POTASSIUM 5.1 mmol/L (3.5-5.1); SODIUM 133 mmol/L (136-145)
[2018-11-08] MEDS: INSULIN (LEVEMIR) 100 UNITS/ML UNITS SQ SCH (06:44)
[2018-11-08] MEDS: LEVOTHYROXINE NA 50 MCG TABLET (FP) PO SCH (06:44)
[2018-11-08 07:27] LABS: GLUCOSE,RANDOM 350 mg/dL (74-106)
--- NOTE | 2018-11-08 08:40 | PN ---
Progress Note (short form) - Note Progress Note: Feels better No abd pain No N/V Improving apetite Surgery postponed, eager to go home Vital Signs Period Temp Pulse Resp BP Sys/[place] Pulse Ox Last 24 Hr 97.7 F-98.9 F 82-88 16-20 138-154/64-80 98-99 PE: AOx3 Neck: Supple, No JVD HEENT: PERRL, EOMI Lungs: CTA CVS: S1S2 Abd: Benign EXt: No edema Neuro: No focal deficit CMP Sodium 133 mmol/L (136-145) L 11/08/18 05:30 Potassium 5.1 mmol/L (3.5-5.1) 11/08/18 05:30 Chloride 103 mmol/L (98-107) 11/08/18 05:30 Carbon Dioxide 21 mmol/L (21-32) 11/08/18 05:30 Anion Gap 9 MMOL/L (8-16) 11/08/18 05:30 BUN 27 mg/dL (7-18) H 11/08/18 05:30 Creatinine 1.1 mg/dL (0.55-1.3) 11/08/18 05:30 Creat Clearance w eGFR 48.55 (>60) 11/08/18 05:30 POC Glucometer 346 UNITS (80-120) 11/08/18 05:43 Random Glucose 350 mg/dL (74-106) H* 11/08/18 05:30 Hemoglobin A1c % 7.0 % (4.2-6.3) H 11/04/18 05:30 Lactic Acid 2.1 mmol/L (0.4-2.0) H 11/01/18 23:10 Calcium 9.3 mg/dL (8.5-10.1) 11/08/18 05:30 Phosphorus 4.2 mg/dL (2.5-4.9) 11/08/18 05:30 Magnesium 2.0 mg/dL (1.8-2.4) 11/08/18 05:30 Total Bilirubin 0.7 mg/dL (0.2-1) 11/05/18 06:00 AST 56 U/L (15-37) H 11/05/18 06:00 ALT 47 U/L (13-61) 11/05/18 06:00 Alkaline Phosphatase 69 U/L (45-117) 11/05/18 06:00 Troponin I 0.07 ng/ml (0.00-0.05) H 11/01/18 16:30 Total Protein 7.5 g/dl (6.4-8.2) 11/05/18 06:00 Total Protein (PEP) 6.6 g/dL (6.0-8.5) 11/02/18 05:30 Albumin 3.6 g/dl (3.4-5.0) 11/05/18 06:00 Albumin (PEP) 3.4 gm/dl (2.9-4.4) 11/02/18 05:30 Globulin 3.2 g/dL (2.2-3.9) 11/02/18 05:30 Albumin/Globulin Ratio 1.1 (0.7-1.7) 11/02/18 05:30 Beta Globulins 1.3 gm/dL (0.7-1.3) 11/02/18 05:30 TSH 7.86 uIU/ml (0.358-3.74) H 11/01/18 11:40 Free T3 2.5 pg/ml (2.0-4.4) 11/01/18 20:35 Current Medications Generic Name Dose Route Start Last Admin Trade Name Freq PRN Reason Stop Dose Admin Albuterol/Ipratropium 1 amp 11/04/18 12:02 11/07/18 20:49 Duoneb - NEB 1 amp Q4H PRN Administration SHORTNESS OF BREATH Atorvastatin Calcium 10 mg 11/03/18 22:00 11/07/18 21:10 Lipitor - PO 10 mg HS SU Administration Heparin Sodium (Porcine) 5,000 unit 11/03/18 22:00 11/08/18 05:44 Heparin - SQ 5,000 unit TID SU Administration Ceftriaxone Sodium 1 gm/ 50 mls @ 100 mls/hr 11/06/18 10:00 11/07/18 10:06 Sodium Chloride IVPB 100 mls/hr DAILY SU Administration Protocol Insulin Aspart 1 vial 11/04/18 22:00 11/07/18 21:10 Novolog Vial Sliding Scale - SQ 8 units HS SU Administration Protocol Insulin Aspart 1 vial 11/08/18 07:00 Novolog Vial Sliding Scale - SQ TIDAC SU Protocol Insulin Detemir 25 units 11/07/18 22:00 11/08/18 06:44 Levemir Vial SQ 25 units BID@0700,2200 SU Administration Levothyroxine Sodium 50 mcg 11/04/18 07:00 11/08/18 06:44 Synthroid - PO 50 mcg DAILY@0700 SU Administration Methyl Salicylate 1 applic 11/07/18 20:15 11/07/18 21:11 Lee-Colby - TP 1 applic DAILY SU Administration AP: Pneumonia LOPEZ Hyperkalemia T2DM: A1c 6.6 Hypothyroidism IV Abx Bronchodilators BGM QACHS Continue Levemir 25 units BID Continue Novolog SS coverage Surgery postponed Pt to take 4 to 6 units less of Novolog with meals and to take Lantus 15 units less than what she was taking before admission untill her apetite returns to normal. To call me with any questions. Will f/u Problem List - Problems (1) LOPEZ (acute kidney injury) Code(s): N17.9 - ACUTE KIDNEY FAILURE, UNSPECIFIED (2) Bradycardia Code(s): R00.1 - BRADYCARDIA, UNSPECIFIED (3) Hyperkalemia Code(s): E87.5 - HYPERKALEMIA (4) Hypotension Code(s): I95.9 - HYPOTENSION, UNSPECIFIED Qualifiers: Hypotension type: unspecified hypotension type Qualified Code(s): I95.9 - Hypotension, unspecified (5) Hypoxemia Code(s): R09.02 - HYPOXEMIA (6) Diabetes mellitus Code(s): E11.9 - TYPE 2 DIABETES MELLITUS WITHOUT COMPLICATIONS Qualifiers: Diabetes mellitus type: type 2 Qualified Code(s): E11.9 - Type 2 diabetes mellitus without complications
[2018-11-08] MEDS: INSULIN SLIDING SCALE (NOVOLOG) 1 VIAL SQ SCH ×2 (08:42→12:10)
[2018-11-08] MEDS ORDERED: cefTRIAXone SODIUM 1 GM VIAL ONE (09:36)
[2018-11-08] MEDS ORDERED: SODIUM CHLORIDE 50 ML IVPB ONE (09:37)
[2018-11-08] MEDS: CEFTRIAXONE 1 GM in SODIUM CHLORIDE 50 ML IVPB SCH (09:39)
--- NOTE | 2018-11-08 10:14 | PN ---
Progress Note, Physician History of Present Illness: PULMONARY ALERT,NO DISTRESS,-CP,-SOB. SURGERY POSTPONED .O2 SAT 98% ON RA - Current Medication List Current Medications: Active Medications Albuterol/Ipratropium (Duoneb -) 1 amp NEB Q4H PRN PRN Reason: SHORTNESS OF BREATH Last Admin: 11/07/18 20:49 Dose: 1 amp Atorvastatin Calcium (Lipitor -) 10 mg PO HS [facility] Last Admin: 11/07/18 21:10 Dose: 10 mg Heparin Sodium (Porcine) (Heparin -) 5,000 unit SQ TID [facility] Last Admin: 11/08/18 05:44 Dose: 5,000 unit Ceftriaxone Sodium 1 gm/ (Sodium Chloride) 50 mls @ 100 mls/hr IVPB DAILY [facility]; Protocol Last Admin: 11/08/18 09:39 Dose: 100 mls/hr Insulin Aspart (Novolog Vial Sliding Scale -) 1 vial SQ HS [facility]; Protocol Last Admin: 11/07/18 21:10 Dose: 8 units Insulin Aspart (Novolog Vial Sliding Scale -) 1 vial SQ TIDAC [facility]; Protocol Last Admin: 11/08/18 08:42 Dose: 18 units Insulin Detemir (Levemir Vial) 25 units SQ BID@0700,2200 [facility] Last Admin: 11/08/18 06:44 Dose: 25 units Levothyroxine Sodium (Synthroid -) 50 mcg PO DAILY@0700 [facility] Last Admin: 11/08/18 06:44 Dose: 50 mcg Methyl Salicylate (Ele-Colby -) 1 applic TP DAILY [facility] Last Admin: 11/07/18 21:11 Dose: 1 applic - Objective Vital Signs: Vital Signs Temperature 98.1 F 11/08/18 06:00 Pulse Rate 88 11/08/18 06:00 Respiratory Rate 20 11/08/18 06:00 Blood Pressure 154/79 11/08/18 06:00 O2 Sat by Pulse Oximetry (%) 98 11/07/18 21:00 Constitutional: Yes: Well Nourished, Calm Eyes: Yes: WNL HENT: Yes: WNL Neck: Yes: WNL Cardiovascular: Yes: Regular Rate and Rhythm, S1, S2 Respiratory: Yes: CTA Bilaterally Gastrointestinal: Yes: Normal Bowel Sounds, Soft Extremities: Yes: WNL Edema: No Labs: CBC, BMP 11/08/18 05:30 11/08/18 05:30 INR, PTT INR 1.14 (0.83-1.09) H 11/01/18 16:30 Problem List - Problems (1) Hypoxemia Code(s): R09.02 - HYPOXEMIA (2) LOPEZ (acute kidney injury) Code(s): N17.9 - ACUTE KIDNEY FAILURE, UNSPECIFIED (3) Bradycardia Code(s): R00.1 - BRADYCARDIA, UNSPECIFIED (4) Diabetes mellitus Code(s): E11.9 - TYPE 2 DIABETES MELLITUS WITHOUT COMPLICATIONS Qualifiers: Diabetes mellitus type: type 2 Qualified Code(s): E11.9 - Type 2 diabetes mellitus without complications (5) HTN (hypertension) Code(s): I10 - ESSENTIAL (PRIMARY) HYPERTENSION Qualifiers: Hypertension type: essential hypertension Qualified Code(s): I10 - Essential (primary) hypertension (6) Hypercholesteremia Code(s): E78.0 - PURE HYPERCHOLESTEROLEMIA * DO NOT USE * (7) Pneumonia Code(s): J18.9 - PNEUMONIA, UNSPECIFIED ORGANISM Assessment/Plan ASSESSMENT AND PLAN: Junctional Bradycardia resolved Hyperkalemia improved Acute Kidney Injury requiring acute HD Pneumonia improved HTN DM Hyperlipidemia Hypothyroidism r/o Obstructive Sleep Apnea - monitor urine output, creatinine - antibiotics - DVT prophylaxis - outpt PSG - inhaled bronchodilators - ambulatory o2 sat on ra DR LARSON
[2018-11-08 10:32] VITALS: PULSE 99
--- NOTE | 2018-11-08 11:16 | PN ---
Progress Note (short form) - Note Progress Note: Chief Complaint: no chest pain or SOB TELE: NSR Current Medications Albuterol/Ipratropium (Duoneb -) 1 amp NEB Q4H PRN PRN Reason: SHORTNESS OF BREATH Last Admin: 11/07/18 20:49 Dose: 1 amp Atorvastatin Calcium (Lipitor -) 10 mg PO HS [facility] Last Admin: 11/07/18 21:10 Dose: 10 mg Heparin Sodium (Porcine) (Heparin -) 5,000 unit SQ TID [facility] Last Admin: 11/08/18 05:44 Dose: 5,000 unit Ceftriaxone Sodium 1 gm/ (Sodium Chloride) 50 mls @ 100 mls/hr IVPB DAILY [facility]; Protocol Last Admin: 11/08/18 09:39 Dose: 100 mls/hr Insulin Aspart (Novolog Vial Sliding Scale -) 1 vial SQ HS [facility]; Protocol Last Admin: 11/07/18 21:10 Dose: 8 units Insulin Aspart (Novolog Vial Sliding Scale -) 1 vial SQ TIDAC [facility]; Protocol Last Admin: 11/08/18 08:42 Dose: 18 units Insulin Detemir (Levemir Vial) 25 units SQ BID@0700,2200 [facility] Last Admin: 11/08/18 06:44 Dose: 25 units Levothyroxine Sodium (Synthroid -) 50 mcg PO DAILY@0700 [facility] Last Admin: 11/08/18 06:44 Dose: 50 mcg Methyl Salicylate (Lee-Colby -) 1 applic TP DAILY [facility] Last Admin: 11/07/18 21:11 Dose: 1 applic Vital Signs Period Temp Pulse Resp BP Sys/[place] Pulse Ox Last 24 Hr 97.7 F-98.9 F 85-99 16-20 143-154/64-80 95-98 Constitutional: Yes: No Distress Cardiovascular: Yes: Regular Rate and Rhythm Respiratory: Yes: CTA Bilaterally Gastrointestinal: Yes: Soft (NT) Edema: No Neurological: Yes: Alert ...Motor Strength: WNL Additional Findings/Remarks: echo 10/2018: nl lv/rv, no sig valve path mibi 10/2018: nl mpi - ....Imaging EKG: Image Reviewed Assessment/Plan A/P: 73 f hx htn, hld, dm, hypothyroid, here with syncope. 1. Syncope, bradycardia, hypotension: -syncope seems to be vagal episode from straining for BM and abd pain -she also had junctional bradycardia likely 2/2 to k in 7's. After HD to correct K her hr and rhythm normalized, no events on tele 2. Manuel, hyperkalemia: -Improved 3. n/v, abd pain: -resolved 4.HTN: -holding home meds for now given hypotension initially -BP stable 5. Periop assessment: -There are presently no absolute cardiac contraindications to the planned hernia repair (normal EF and recent nuclear stress w/out ischemia) -Monitor on telemetry post op.
[2018-11-08] MEDS: METHYL SALICYLATE/MENTHOL OINT 30 GM TUBE TP SCH (12:30)
[2018-11-08 13:28] VITALS: BP 142/72; TEMP 97.9
== END 2018-11-08 13:36 | disposition home or self-care (01) | DRG 682 ==
LOC: FER 11:13 → JICU 15:08 → MERGE 15:53 → JICU 15:53 → J4W 11-03 20:21 → J4S 11-04 17:57
PROVIDERS: ADMIT Internal Medicine; ATTEND Internal Medicine
PROC: 06HN33Z Insertion of Infusion Device into Left Femoral Vein, Percutaneous Approach (ICD-10-PCS; principal; 2018-11-01)
PROC: 5A1D70Z Performance of Urinary Filtration, Intermittent, Less than 6 Hours Per Day (ICD-10-PCS; 2018-11-01)
DX: N17.9 Acute kidney failure, unspecified (principal); J18.9 Pneumonia, unspecified organism; E87.1 Hypo-osmolality and hyponatremia; E87.2 Acidosis; J90 Pleural effusion, not elsewhere classified; R00.1 Bradycardia, unspecified; I10 Essential (primary) hypertension; E11.9 Type 2 diabetes mellitus without complications; E03.9 Hypothyroidism, unspecified; E78.5 Hyperlipidemia, unspecified; E87.5 Hyperkalemia; E83.42 Hypomagnesemia; K43.9 Ventral hernia without obstruction or gangrene; G47.33 Obstructive sleep apnea (adult) (pediatric); R11.2 Nausea with vomiting, unspecified; I95.9 Hypotension, unspecified; R09.02 Hypoxemia
CPT/HCPCS: 36415; 36600; 71045-TC-FY; 74018-TC-FY; 74176-TC; 76775-TC; 76856-TC; 80048; 80053; 81003; 82340; 82436; 82565; 82570; 82803; 82962; 83036; 83516; 83520; 83605; 83735; 84100; 84133; 84155; 84156; 84165; 84300; 84436; 84443; 84481; 84484; 85025; 85027; 85610; 85730; 86038; 86225; 86256; 86704; 86706; 86708; 86803; 87040; 87045; 87046; 87086; 87340; 93005; 93010; 94010; 94640; 94761; 97116-GP; 97161-GP; 99285-25; J0131; J1644; J7030